=== PATIENT | female | born 1995 | race Caucasian/White ===

== ENCOUNTER 2016-12-17 19:06 | Emergency (ER) | payer SELFPAY ==
[~2016-12-17] VITALS: Ht 154.9 cm; Wt 55.6 kg
[~2016-12-17 19:06] MED LIST: CITA20TA12 PO; HYDR25CA PO; METR500T PO; PANT20TA2 PO; PREN-53 PO; PROM25TA14 PO
[2016-12-17 19:52] LABS: BILIRUBIN,URINE NEGATIVE (NEGATIVE); KETONES,URINE NEGATIVE (NEGATIVE); LEUKOCYTE ESTERASE ,URINE 1+ (NEGATIVE); NITRITE,URINE POSITIVE (NEGATIVE); PH,URINE 6 (5-9); PROTEIN,URINE 2+ (NEGATIVE); UROBILINOGEN,URINE NORMAL (NORMAL)
[2016-12-17 20:01] LABS: WBC,URINE 25-50 /HPF
[2016-12-17 20:02] LABS: RENAL EPITHELIAL CELLS,URINE 0-2 /HPF
--- NOTE | 2016-12-17 20:57 | ED GU-Female ---
General Chief Complaint: -Female Stated Complaint: POSS UTI Nursing Triage Note: BURING WITH URINATION X2 DAYS. Nursing Sepsis Screen: No Definite Risk Source: patient Exam Limitations: no limitations History of Present Illness Time seen by provider: 20:57 Initial Comments 21-year-old female patient presents to the emergency department for complaints of burning with urination for 2 days. Patient is texting on her phone instead of paying attention to questions. Patient instructed to put her phone away during the exam. Patient states "well I just want to get taken care of!" I have advised patient that I am trying to conduct her history and exam so that she can "get taken care of". Patient states she has been spotting the last couple of days. Last menstrual period was in October. States she did have one positive test at home 2 days ago. Denies fevers, nausea, vomiting, abdominal pain. patient reports she has been drinking cranberry juice and taking pyridium for symtpoms. Patient states she lives in the "[facility]" and sees Dr. Wise in [place], [place]. States she did not go to [facility] or [facility] because "they fucking suck." Timing/Duration: other (today onset) Severity/Quality: burning Location: urethral Activities at Onset: none Prior Genitourinary Problems: similar symptoms Sexual [place] History: less than 2 months ago, single partner Modifying Factors: Worsens With Urinating Allergies and Home Medications Allergies Coded Allergies: acetaminophen (Verified Allergy, Severe, 01/01/13) ondansetron HCl (Verified Allergy, Intermediate, 01/01/13) Home Medications Cephalexin 500 Mg Capsule, 500 MG PO TID, #21 Ref 0 Prescribed by: MARIE AMAYA on 12/17/162103 Hydroxyzine Pamoate 25 Mg Capsule, 25 MG PO DAILY, (Reported) Pantoprazole Sodium 20 Mg Tablet.dr, 20 MG PO DAILY, (Reported) Phenazopyridine HCl 200 Mg Tablet, 1 TAB PO Q8H PRN for pain, #30 Ref 0 Prescribed by: MARIE AMAYA on 12/17/162103 Ndg968/Iron Fumarate/FA/Dss 1 Each Tablet, 1 EACH PO, (Reported) Promethazine HCl 25 Mg Tablet, 25 MG PO Q6H PRN for NAUSEA/VOMITING, (Reported) Constitutional: No chills, No fever, No malaise Respiratory: no symptoms reported Cardiovascular: no symptoms reported Gastrointestinal: No abdominal pain, No constipation, No diarrhea, No loss of appetite, No nausea, No vomiting Genitourinary: see HPI, burning, denies discharge, dysuria, denies frequency, denies flank pain, denies pain Musculoskeletal: no symptoms reported Skin: no symptoms reported Psychiatric/Neurological: No Symptoms Reported All Other Systemes Reviewed Negative Unless Noted: Yes (Negative excepted noted.) Past Fkjeqtm-Zfqyft-Zqvnxw Hx Patient Social History Alcohol Use: Denies Use Recreational Drug Use: No Smoking Status: Never a Smoker Recent Foreign Travel: No Contact w/Someone Who Travel: No Recent Infectious Disease Expo: No Recent Hopitalizations: No Seasonal Allergies Seasonal Allergies: No Surgeries HX Surgeries: Yes Surgeries: Tonsillectomy Respiratory Hx Respiratory Disorders: Yes Respiratory Disorders: Asthma Cardiovascular Hx Cardiac Disorders: No Neurological Hx Neurological Disorders: No Reproductive System Hx Reproductive Disorders: No Genitourinary Hx Genitourinary Disorders: No Gastrointestinal Hx Gastrointestinal Disorders: No Musculoskeletal Hx Musculoskeletal Disorders: No Endocrine Hx Endocrine Disorders: No HEENT HX ENT Disorders: No Cancer Hx Cancer: No Psychosocial Hx Psychiatric Problems: No Behavioral Health Disorders: ADD/ADHD Integumentary HX Skin/Integumentary Disorder: No Blood Transfusions Hx Blood Disorders: No Reviewed Nursing Assessment Reviewed/Agree w Nursing PMH: Yes Family Medical History Significant Family History: No Pertinent Family Hx Physical Exam Vital Signs Vital Sign - Last 12Hours 12/17/16 20:05 B/P (MAP) 101/67 Capillary Refill : Less Than 3 Seconds General Appearance: WD/WN, no apparent distress, other (patient was initially sitting on the floor in the corner of the exam room. Patient gets up and sits in the chair without difficulty.) Cardiovascular: regular rate, rhythm, no murmur Respiratory: lungs clear, normal breath sounds, no respiratory distress Gastrointestinal: normal bowel sounds, non tender, soft, no organomegaly, No distended Back: normal inspection, no CVA tenderness Extremities: normal capillary refill Neurologic/Psychiatric: alert, normal mood/affect, oriented x 3 Skin: normal color, warm/dry Progress/Results/Core Measures Results/Orders Lab Results Laboratory Tests Test 12/17/16 19:44 Range/Units Urine Color YELLOW Urine Clarity SLIGHTLY CLOUDY Urine pH 6 5-9 Urine Specific [place] 1.025 H 1.016-1.022 Urine Protein 2+ H NEGATIVE Urine Glucose (UA) NEGATIVE NEGATIVE Urine Ketones NEGATIVE NEGATIVE Urine Nitrite POSITIVE H NEGATIVE Urine Bilirubin NEGATIVE NEGATIVE Urine Urobilinogen NORMAL NORMAL MG/DL Urine Leukocyte Esterase 1+ H NEGATIVE Urine RBC (Auto) 5+ H NEGATIVE Urine RBC 50-100 H /HPF Urine WBC 25-50 H /HPF Urine Renal Epithelial Cells 0-2 /HPF Urine Crystals NONE /LPF Urine Bacteria MODERATE H /HPF Urine Casts NONE /LPF Urine Mucus NEGATIVE /LPF Urine Culture Indicated YES My Orders Orders - MARIE AMAYA Urine Bedside (12/17/16 20:50) Rx-Cephalexin Capsule (Rx-Keflex Capsule (12/17/16 21:06) Phenazopyridine Tablet (Pyridium Tablet) (12/17/16 21:15) Vital Signs/I&O Vital Sign - Last 12Hours 12/17/16 20:05 B/P (MAP) 101/67 Blood Pressure Mean: 78 Point of Care Testing Urine -Bedside: Negative Departure Communication Progress Notes Patient seen and evaluated. [facility]. patient given 200 mg of pyridium and a take home pack of keflex. Impression Impression: Primary Impression: Urinary tract infection Qualified Codes: N30.01 - Acute cystitis with hematuria Disposition: HOME, SELF-CARE Condition: Improved Departure-Patient Inst. Decision time for Depature: 21:03 Referrals: NO,LOCAL PHYSICIAN (PCP/Family) Primary Care Physician Patient Instructions: Urinary Tract Infection, Adult (DC) Add. Discharge Instructions: All discharge instructions reviewed with patient and/or family. Voiced understanding. Medications as instructed. Ibuprofen 800 mg by mouth every 8 hours as needed for pain. Drink plenty of fluids. Follow-up with Dr. Wise as an outpatient if needed. Return to the emergency department for worsened symptoms or any other concerns. Scripts Phenazopyridine HCl (Pyridium) 200 Mg Tablet 1 TAB PO Q8H Y for pain, #30 TAB 0 Refills Prov: MARIE AMAYA 12/17/16 Cephalexin (Cephalexin) 500 Mg Capsule 500 MG PO TID, #21 CAP 0 Refills Prov: MARIE AMAYA 12/17/16 MARIE AMAYA December 17, 2016 20:57
[2016-12-17] MEDS ORDERED: PHEN-640 PO (21:04)
[2016-12-17] MEDS ORDERED: CEPH500C PO (21:04)
[2016-12-17] MEDS ORDERED: RX-CEPHALEXIN (KEFLEX) 250 MG CAP PPK#4 PO STA (21:06)
[2016-12-17] MEDS ORDERED: PHENAZOPYRIDINE 100 MG (PYRIDIUM) TABLET PO ONE (21:15)
[2016-12-17 21:16] VITALS: BP 101/67
== END 2016-12-17 21:18 | disposition home or self-care (01) ==
LOC: EDUNIT# 19:06 → ER 19:09
DX: N30.91 Cystitis, unspecified with hematuria (principal)
CPT/HCPCS: 81000; 84703; 87077; 87088; 87186; 99283

== ENCOUNTER 2017-02-08 19:06 | Emergency (ER) | payer SELFPAY ==
[~2017-02-08] VITALS: Ht 157.5 cm; Wt 46.3 kg
[~2017-02-08 19:06] MED LIST changes: +CEPH500C PO; +PHEN-640 PO
--- OUTSIDE RECORDS SUMMARY | 2017-02-08 19:12 | XMS REPORT | Continuity of Care Document ---
Author Author [employer] Organization [facility] Address Unknown Phone Unavailable Care Team Providers Care Fire And Safety Helper Name Role Phone [employer] Unavailable Unavailable Problems Problem Status Onset Date Classification Date Reported Comments Source Chronic depression (disorder) 10[facility]06[facility]2016 [facility] ([facility]) Diagnosis 10/10/2016 [facility] Cont[facility] of knee (disorder) 09[facility]15/2016 [facility] Gastritis (disorder) 2016 Diagnosis 08/29/2016 [facility] Depressive disorder (disorder) 08/25/2016 Diagnosis 08/29 [facility] Vomiting (disorder) 2015 Diagnosis 07/30/2016 [facility] Hematemesis (disorder) 07/26 Diagnosis 07/30/2016 [facility] Pain in pelvis (finding) 07/2016 Diagnosis 07/28/2016 [facility] Candidiasis of vagina (disorder) 07/24/2016 Diagnosis [facility] Acute abdominal pain (finding) 07/11/2016 [facility] 07[facility] Sinusitis ([facility]) 2015 Diagnosis 07/11/2016 [facility] Nausea (finding) 06/21/2016 Diagnosis 06/25/2016 [facility] Otitis externa (disorder) Diagnosis 06/25/2016 [facility] Gastroenteritis (disorder) 06/05/2016 Diagnosis 2015 [facility] No data available for this section Problem 11/11/2016 [facility] Medications Medication Details Route Status Patient Instructions Ordering Provider Order Date Source No Known Medications No known medications Active [facility] Allergies, Adverse Reactions, Alerts Immunizations Immunization Date Given Site Status Last Updated Comments Source No data available for this section No data available for this section [facility] Results Vital Signs Encounters Location Location Details Encounter Type Encounter Number Reason For Visit Attending Provider ADM Date DC Date Status Source [facility] [id number] Cordell Wise 06/05/2016 06/06/2016 [facility] [id number] . LAB [facility] 06/20/2016 06/21/2016 [facility] [id number] Cordell Wise 06/21/2016 06/22/2016 [facility] [id number] Cordell Wise 07/07/2016 [facility] [id number] Kvng Cuevas 07/11/2016 [facility] CD:[id number] Clinic ( Outpatient) [id number] Cordell Wise 07/24/2016 07/24/2016 Active [facility] [id number] Cordell Wise 07/26/2016 07/27/2016 [facility] CD:[id number] Clinic ( Outpatient) [id number] Cordell Wise 08/02/2016 Active [facility] CD:[id number] Outpatient [id number] Kvng Cuevas 08/16/2016 [id number] Clinic ( Outpatient) [id number] Cordell Wise 08/22/2016 Active [facility] [id number] Cordell Wise 08/25/2016 08/26/2016 [facility] [id number] Kvng Cuevas 09/15/2016 09/16/2016 [facility] [id number] Cordell Wise 10/06/2016 10/07/2016 [facility] CD:[id number] Clinic ( Outpatient) [id number] Cordell Wise 10/24/2016 Active [facility] CD:[id number] Clinic ( Outpatient) [id number] Cordell Wise 10/25/2016 Active [facility] Cancel/No Show [id number] Cordell Wise 11/07/2016 11/07/2016 [facility] CD:[id number] Clinic ( Outpatient) [id number] Cordell Wise 01/01/2017 Active [facility] Procedures Procedure Code Date Perfomer Comments Source gallbladder 08/13/2015 [facility] wisdom teeth removed 2009 [facility] tonsillectomy 08/13/2005 [facility] No data available for this section [facility] Plan of Care Social History Assessment and Plan Family History Value Date Source Advance Directives Order Name Results Value Date Source
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
--- OUTSIDE RECORDS SUMMARY | 2017-02-08 19:15 | XMS REPORT ---
Author Author [facility] Organization [facility] Address Unknown Phone Unavailable Care Team Providers Care Cleaner Wall Name Role Phone Cordell Wise PCP Encounter [id number] [id number] Date(s): 01/01/17 - 01/01/[address] [address] Attending Physician: Cordell Wise MD Vital Signs No data available for this section Problem List No data available for this section Allergies, Adverse Reactions, Alerts No data available for this section Medications No data available for this section Results No data available for this section Immunizations No data available for this section Procedures No data available for this section Social History No data available for this section Assessment and Plan No data available for this section
--- OUTSIDE RECORDS SUMMARY | 2017-02-08 19:15 | XMS REPORT | Continuity of Care Document ---
Author Author [facility] Address Unknown Phone Unavailable Allergies Active Description Code Type Severity Reaction Onset Reported/Identified Relationship to Patient Clinical Status Yes acetaminophen [id number] Drug Allergy Severe N/A 01/01/2013 Yes ondansetron HCl [id number] Drug Allergy Moderate N/A 01/01/2013 Medications Problems Date Dx Coded Attending Type Code Diagnosis Diagnosed By 11/07/2012 JUAN MULLEN MD 530.81 GERD 11/07/2012 JUAN MULLEN MD 783.22 UNDERWEIGHT 01/02/2013 EMILY GOLDMAN, SMITH T Ot 789.00 ABDOMINAL PAIN, UNSPECIFIED SITE 10/06/2013 RADHA BLACKMON DO S Ot 646.83 PREG COMPL NEC-ANTEPART 10/06/2013 RADHA BLACKMON DO Ot 789.00 ABDOMINAL PAIN, UNSPECIFIED SITE 09/17/2014 TERRI BRYANT MD Ot 616.10 VAGINITIS NOS 09/17/2014 TERRI BRYANT MD Ot 625.9 FEM GENITAL SYMPTOMS NOS 09/17/2014 TERRI BRYANT MD Ot 626.2 EXCESSIVE MENSTRUATION 08/22/2015 CATHIE FINLEY MD Ot K21.9 GASTRO-ESOPHAGEAL REFLUX DISEASE WITHOUT 08/22/2015 CATHIE FINLEY MD Ot O47.03 FALSE LABOR BEFORE 37 COMPLETED WEEKS OF 08/22/2015 CATHIE FINLEY MD Ot O99.613 DISEASES OF THE DGSTV SYS COMP 08/22/2015 CATHIE FINLEY MD, Ot Z3A.34 34 WEEKS GESTATION OF 12/20/2016 MARIE ESPINOSA Ot N30.91 CYSTITIS, UNSPECIFIED WITH HEMATURIA 12/20/2016 MARIE ESPINOSA Ot R30.0 DYSURIA Procedures Code [place] [id number] URINE TEST (IN-HOUSE) 11/07/2012 84119 UA W/ CULTURE IF INDICATED 11/07/2012 Results Test Result Range Complete urinalysis with reflex to culture - 12/17/16 19:44 Urine color determination YELLOW NRG Urine clarity determination SLIGHTLY CLOUDY NRG Urine pH measurement by test strip 6 5- 9 Specific gravity of urine by test strip 1.025 1.016-1.022 Urine protein assay by test strip, semi-quantitative 2+ NEGATIVE Urine glucose detection by automated test strip NEGATIVE NEGATIVE Erythrocytes detection in urine sediment by light microscopy 5+ NEGATIVE Urine ketones detection by automated test strip NEGATIVE NEGATIVE Urine nitrite detection by test strip POSITIVE NEGATIVE Urine total bilirubin detection by test strip NEGATIVE NEGATIVE Urine urobilinogen measurement by automated test strip (mass/volume) NORMAL NORMAL Urine leukocyte esterase detection by dipstick 1+ NEGATIVE Automated urine sediment erythrocyte count by microscopy (number/high power field) [HPF] NRG Automated urine sediment leukocyte count by microscopy (number/high power field ) [HPF] NRG Bacteria detection in urine sediment by light microscopy MODERATE NRG Crystals detection in urine sediment by light microscopy NONE NRG Casts detection in urine sediment by light microscopy NONE NRG Mucus detection in urine sediment by light microscopy NEGATIVE NRG Complete urinalysis with reflex to culture YES NRG Renal epithelial cells detection in urine sediment by light microscopy 0-2 NRG Bacterial urine culture - 12/17/16 19:44 Bacterial urine culture [id number] NRG COLONY COUNT 10,000/ML - 100,000/ML NRG FTX;REPORTABLE SENSITIVITY REPORTED 12/19/16 7:45 NRG FREE TEXT ENTRY 2 PLUS, MIXED GRAM POSITIVES <10,000/ML NRG Bacterial susceptibility panel - 12/17/16 19:44 Gentamicin susceptibility test by minimum inhibitory concentration <= NRG Trimethoprim/sulfamethoxazole susceptibility test by minimum inhibitoryconcentration <= NRG Ampicillin susceptibility test by minimum inhibitory concentration 4 NRG Tobramycin susceptibility test by minimum inhibitory concentration <= NRG Cefazolin susceptibility test by minimum inhibitory concentration <= NRG Ceftriaxone susceptibility test by minimum inhibitory concentration <= NRG Ampicillin/sulbactam susceptibility test by minimum inhibitory concentration <= NRG Piperacillin/tazobactam susceptibility test by minimum inhibitory concentration <= NRG Ciprofloxacin susceptibility test by minimum inhibitory concentration <= NRG Meropenem susceptibility test by minimum inhibitory concentration <= NRG Nitrofurantoin susceptibility test by minimum inhibitory concentration <= NRG Aztreonam susceptibility test by minimum inhibitory concentration <= NRG Extended spectrum beta lactamase (ESBL) producing bacteria susceptibility test by minimum inhibitory concentration - NRG Encounters ACCT No. Visit Date/Time Discharge Status Pt. Type Provider Facility Loc./Unit Complaint [id number] 11/07/2012 10:30:00 11/07/2012 23: 59:59 CLS Outpatient MAITE FIORE MD, JUAN Scott
[2017-02-08] MEDS ORDERED: ANTACID SUSP 30 ML UDC (MYLANTA) PO ONE (19:30)
[2017-02-08] MEDS ORDERED: LIDOCAINE 2% VISCOUS 15 ML UDC PO ONE (19:30)
[2017-02-08 19:41] LABS: BILIRUBIN,URINE NEGATIVE (NEGATIVE); KETONES,URINE NEGATIVE (NEGATIVE); LEUKOCYTE ESTERASE ,URINE 3+ (NEGATIVE); NITRITE,URINE NEGATIVE (NEGATIVE); PH,URINE 5 (5-9); PROTEIN,URINE 2+ (NEGATIVE); UROBILINOGEN,URINE 1 MG/DL (NORMAL)
--- NOTE | 2017-02-08 19:46 | ED Abdominal Pain ---
General Chief Complaint: Abdominal/GI Problems Stated Complaint: UPPER ABDOMINAL PAIN Nursing Triage Note: patient reports diffuse abdomen pain x 3-4 weeks. patient reports nausea and diarrhea. patient reports she hasn't had per menstrual cycle in 3 to 4 months Sepsis Screen: No Definite Risk Source of Information: Patient Exam Limitations: No Limitations History of Present Illness Time Seen By Provider: 19:22 Initial Comments This 21-year-old young lady presents to the emergency room with complaints of left upper quadrant pain for the past 4 days. Pain is just below the ribs on the left side. It is very painful to eat or drink. She has pain instantly after swallowing. She does report a history of ulcers. She denies any vomiting or diarrhea. She denies any alcohol or drug use. She reports having a positive test about 3 weeks ago but states she doesn't know if she is . Her last menstrual period was 3 or 4 months ago and it is not unusual for her to have irregular cycles. Her primary care provider is Debbie Wise in [place]. She is in town to work [email or web address] for the holiday. She is afebrile. Allergies and Home Medications Allergies Coded Allergies: acetaminophen (Verified Allergy, Severe, 01/01/13) ondansetron HCl (Verified Allergy, Intermediate, 01/01/13) Home Medications Cephalexin 500 Mg Capsule, 500 MG PO TID, #21 Ref 0 Prescribed by: MARIE AMAYA on 12/17/162103 Hydroxyzine Pamoate 25 Mg Capsule, 25 MG PO DAILY, (Reported) Omeprazole 20 Mg Capsule., 20 MG PO BID, #30 Prescribed by: SMITH DAVID on 02/08/171957 Pantoprazole Sodium 20 Mg Tablet., 20 MG PO DAILY, (Reported) Phenazopyridine HCl 200 Mg Tablet, 1 TAB PO Q8H PRN for pain, #30 Ref 0 Prescribed by: MARIE AMAYA on 12/17/162103 Rrl831/Iron Fumarate/FA/Dss 1 Each Tablet, 1 EACH PO, (Reported) Promethazine HCl 25 Mg Tablet, 25 MG PO Q6H PRN for NAUSEA/VOMITING, (Reported) Review of Systems Constitutional: no symptoms reported EENTM: No Symptoms Reported Respiratory: No Symptoms Reported Cardiovascular: No Symptoms Reported Gastrointestinal: See HPI Genitourinary: See HPI Musculoskeletal: no symptoms reported Skin: no symptoms reported Psychiatric/Neurological: No Symptoms Reported Endocrine: No Symptoms Reported Past Mfeiwzh-Qewnum-Ouxgdr Hx Patient Social History Alcohol Use: Denies Use Recreational Drug Use: No Smoking Status: Never a Smoker Type Used: Cigarettes Recent Foreign Travel: No Contact w/Someone Who Travel: No Recent Infectious Disease Expo: No Recent Hopitalizations: No Seasonal Allergies Seasonal Allergies: No Surgeries HX Surgeries: Yes (wisdom teeth) Surgeries: Adenoidectomy, Gallbladder, Tonsillectomy Respiratory Hx Respiratory Disorders: Yes Respiratory Disorders: Asthma Cardiovascular Hx Cardiac Disorders: No Neurological Hx Neurological Disorders: No Reproductive System : Yes (reported positive test 3 weeks prior) Hx Reproductive Disorders: Yes (irregular menstrual cycles) Female Reproductive Disorders: Menstrual Problems, Endometriosis Genitourinary Hx Genitourinary Disorders: No Gastrointestinal Hx Gastrointestinal Disorders: Yes Gastrointestinal Disorders: Ulcer Musculoskeletal Hx Musculoskeletal Disorders: No Endocrine Hx Endocrine Disorders: No HEENT HX ENT Disorders: No Cancer Hx Cancer: No Psychosocial Hx Psychiatric Problems: Yes Behavioral Health Disorders: ADD/ADHD, Depression Integumentary HX Skin/Integumentary Disorder: No Blood Transfusions Hx Blood Disorders: No Family Medical History Significant Family History: No Pertinent Family Hx Physical Exam Vital Signs VS - Last 72 Hours, by Label 02/08/17 19:20 Temp 98.8 Pulse 81 Resp 18 B/P (MAP) 95/74 Pulse Ox 99 Capillary Refill : Less Than 3 Seconds General Appearance: WD/WN, no apparent distress, thin (extremely thin) HEENT: PERRL/EOMI, normal ENT inspection, pharynx normal Neck: normal inspection Respiratory: lungs clear, normal breath sounds, no respiratory distress, no accessory muscle use Cardiovascular: regular rate, rhythm, no edema, no murmur Gastrointestinal: normal bowel sounds, soft, tenderness (diffuse but most intense in the left upper quadrant) Extremities: normal inspection, no pedal edema Neurologic/Psychiatric: clock and watch hands dipper II-XII nml as tested, no motor/sensory deficits, alert, normal mood/affect, oriented x 3 Skin: normal color, warm/dry Progress/Results/Core Measures Results/Orders Lab Results Laboratory Tests Test 02/08/17 19:30 Range/Units Urine Color YELLOW Urine Clarity SLIGHTLY CLOUDY Urine pH 5 5-9 Urine Specific [place] 1.030 H 1.016-1.022 Urine Protein 2+ H NEGATIVE Urine Glucose (UA) NEGATIVE NEGATIVE Urine Ketones NEGATIVE NEGATIVE Urine Nitrite NEGATIVE NEGATIVE Urine Bilirubin NEGATIVE NEGATIVE Urine Urobilinogen 1 NORMAL MG/DL Urine Leukocyte Esterase 3+ H NEGATIVE Urine RBC (Auto) 1+ H NEGATIVE Urine RBC 2-5 H /HPF Urine WBC 10-25 H /HPF Urine Squamous Epithelial Cells >50 H /HPF Urine Crystals NONE /LPF Urine Bacteria MODERATE H /HPF Urine Casts NONE /LPF Urine Mucus SMALL H /LPF Urine Culture Indicated YES My Orders Orders - SMITH DIAZ MD Ua Culture If Indicated (02/08/17 19:22) Urine Bedside (02/08/17 19:22) Lidocaine 2% Viscous 15 Ml (Xylocaine Vi (02/08/17 19:30) Antacid Suspension (Mylanta Suspension (02/08/17 19:30) Urine Culture (02/08/17 19:30) Medications Given in ED Current Medications Medications Dose Ordered Sig/Maria Dolores Route Start Time Stop Time Status Last Admin Dose Admin Al Hydrox/Mg Hydrox/Simethicone 30 ml ONCE ONCE PO 02/08/17 19:30 02/08/17 19:32 DC 02/08/17 19:36 30 ML Lidocaine HCl 15 ml ONCE ONCE PO 02/08/17 19:30 02/08/17 19:32 DC 02/08/17 19:36 15 ML Vital Signs/I&O Vital Sign - Last 12Hours 02/08/17 19:20 Temp 98.8 Pulse 81 Resp 18 B/P (MAP) 95/74 Pulse Ox 99 Blood Pressure Mean: 81 Point of Care Testing Urine -Bedside: Negative Progress Note : Progress Note Bedside test was negative. Patient reported GI cocktail did not improve her pain or tenderness on reexamination. Patient now reports that she had one episode of diarrhea with small amount of blood. I advised her to proceed with blood work for further evaluation. Patient declines further evaluation as she is afraid of needles. She wishes to be discharged. Departure Impression Impression: Primary Impression: Left upper quadrant pain Additional Impressions: Diarrhea Qualified Codes: R19.7 - Diarrhea, unspecified Urinary tract infection Qualified Codes: N39.0 - Urinary tract infection, site not specified Disposition: HOME, SELF-CARE Condition: Unchanged Departure-Patient Inst. Decision time for Depature: 19:50 Referrals: NO,LOCAL PHYSICIAN (PCP/Family) Primary Care Physician Patient Instructions: Acute Abdomen (Belly Pain), Adult (DC), Diarrhea in Adolescents and Adults, Urinary Tract Infection, Adult (DC) Add. Discharge Instructions: Your urine sample suggests you have a urinary tract infection. Drink plenty of clear liquids and complete your antibiotics as prescribed. Observe a clear liquid diet for the remainder of the day. Gradually advance your diet with small quantities of bland food as tolerated. Take omeprazole 20 mg twice daily as prescribed. Your workup in the emergency room was incomplete. Blood work has been recommended. You need to follow-up with your primary care provider soon as possible. Take only Tylenol (acetaminophen) up to 650 mg every 6 hours as needed for pain. Return to care if symptoms persist or worsen. Avoid the following: Eating large meals, eating close to bedtime, spicy foods, carbonation, caffeine, chocolate, alcohol, tobacco, citrus fruits and juices, tomato products, mint, fatty or greasy foods, NSAID medications such as ibuprofen or naproxen, or anything else you know irritates your stomach. All discharge instructions reviewed with patient and/or family. Voiced understanding. Scripts Cephalexin (Keflex) 500 Mg Capsule 500 MG PO QID, #28 CAP Prov: SMITH DIAZ MD 02/08/17 Omeprazole (Omeprazole) 20 Mg Capsule.dr 20 MG PO BID, #30 CAP Prov: SMITH DIAZ MD 02/08/17 SMITH DIAZ MD Feb 08, 2017 19:46
[2017-02-08 19:54] LABS: SQUAMOUS EPITHELIAL CELL,UR >50 /HPF
[2017-02-08] MEDS ORDERED: OMEP20CA12 PO (19:58)
[2017-02-08] MEDS ORDERED: CEPH-507 PO (20:00)
[2017-02-08 20:03] VITALS: BP 95/74
== END 2017-02-08 20:03 | disposition home or self-care (01) ==
LOC: EDUNIT# 19:06 → ER 19:08
DX: R10.12 Left upper quadrant pain (principal); R19.7 Diarrhea, unspecified; N39.0 Urinary tract infection, site not specified
CPT/HCPCS: 81000; 84703; 87088; 99282

== ENCOUNTER 2017-06-27 10:53 | Emergency (ER) | payer MEDICAID ==
[~2017-06-27] VITALS: Ht 157.5 cm; Wt 49.9 kg
[~2017-06-27 10:53] MED LIST changes: +CEPH-507 PO; +OMEP20CA12 PO
[2017-06-27] MEDS ORDERED: RANI-515 PO (12:04)
[2017-06-27] MEDS ORDERED: PREN-53 PO (12:04)
[2017-06-27] MEDS ORDERED: NITR-65 PO (12:04)
--- OUTSIDE RECORDS SUMMARY | 2017-06-27 12:15 | XMS REPORT | Continuity of Care Document ---
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 [employer] Unavailable Unavailable Problems Problem Status Onset Date Classification Date Reported Comments Source Chronic depression (disorder) 10/06/2016 [facility] of knee (disorder) Diagnosis 10/10/2016 [facility] Contusion of knee (disorder) 09/15/2016 [facility] Gastritis (disorder) 2016 Diagnosis 08/29/2016 [facility] Depressive disorder (disorder) 08/25/2016 Diagnosis 08/29 [facility] Vomiting (disorder) 2015 Diagnosis 07/30/2016 [facility] Hematemesis (disorder) 07/26 Diagnosis 07/30/2016 [facility] Pain in pelvis (finding) 07/2016 Diagnosis 07/28/2016 [facility] Candidiasis of vagina (disorder) 07/24/2016 Diagnosis [facility] Acute abdominal pain (finding) 07/11/2016 Diagnosis 07/15 [facility] Sinusitis (disorder) 2015 Diagnosis 07/11/2016 [facility] Nausea (finding) 06/21/2016 Diagnosis 06/25/2016 [facility] Otitis externa (disorder) Diagnosis 06/25/2016 [facility] Gastroenteritis (disorder) 06/05/2016 Diagnosis 2015 [facility] No data available for this section Problem 11/11/2016 [facility] Medications Medication Details Route Status Patient Instructions Ordering Provider Order Date Source No Known Medications No known medications Active [facility] Allergies, Adverse Reactions, Alerts Immunizations Immunization Date Given Site Status Last Updated Comments Source No data available for this section No data available for this section [facility], [facility] Results Vital Signs Encounters Location Location Details Encounter Type Encounter Number Reason For Visit Attending Provider ADM Date DC Date Status Source [facility] [id number] Cordell Wise 06/05/2016 06/06/2016 [facility] [id number] . LAB [facility] 06/20/2016 06/21/2016 [facility] [id number] Cordell Wise 06/21/2016 06/22/2016 [facility] [id number] Cordell Wise 07/07/2016 [facility] [id number] Kvng Cuevas 07/11/2016 [facility] CD:[id number] Clinic ( Outpatient) [id number] Cordell Wise 07/24/2016 07/24/2016 Active [facility] [id number] Cordell Wise 07/26/2016 07/27/2016 [facility] CD:[id number] Clinic ( Outpatient) [id number] Cordell Wise 08/02/2016 Active [facility] CD:[id number] Outpatient [id number] Kvng Cuevas 08/16/2016 Active [facility] CD:[id number] Clinic ( Outpatient) [id number] Cordell Wise 08/22/2016 Active [facility] [id number] Cordell Wise 08/25/2016 08/26/2016 [facility] [id number] Kvng Cuevas 09/15/2016 09/16/2016 [facility] [id number] Cordell Wise 10/06/2016 10/07/2016 [facility] CD:[id number] Clinic ( Outpatient) [id number] Cordell Wise 10/24/2016 Active [facility] CD:[id number] Clinic ( Outpatient) [id number] Cordell Wise 10/25/2016 Active [facility] Cancel/No Show [id number] Cordell Wise 11/07/2016 11/07/2016 [facility] CD:[id number] Clinic ( Outpatient) [id number] Cordell Wise 01/01/2017 Active [facility] Procedures Procedure Code Date Perfomer Comments Source gallbladder 08/13/2015 [facility] wisdom teeth removed 2009 [facility] tonsillectomy 08/13/2005 [facility] No data available for this section [facility] Plan of Care Social History Assessment and Plan Family History Value Date Source Advance Directives Order Name Results Value Date Source
[2017-06-27 12:16] LABS: BILIRUBIN,URINE NEGATIVE (NEGATIVE); KETONES,URINE NEGATIVE (NEGATIVE); LEUKOCYTE ESTERASE ,URINE 2+ (NEGATIVE); NITRITE,URINE NEGATIVE (NEGATIVE); PH,URINE 6 (5-9); PROTEIN,URINE NEGATIVE (NEGATIVE); UROBILINOGEN,URINE NORMAL (NORMAL)
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
--- NOTE | 2017-06-27 13:33 | ED GI ---
General Chief Complaint: Abdominal/GI Problems Stated Complaint: ABD CRAMPING, 19 WKS 2 DAYS PG Nursing Triage Note: Pt c/o lower back pain that wraps around to her abd x3 days and gradually getting worse. Pt is approx 19 wks . Sepsis Screen: No Definite Risk Source of Information: Patient Exam Limitations: No Limitations History of Present Illness Time Seen By Provider: 11:02 Initial Comments This 22-year-old at 19 weeks and 2 days gestational age presents to the emergency room with couple of days of back ache and cramping that radiates around to the pelvis. Symptoms have become more intense today. She also has had nausea and vomiting that started this morning and diarrhea that started last night. Her estimated due date is November 18, 2017. Ultrasounds have been performed and Dr. Irving's office. She had an ultrasound performed last which she reports was normal. She denies any unusual vaginal discharge or dysuria. She is currently being treated for UTI with Macrobid. Allergies and Home Medications Allergies Coded Allergies: acetaminophen (Verified Allergy, Severe, 01/01/13) ondansetron HCl (Verified Allergy, Intermediate, 01/01/13) Home Medications Nitrofurantoin Monohyd/M-Cryst 100 Mg Capsule, 1 TAB PO BID, (Reported) Afi175/Iron Fumarate/FA/Dss 1 Each Tablet, 1 EACH PO DAILY, (Reported) Ranitidine HCl 150 Mg Tablet, 150 MG PO BID, (Reported) Review of Systems Constitutional: no symptoms reported EENTM: No Symptoms Reported Respiratory: No Symptoms Reported Cardiovascular: No Symptoms Reported Gastrointestinal: See HPI, Diarrhea, Nausea, Vomiting Genitourinary: See HPI Musculoskeletal: see HPI Skin: no symptoms reported Psychiatric/Neurological: No Symptoms Reported Endocrine: No Symptoms Reported Hematologic/Lymphatic: No Symptoms Reported Past Ucynxmw-Furnfw-Hekvgz Hx Patient Social History Alcohol Use: Denies Use Recreational Drug Use: No Smoking Status: Never a Smoker Type Used: Cigarettes Recent Foreign Travel: No Contact w/Someone Who Travel: No Recent Infectious Disease Expo: No Recent Hopitalizations: No Seasonal Allergies Seasonal Allergies: No Surgeries History of Surgeries: Yes (wisdom teeth) Surgeries: Gallbladder, Tonsillectomy Respiratory History of Respiratory Disorde: Yes Respiratory Disorders: Asthma Cardiovascular History of Cardiac Disorders: No Neurological History of Neurological Disord: No Reproductive System : Yes Expected Date of Delivery: Nov 18, 2017 Hx Reproductive Disorders: Yes (irregular menstrual cycles) Female Reproductive Disorders: Menstrual Problems, Endometriosis Genitourinary History of Genitourinary Disor: No Gastrointestinal History of Gastrointestinal Di: Yes Gastrointestinal Disorders: Gastroesophageal Reflux, Ulcer Musculoskeletal History of Musculoskeletal Dis: No Endocrine History of Endocrine Disorders: No HEENT History of HEENT Disorders: No Cancer History of Cancer: No Psychosocial History of Psychiatric Problem: Yes Behavioral Health Disorders: ADD/ADHD, Depression Integumentary History of Skin or Integumenta: No Blood Transfusions History of Blood Disorders: No Family Medical History Significant Family History: No Pertinent Family Hx Physical Exam Vital Signs VS - Last 72 Hours, by Label 06/27/17 06/27/17 11:56 13:44 Temp 98.5 98.5 Pulse 94 90 Resp 18 18 B/P (MAP) 86/51 Pulse Ox 99 99 O2 Delivery Room Air Capillary Refill : Less Than 3 Seconds General Appearance: WD/WN, no apparent distress, thin HEENT: PERRL/EOMI, normal ENT inspection Neck: normal inspection Respiratory: lungs clear, normal breath sounds, no respiratory distress, no accessory muscle use Cardiovascular: regular rate, rhythm, no edema, no murmur Gastrointestinal: normal bowel sounds, soft, tenderness (Left pelvis lateral to the uterus), other (Gravid uterus appropriate for gestational age) Extremities: normal inspection, no pedal edema Neurologic/Psychiatric: icing and glaze maker II-XII nml as tested, no motor/sensory deficits, alert, normal mood/affect, oriented x 3 Skin: normal color, warm/dry Progress/Results/Core Measures Results/Orders Lab Results Laboratory Tests Test 06/27/17 12:00 Range/Units Urine Color YELLOW Urine Clarity CLEAR Urine pH 6 5-9 Urine Specific [place] 1.010 L 1.016-1.022 Urine Protein NEGATIVE NEGATIVE Urine Glucose (UA) NEGATIVE NEGATIVE Urine Ketones NEGATIVE NEGATIVE Urine Nitrite NEGATIVE NEGATIVE Urine Bilirubin NEGATIVE NEGATIVE Urine Urobilinogen NORMAL NORMAL MG/DL Urine Leukocyte Esterase 2+ H NEGATIVE Urine RBC (Auto) NEGATIVE NEGATIVE Urine RBC NONE /HPF Urine WBC 10-25 H /HPF Urine Squamous Epithelial Cells 10-25 H /HPF Urine Crystals NONE /LPF Urine Bacteria TRACE /HPF Urine Casts NONE /LPF Urine Mucus NEGATIVE /LPF Urine Culture Indicated YES My Orders Orders - SMITH DIAZ MD Ua Culture If Indicated (06/27/17 11:02) Urine Culture (06/27/17 12:00) Vital Signs/I&O Vital Sign - Last 12Hours 06/27/17 06/27/17 11:56 13:44 Temp 98.5 98.5 Pulse 94 90 Resp 18 18 B/P (MAP) 86/51 Pulse Ox 99 99 O2 Delivery Room Air Blood Pressure Mean: 63 Progress Note : Time: 13:32 Progress Note Case was reviewed with Dr. Irving. He would like patient moved to labor and delivery for hydration and evaluation. Patient likely has a viral gastroenteritis involving vomiting and diarrhea. He will provide orders once she arrives to women's services. heart tones were 130s to 150s by Doppler. Departure Impression Impression: Primary Impression: Abdominal cramping Additional Impressions: Nausea vomiting and diarrhea Left lower quadrant pain Disposition: 01 HOME, SELF-CARE Condition: Stable Departure-Patient Inst. Decision time for Depature: 13:32 Referrals: SHRUTHI IRVING MD (PCP/Family) Primary Care Physician Patient Instructions: Acute Abdomen (Belly Pain), Adult (DC) Add. Discharge Instructions: Go directly to women's services for hydration and evaluation. Dr. Irving will provide orders. All discharge instructions reviewed with patient and/or family. Voiced understanding. Copy Copies To 1: SHRUTHI IRVING MD, JOSHUA T MD Jun 27, 2017 13:33
[2017-06-27 13:44] VITALS: BP 94/50
== END 2017-06-27 13:44 | disposition home or self-care (01) ==
LOC: EDUNIT# 10:53 → ER 10:56
DX: O23.42 Unspecified infection of urinary tract in pregnancy, second trimester (principal); O99.342 Other mental disorders complicating pregnancy, second trimester; F90.9 Attention-deficit hyperactivity disorder, unspecified type; F32.9 Major depressive disorder, single episode, unspecified; O99.611 Diseases of the digestive system complicating pregnancy, first trimester; K21.9 Gastro-esophageal reflux disease without esophagitis; O99.512 Diseases of the respiratory system complicating pregnancy, second trimester; J45.909 Unspecified asthma, uncomplicated; Z87.11 Personal history of peptic ulcer disease; Z90.89 Acquired absence of other organs; Z3A.19 19 weeks gestation of pregnancy
CPT/HCPCS: 81000; 87088; 99283

== ENCOUNTER 2017-06-27 13:45 | Outpatient (CLI) | payer MEDICAID ==
[~2017-06-27] VITALS: Ht 157.5 cm; Wt 43.6 kg
[~2017-06-27 13:45] MED LIST changes: +NITR-65 PO; +RANI-515 PO
[2017-06-27 13:55] VITALS: BP 98/54
[2017-06-27] MEDS ORDERED: CITRIC ACID/SOB CIT (BICITRA) 30 ML UDC PO ONE (14:30)
[2017-06-27] MEDS ORDERED: INFLUENZA TRIvalent 2017-2018 0.5 ML/45 MCG SYR IM ONE (14:45)
[2017-06-27 14:55] VITALS: BP 98/54
--- NOTE | 2017-07-16 23:54 | Physician Query-Final Dx ---
LILIAM MCCANN 07/16/17 2354: Clinic Account Progress/Dx Physician Query: Please give diagnosis Date of Service Jun 27, 2017 at 13:45 SHRUTHI POSEY MD 07/18/17 1256: Clinic Account Progress/Dx DIAGNOSIS: Diagnosis false labor LILIAM MCCANN Jul 16, 2017 23:54 SHRUTHI POSEY MD Jul 18, 2017 12:56
== END 2017-06-27 14:55 | disposition home or self-care (01) ==
LOC: WSo 13:45 → LDRP 13:46 → WSo 14:55
PROVIDERS: ATTEND Obstetrics & Gynecology
DX: O47.02 False labor before 37 completed weeks of gestation, second trimester (principal); Z3A.19 19 weeks gestation of pregnancy
CPT/HCPCS: 99212

== ENCOUNTER 2017-08-07 13:45 | Outpatient (CLI) | payer MEDICAID ==
[~2017-08-07] VITALS: Ht 157.5 cm; Wt 50.4 kg
[2017-08-07] MEDS ORDERED: INFLUENZA TRIvalent 2017-2018 0.5 ML/45 MCG SYR IM ONE (15:15)
--- NOTE | 2017-08-09 09:43 | Physician Query-Final Dx ---
PIOTR PERLA 08/09/17 0943: Clinic Account Progress/Dx Physician Query: Please give diagnosis Date of Service Aug 07, 2017 at 13:45 SHRUTHI POSEY MD 08/09/17 1151: Clinic Account Progress/Dx DIAGNOSIS: Diagnosis false labor PIOTR PERLA Aug 09, 2017 09:43 SHRUTHI POSEY MD Aug 09, 2017 11:51
== END 2017-08-07 14:45 | disposition home or self-care (01) ==
LOC: LDRP 13:45 → WSo 13:45
PROVIDERS: ATTEND Obstetrics & Gynecology
DX: O47.02 False labor before 37 completed weeks of gestation, second trimester (principal); Z3A.25 25 weeks gestation of pregnancy
CPT/HCPCS: 99214

== ENCOUNTER 2017-08-30 12:27 | Outpatient (CLI) | payer MEDICAID ==
[~2017-08-30] VITALS: Ht 158.1 cm; Wt 49.9 kg
[2017-08-30 12:32] VITALS: BP 90/54
[2017-08-30] MEDS ORDERED: CITRIC ACID/SOB CIT (BICITRA) 30 ML UDC PO ONE (13:15)
[2017-08-30] MEDS ORDERED: INFLUENZA TRIvalent 2017-2018 0.5 ML/45 MCG SYR IM ONE (13:30)
[2017-08-30] MEDS ORDERED: RANI75TA21 PO (14:15)
[2017-08-30 14:20] VITALS: BP 90/54
--- NOTE | 2017-08-31 07:32 | Physician Query-Final Dx ---
PIOTR PERLA 08/31/17 0732: Clinic Account Progress/Dx Physician Query: Please give diagnosis Date of Service Aug 30, 2017 at 12:27 SHRUTHI POSEY MD 08/31/17 0759: Clinic Account Progress/Dx DIAGNOSIS: Diagnosis false labor PIOTR PERLA Aug 31, 2017 07:32 SHRUTHI POSEY MD Aug 31, 2017 07:59
== END 2017-08-30 14:20 | disposition home or self-care (01) ==
LOC: WSo 12:27
PROVIDERS: ATTEND Obstetrics & Gynecology
DX: O47.03 False labor before 37 completed weeks of gestation, third trimester (principal); Z3A.28 28 weeks gestation of pregnancy
CPT/HCPCS: 99214

== ENCOUNTER 2018-02-13 19:24 | Emergency (ER) | payer MEDICAID ==
[~2018-02-13] VITALS: Ht 157.5 cm; Wt 41.8 kg
[~2018-02-13 19:24] MED LIST changes: +RANI75TA21 PO
[2018-02-13 19:31] VITALS: BP 112/75
[2018-02-13] MEDS ORDERED: KETOROLAC 30 MG/ML VIAL IVP ONE (19:45)
--- NOTE | 2018-02-13 19:46 | ED Abdominal Pain ---
General Chief Complaint: Abdominal/GI Problems Stated Complaint: ABD PAIN Nursing Triage Note: pt presents to er with complaint of abd pain for five hours. states she has vomitied twice. Sepsis Screen: No Definite Risk Source of Information: Patient, Family Exam Limitations: No Limitations History of Present Illness Date Seen by Provider: Feb 13, 2018 Time Seen by Provider: 19:35 Initial Comments Patient is a 22-year-old female who presents to the emergency room with left lower quadrant pain nausea and vomiting that started 5 hours prior to arrival. She reports that he makes it worse. She denies any diarrhea, constipation, frequency with urination, burning with urination, or urgency, She reports that her menstrual cycle ended 5 days ago but she thinks she might be . Patient was on her cell phone throughout my examination. Timing/Duration: 4-6 Hours Severity/Quality: Mild Location: LLQ Radiation: No Radiation Activities at Onset: None Modifying Factors: Worsens With Eating Associated Symptoms: Denies Symptoms; No Back Pain, No Chest Pain, No Diaphoresis, No Fever/Chills; Nausea/Vomiting; No Shortness of Air Allergies and Home Medications Allergies Coded Allergies: acetaminophen (Verified Allergy, Severe, 01/01/13) ondansetron HCl (Verified Allergy, Intermediate, 01/01/13) Home Medications Ber279/Iron Fumarate/FA/Dss 1 Each Tablet, 1 EACH PO DAILY, (Reported) Ranitidine HCl 75 Mg Tablet, 75 MG PO BID Prescribed by: NABILA SUAREZ on 08/30/17 1415 Patient Home Medication List Home Medication List Reviewed: Yes Review of Systems Constitutional: see HPI; No chills, No diaphoresis EENTM: See HPI; No Blurred Vision, No Double Vision Respiratory: See HPI; Denies Cough, Denies Orthopnea Cardiovascular: See HPI; Denies Chest Pain, Denies Edema Gastrointestinal: See HPI; Denies Abdomen Distended; Abdominal Pain; Denies Diarrhea, Denies Difficulty Swallowing; Nausea; Denies Poor Appetite, Denies Poor Fluid Intake, Denies Rectal Bleeding; Vomiting Genitourinary: See HPI; Denies Burning, Denies Discharge, Denies Drainage, Denies Frequency, Denies Flank Pain, Denies Hematuria Musculoskeletal: see HPI; No back pain, No gout, No joint pain Skin: see HPI; No change in color, No change in hair/nails Psychiatric/Neurological: See HPI; Denies Anxiety, Denies Depressed Endocrine: See HPI; Denies Excessive Sweating, Denies Flushing Hematologic/Lymphatic: See HPI; Denies Anemia All Other Systems Reviewed Negative Unless Noted: Yes Past Tspcqhn-Gcrtcg-Lscomt Hx Past Med/Social Hx: Reviewed Nursing Past Med/Soc Hx Patient Social History Alcohol Use: Denies Use Recreational Drug Use: No Type Used: Cigarettes Recent Foreign Travel: No Contact w/Someone Who Travel: No Recent Infectious Disease Expo: No Recent Hopitalizations: No Seasonal Allergies Seasonal Allergies: No Past Medical History Surgeries: Yes (wisdom teeth) Gallbladder, Tonsillectomy Respiratory: Yes Asthma Cardiac: No Neurological: No Reproductive Disorders: Yes (irregular menstrual cycles) Female Reproductive Disorders: Menstrual Problems, Endometriosis Genitourinary: No Gastrointestinal: Yes Gastroesophageal Reflux, Ulcer Musculoskeletal: No Endocrine: No HEENT: No Cancer: No Psychosocial: Yes ADD/ADHD, Depression Integumentary: No Blood Disorders: No Family Medical History Reviewed Nursing Family Hx No Pertinent Family Hx Physical Exam Vital Signs Vital Signs - First Documented 02/13/18 19:31 Pulse 78 Resp 18 B/P (MAP) 112/75 (87) Pulse Ox 96 O2 Delivery Room Air Capillary Refill : Less Than 3 Seconds General Appearance: WD/WN, no apparent distress HEENT: PERRL/EOMI, normal ENT inspection, TMs normal, pharynx normal Neck: non-tender, full range of motion, supple, normal inspection Respiratory: chest non-tender, lungs clear, normal breath sounds, no respiratory distress Cardiovascular: regular rate, rhythm, no edema, no gallop, no JVD, no murmur Gastrointestinal: normal bowel sounds, soft, no organomegaly, no pulsatile mass , tenderness (tenderness to the left lower quadrant) Extremities: normal range of motion, non-tender, normal inspection, no pedal edema, no calf tenderness Back: normal inspection, no CVA tenderness, no vertebral tenderness Neurologic/Psychiatric: alert, normal mood/affect, oriented x 3 Skin: normal color, warm/dry Lymphatic: no adenopathy Progress/Results/Core Measures Results/Orders Vital Signs/I&O 02/13/18 19:31 Pulse 78 Resp 18 B/P (MAP) 112/75 (87) Pulse Ox 96 O2 Delivery Room Air Blood Pressure Mean: 87 Progress Progress Note : Time: 19:45 Progress Note The nurse caring for the patient informed me that the patient decided to leave AGAINST MEDICAL ADVICE due to not having childcare. The nurse said that she did sign AMA paperwork. Departure Impression Primary Impression: Left against medical advice Disposition: 07 AGAINST MEDICAL ADVICE Condition: Stable/Unchanged Departure-Patient Inst. Referrals: ANGELA SAMS MD (PCP/Family) Primary Care Physician AMARA ORDONEZ Feb 13, 2018 19:46
== END 2018-02-13 19:40 | disposition left against medical advice (07) ==
LOC: EDUNIT# 19:24 → ER 19:26
DX: R10.9 Unspecified abdominal pain (principal)
CPT/HCPCS: 99282

== ENCOUNTER 2018-07-08 17:00 | Emergency (ER) | payer MEDICAID ==
[~2018-07-08] VITALS: Ht 157.5 cm; Wt 46.4 kg
[2018-07-08 17:33] LABS: BILIRUBIN,URINE NEGATIVE (NEGATIVE); CLARITY,URINE CLEAR; COLOR,URINE YELLOW; GLUCOSE, URINE (UA) NEGATIVE (NEGATIVE); KETONES,URINE NEGATIVE (NEGATIVE); LEUKOCYTE ESTERASE ,URINE 1+ (NEGATIVE); NITRITE,URINE NEGATIVE (NEGATIVE); PH,URINE 6 (5-9); PROTEIN,URINE 1+ (NEGATIVE); UROBILINOGEN,URINE 1 MG/DL (NORMAL)
--- NOTE | 2018-07-08 17:41 | ED GU-Female ---
General Chief Complaint: -Female Stated Complaint: 8 WKS PREG/ABD PAIN/DIZZINESS Nursing Triage Note: PT STATES 8 WKS , MID ABD PAIN FOR ABOUT 2 DAYS, NAUSEA NO VOMITING, DIARRHEA. Nursing Sepsis Screen: No Definite Risk Source: patient Exam Limitations: no limitations History of Present Illness Date Seen by Provider: Jul 08, 2018 Time Seen by Provider: 17:28 Initial Comments Here with report of nausea without vomiting and no diarrhea with some lower abdominal pain and special on the left side over the last 2 days. Approximately 8 weeks per the patient. She did have spotting last night that has stopped. 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 Last sexual activity 2 days ago. Denies vaginal discharge otherwise. This is her fourth . Timing/Duration: yesterday, changing over time Severity/Quality: mild, cramping Location: LLQ Radiation: suprapubic Activities at Onset: none Sexual Three Way History: less than 2 months ago, single partner Modifying Factors: Improves With Resting Associated Symptoms: abdominal pain; No dysuria, No fever/chills, No lower back pain; nausea/vomiting; No urinary frequency Allergies and Home Medications Allergies Coded Allergies: acetaminophen (Verified Allergy, Severe, 01/01/13) ondansetron HCl (Verified Allergy, Intermediate, 01/01/13) Home Medications Zij366/Iron Fumarate/FA/Dss 1 Each Tablet, 1 EACH PO DAILY, (Reported) Ranitidine HCl 75 Mg Tablet, 75 MG PO BID Prescribed by: NABILA SUAREZ on 08/30/17 1415 Patient Home Medication List Home Medication List Reviewed: Yes Review of Systems Review of Systems Constitutional: see HPI; No chills, No fever EENTM: no symptoms reported Respiratory: no symptoms reported Cardiovascular: no symptoms reported Gastrointestinal: see HPI, abdominal pain, nausea; No vomiting Genitourinary: denies burning, denies dysuria Expected Date of Delivery: Feb 15, 2019 Musculoskeletal: no symptoms reported Skin: no symptoms reported Past Vadoxva-Hfugue-Tazcgt Hx Past Med/Social Hx: Reviewed Nursing Past Med/Soc Hx Patient Social History Alcohol Use: Denies Use Recreational Drug Use: No Smoking Status: Never a Smoker Type Used: Cigarettes 2nd Hand Smoke Exposure: Yes Recent Foreign Travel: No Contact w/Someone Who Travel: No Recent Infectious Disease Expo: No Recent Hopitalizations: No Seasonal Allergies Seasonal Allergies: Yes Past Medical History Surgeries: Yes (wisdom teeth) Gallbladder, Tonsillectomy Respiratory: Yes Asthma Cardiac: No Neurological: No : Yes Expected Date of Delivery: Feb 15, 2019 Last Menstrual Period: May 11, 2018 Hx : 4 Hx Para: 3 Reproductive Disorders: Yes (irregular menstrual cycles) Female Reproductive Disorders: Menstrual Problems, Endometriosis Genitourinary: No Gastrointestinal: Yes Gastroesophageal Reflux, Ulcer Musculoskeletal: No Endocrine: No HEENT: No Cancer: No Psychosocial: Yes ADD/ADHD, Depression Integumentary: No Blood Disorders: No Family Medical History Reviewed Nursing Family Hx No Pertinent Family Hx Physical Exam Vital Signs Vital Signs - First Documented 07/08/18 17:15 Temp 97.6 Pulse 81 Resp 20 B/P (MAP) 97/60 (72) O2 Delivery Room Air Capillary Refill : Less Than 3 Seconds Height, Weight, BMI Height: 5'2.00" Weight: 102lbs. 4.0oz. 46.497106yx; 20.0 BMI Method:Stated General Appearance: WD/WN, no apparent distress HEENT: PERRL/EOMI, pharynx normal Neck: full range of motion, supple Cardiovascular: regular rate, rhythm, no murmur Respiratory: lungs clear, normal breath sounds Gastrointestinal: soft; No guarding, No rebound; tenderness (suprapubic and left lower quadrant) Back: normal inspection, no CVA tenderness, no vertebral tenderness Extremities: non-tender, normal inspection Neurologic/Psychiatric: alert, oriented x 3 Skin: normal color, warm/dry Progress/Results/Core Measures Suspected Sepsis Recent Fever Within 48 Hours: No Infection Criteria Present: None New/Unexplained Altered Menta: No Sepsis Screen: No Definite Risk SIRS Temperature:97.6 Pulse: 81 Respiratory Rate: 20 Laboratory Tests 07/08/18 17:47: White Blood Count 5.1 Blood Pressure 97 /60 Mean: 72 Laboratory Tests 07/08/18 17:47: Creatinine 0.66, Platelet Count 281 Results/Orders Lab Results Laboratory Tests Test 07/08/18 17:25 07/08/18 17:47 Range/Units Urine Color YELLOW Urine Clarity CLEAR Urine pH 6 5-9 Urine Specific Elbert 1.025 H 1.016-1.022 Urine Protein 1+ H NEGATIVE Urine Glucose (UA) NEGATIVE NEGATIVE Urine Ketones NEGATIVE NEGATIVE Urine Nitrite NEGATIVE NEGATIVE Urine Bilirubin NEGATIVE NEGATIVE Urine Urobilinogen 1 NORMAL MG/DL Urine Leukocyte Esterase 1+ H NEGATIVE Urine RBC (Auto) NEGATIVE NEGATIVE Urine RBC NONE /HPF Urine WBC 2-5 /HPF Urine Squamous Epithelial Cells 25-50 H /HPF Urine Crystals NONE /LPF Urine Bacteria LARGE H /HPF Urine Casts NONE /LPF Urine Mucus LARGE H /LPF Urine Culture Indicated NO White Blood Count 5.1 4.3-11.0 10^3/uL Red Blood Count 4.54 4.35-5.85 10^6/uL Hemoglobin 13.1 11.5-16.0 G/DL Hematocrit 38 35-52 % Mean Corpuscular Volume 85 80-99 FL Mean Corpuscular Hemoglobin 29 25-34 PG Mean Corpuscular Hemoglobin Concent 34 32-36 G/DL Red Cell Distribution Width 13.8 10.0-14.5 % Platelet Count 281 130-400 10^3/uL Mean Platelet Volume 9.3 7.4-10.4 FL Neutrophils (%) (Auto) 48 42-75 % Lymphocytes (%) (Auto) 39 12-44 % Monocytes (%) (Auto) 9 0-12 % Eosinophils (%) (Auto) 4 0-10 % Basophils (%) (Auto) 0 0-10 % Neutrophils # (Auto) 2.4 1.8-7.8 X 10^3 Lymphocytes # (Auto) 2.0 1.0-4.0 X 10^3 Monocytes # (Auto) 0.5 0.0-1.0 X 10^3 Eosinophils # (Auto) 0.2 0.0-0.3 10^3/uL Basophils # (Auto) 0.0 0.0-0.1 10^3/uL Sodium Level 138 135-145 MMOL/L Potassium Level 3.7 3.6-5.0 MMOL/L Chloride Level 105 98-107 MMOL/L Carbon Dioxide Level 20 L 21-32 MMOL/L Anion Gap 13 5-14 MMOL/L Blood Urea Nitrogen 7 7-18 MG/DL Creatinine 0.66 0.60-1.30 MG/DL Estimat Glomerular Filtration Rate > 60 BUN/Creatinine Ratio 11 Glucose Level 62 L 70-105 MG/DL Calcium Level 9.9 8.5-10.1 MG/DL My Orders Orders - TERRI BRYANT MD Ua Culture If Indicated (07/08/18 17:21) Cbc With Automated Diff (07/08/18 17:34) Hcg,Quantitative (07/08/18 17:34) Abo Rh Type (07/08/18 17:34) Basic Metabolic Panel (07/08/18 17:34) Vital Signs/I&O 07/08/18 17:15 Temp 97.6 Pulse 81 Resp 20 B/P (MAP) 97/60 (72) O2 Delivery Room Air Capillary Refill : Less Than 3 Seconds Blood Pressure Mean: 72 Progress Note : Progress Note Seen and evaluated. Labs and UA ordered. Bedside ultrasound by me. heart tone approximately 165. Approximately 8-3/7 by crown-rump length. Intrauterine noted. Monitor patient. Patient is O+. No indication for Ultram. I did discuss with her about threatened miscarriage and the need to find OB. Discharged home with return precautions. Patient verbalize understanding instructions and agreement with plan. Departure Impression Primary Impression: Threatened miscarriage Additional Impression: Nausea/vomiting in Disposition: HOME, SELF-CARE Condition: Improved Departure-Patient Inst. Decision time for Depature: 18:07 Referrals: ANGELA SAMS MD (PCP/Family) Primary Care Physician Patient Instructions: Nausea and Vomiting of (DC), Threatened Miscarriage (DC) Add. Discharge Instructions: All discharge instructions reviewed with patient and/or family. Voiced understanding. You need to establish with an OB doctor as soon as possible. Follow-up with that doctor this week. Rest tonight and drink plenty of fluids and eat a normal diet. You should rest often during her work today. Return for worse pain, fever, vomiting, weakness, bleeding greater than 2 pads per hour for more than 2 hours or other concerns as needed. TERRI BRYANT MD Jul 08, 2018 17:41
[2018-07-08 17:46] LABS: BACTERIA,URINE LARGE /HPF; SQUAMOUS EPITHELIAL CELL,UR 25-50 /HPF
[2018-07-08 17:58] LABS: BASOPHILS % (AUTO) 0 % (0-10); EOSINOPHILS # (AUTO) 0.2 10^3/uL (0.0-0.3); EOSINOPHILS % (AUTO) 4 % (0-10); HEMATOCRIT 38 % (35-52); HEMOGLOBIN 13.1 G/DL (11.5-16.0); LYMPHOCYTES % (AUTO) 39 % (12-44); MEAN CORPUSCULAR HEMOGLOBIN 29 PG (25-34); MEAN CORPUSCULAR HGB CONC 34 G/DL (32-36); MEAN CORPUSCULAR VOLUME 85 FL (80-99); MEAN PLATELET VOLUME 9.3 FL (7.4-10.4); MONOCYTES # (AUTO) 0.5 X 10^3 (0.0-1.0); MONOCYTES % (AUTO) 9 % (0-12); NEUTROPHILS # (AUTO) 2.4 X 10^3 (1.8-7.8); NEUTROPHILS % (AUTO) 48 % (42-75); PLATELET COUNT 281 10^3/uL (130-400); RED BLOOD COUNT 4.54 10^6/uL (4.35-5.85); RED CELL DISTRIBUTION WIDTH 13.8 % (10.0-14.5); WHITE BLOOD COUNT 5.1 10^3/uL (4.3-11.0)
--- OUTSIDE RECORDS SUMMARY | 2018-07-08 18:08 | XMS REPORT ---
Author Author EDMUND MAHONEY [facility] Address [address] [place] [address] Phone Unavailable Care Team Providers Care Computer Education Professor Name Role Phone EDMUND MAHONEY Unavailable Unavailable PROBLEMS Type Condition ICD9-CM Code SOA89-DC Code Onset Dates Condition Status SNOMED Code Problem Esophageal reflux 530.81 Active 437802820 Problem Underweight 783.22 Active 294619620 ALLERGIES Substance Reaction Event Type Date Status ZOFRAN Unknown Non Drug Allergy Aug, Active ENCOUNTERS Encounter Location Date Diagnosis [facility] [id number] [place] [phone] Aug, Encounter for dental exam and cleaning w/o abnormal findings Z01.20 [place] [id number] [place] [phone] Nov, [facility] [id number] [place] [phone] Nov, [facility] [id number] [place] [address] [phone] Mar, [facility] [id number] [place] [address] [phone] Mar, [facility] [id number] [place] [phone] Feb, [facility] [id number] [place] [phone] Oct, [facility] [id number] [place] [address] [phone] Oct, IMMUNIZATIONS No Known Immunizations SOCIAL HISTORY Never Assessed REASON FOR VISIT prophy/maggie PLAN OF CARE Activity Details Follow Up prn Reason:1 HOUR OPEN AND REPORT #19 OR #30 DR'S CHOICE VITAL SIGNS MEDICATIONS Medication Instructions Dosage Frequency Start Date End Date Duration Status Zofran ODT 8 mg 28 Mar, 2013 Not-Taking Prilosec 20 mg 1 capsule by Oral route 2 times per day Oct, Not-Taking Tylenol 325 mg Oct, Not-Taking RESULTS No Results PROCEDURES Procedure Date Ordered Result Body Site COMP ORAL EVALUATION - NEW/EST PT Aug 23, 2017 INTRAORL-PERIAPICAL 1 FILM [id number] Aug 23, 2017 PROPHYLAXIS - ADULT Aug 23, 2017 INTRAORL-PERIAPICAL EA ADD FILM Aug 23, 2017 INTRAORL-PERIAPICAL EA ADD FILM Aug 23, 2017 INTRAORL-PERIAPICAL EA ADD FILM Aug 23, 2017 INTRAORL-PERIAPICAL EA ADD FILM Aug 23, 2017 INTRAORL-PERIAPICAL EA ADD FILM Aug 23, 2017 INSTRUCTIONS MEDICATIONS ADMINISTERED No Known Medications MEDICAL (GENERAL) HISTORY Type Description Date Medical History 28 WEEKS
--- OUTSIDE RECORDS SUMMARY | 2018-07-08 18:08 | XMS REPORT | Clinical Summary ---
Author Author [facility] Organization [facility] Address Unknown Phone Unavailable Care Team Providers Care Senior Systems Administrator Name Role Phone Ele Lima RN Unavailable Unavailable Cordell Wise MD PCP Unavailable Emergency, Nurse RN Unavailable Unavailable Source Comments Some departments are not documenting in the electronic medical record. 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
--- OUTSIDE RECORDS SUMMARY | 2018-07-08 18:09 | XMS REPORT | Continuity of Care Document ---
Author Author [facility] Address Unknown Phone Unavailable Allergies Active Description Code Type Severity Reaction Onset Reported/Identified Relationship to Patient Clinical Status Yes acetaminophen [id number] Drug Allergy Severe N/A 01/01/2013 Yes ondansetron HCl [id number] Drug Allergy Moderate N/A 01/01/2013 Medications There is no data. Problems Date Dx Coded Attending Type Code [...] THE DGSTV SYS COMP 08/22/2015 CATHIE FINLEY MD Ot Z3A.34 34 WEEKS GESTATION OF 12/17/2016 MARIE ESPINOSA Ot N30.91 CYSTITIS, UNSPECIFIED WITH HEMATURIA 12/17/2016 MARIE ESPINOSA Ot R30.0 DYSURIA 12/20/2016 MARIE ESPINOSA Ot N30.91 CYSTITIS, UNSPECIFIED WITH HEMATURIA 12/20/2016 MARIE ESPINOSA Ot R30.0 DYSURIA 02/08/2017 SMITH DIAZ MD Ot N39.0 URINARY TRACT INFECTION, SITE NOT SPECIF 02/08/2017 SMITH DIAZ MD Ot R10.12 LEFT UPPER QUADRANT PAIN 02/08/2017 SMITH DIAZ MD Ot R19.7 DIARRHEA, UNSPECIFIED 02/10/2017 SMITH DIAZ MD Ot N39.0 URINARY TRACT INFECTION, SITE NOT SPECIF 02/10/2017 SMITH DIAZ MD Ot R10.12 LEFT UPPER QUADRANT PAIN 02/10/2017 SMITH DIAZ MD Ot R19.7 DIARRHEA, UNSPECIFIED 05/24/2017 MARIE ESPINOSA Ot N30.91 CYSTITIS, UNSPECIFIED WITH HEMATURIA 05/24/2017 MARIE ESPINOSA Ot R30.0 DYSURIA 06/27/2017 SMITH DIAZ MD Ot F32.9 MAJOR DEPRESSIVE DISORDER, SINGLE EPISOD 06/27/2017 SMITH DIAZ MD Ot F90.9 ATTENTION-DEFICIT HYPERACTIVITY DISORDER 06/27/2017 SMITH DIAZ MD Ot J45.909 UNSPECIFIED ASTHMA, UNCOMPLICATED 06/27/2017 SMITH DIAZ MD Ot K21.9 GASTRO-ESOPHAGEAL REFLUX DISEASE WITHOUT 06/27/2017 SMITH DIAZ MD Ot M54.5 LOW BACK PAIN 06/27/2017 SMITH DIAZ MD Ot O23.42 UNSP INFCT OF URINARY TRACT IN 06/27/2017 SMITH DIAZ MD Ot O99.342 OTH MENTAL DISORDERS COMP , SEC 06/27/2017 SMITH DIAZ MD Ot O99.512 DISEASES OF THE RESP SYS COMP , 06/27/2017 SMITH DIAZ MD Ot O99.611 DISEASES OF THE DGSTV SYS COMP 06/27/2017 SMITH DIAZ MD Ot Z3A.19 19 WEEKS GESTATION OF 06/27/2017 SMITH DIAZ MD Ot Z87.11 PERSONAL HISTORY OF PEPTIC ULCER DISEASE 06/27/2017 EMILY GOLDMAN, SMITH Batista Ot Z90.89 ACQUIRED ABSENCE OF OTHER ORGANS 06/27/2017 SHRUTHI POSEY MD, Ot O47.02 FALSE LABOR BEFORE 37 COMPLETED WEEKS OF 06/27/2017 SHRUTHI POSEY MD Ot Z3A.19 19 WEEKS GESTATION OF 08/07/2017 SHRUTHI POSEY MD Ot O47.02 FALSE LABOR BEFORE 37 COMPLETED WEEKS OF 08/07/2017 SHRUTHI POSEY MD Nadia Ot Z3A.25 25 WEEKS GESTATION OF 08/30/2017 SHRUTHI POSYE MD Nadia Ot O47.03 FALSE LABOR BEFORE 37 COMPLETED WEEKS OF 08/30/2017 SHRUTHI POSEY MD Ot Z3A.28 28 WEEKS GESTATION OF 09/03/2017 TATY GOLDMAN SHRUTHI Nadia Ot O47.03 FALSE LABOR BEFORE 37 COMPLETED WEEKS OF 09/03/2017 SHRUTHI POSEY MD, Ot Z3A.28 28 WEEKS GESTATION OF 02/13/2018 AMARA ORDONEZ Ot R10.9 UNSPECIFIED ABDOMINAL PAIN 02/14/2018 AMARA ORDONEZ Ot R10.9 UNSPECIFIED ABDOMINAL PAIN 02/19/2018 AMARA ORDONEZ Ot R10.9 UNSPECIFIED ABDOMINAL PAIN Procedures Code Description [place] [address] URINE TEST (IN- HOUSE) 11/07/2012 45647 UA W/ CULTURE IF INDICATED 11/07/2012 Results Test Result Range Complete urinalysis with reflex to culture - 12/17/16 19:44 Urine color determination YELLOW NRG Urine clarity determination SLIGHTLY CLOUDY NRG Urine pH measurement by test strip 6 5-9 Specific gravity of urine by test strip 1.025 1.016- 1.022 Urine protein assay by test strip, semi-quantitative [...] culture - 12/17/16 19:44 Bacterial urine culture [id number] NRG COLONY COUNT 10,000/ML - 100,000/ML NRG FTX;REPORTABLE SENSITIVITY REPORTED 12/19/16 7:45 NRG FREE TEXT ENTRY 2 PLUS, MIXED GRAM POSITIVES <10,000/ML NRG Bacterial susceptibility panel - 12/17/16 19:44 Gentamicin susceptibility test by minimum inhibitory concentration < = NRG Trimethoprim/sulfamethoxazole susceptibility test by minimum inhibitoryconcentration <= NRG Ampicillin susceptibility test by minimum inhibitory concentration 4 NRG Tobramycin susceptibility test by minimum inhibitory concentration < = NRG Cefazolin susceptibility test by minimum inhibitory concentration < = NRG Ceftriaxone susceptibility test by minimum inhibitory concentration <= NRG Ampicillin/sulbactam susceptibility test by minimum inhibitory concentration <= NRG Piperacillin/tazobactam susceptibility test by minimum inhibitory concentration <= NRG Ciprofloxacin susceptibility test by minimum inhibitory concentration <= NRG Meropenem susceptibility test by minimum inhibitory concentration < = NRG Nitrofurantoin susceptibility test by minimum inhibitory concentration <= NRG Aztreonam susceptibility test by minimum inhibitory concentration < = NRG Extended spectrum beta lactamase (ESBL) producing bacteria susceptibility test by minimum inhibitory concentration - NRG Complete urinalysis with reflex to culture - 02/08/17 19:30 Urine color determination YELLOW NRG Urine clarity determination SLIGHTLY CLOUDY NRG Urine pH measurement by test strip 5 5-9 Specific gravity of urine by test strip 1.030 1.016- 1.022 Urine protein assay by test strip, semi-quantitative 2+ NEGATIVE Urine glucose detection by automated test strip NEGATIVE NEGATIVE Erythrocytes detection in urine sediment by light microscopy 1+ NEGATIVE Urine ketones detection by automated test strip NEGATIVE NEGATIVE Urine nitrite detection by test strip NEGATIVE NEGATIVE Urine total bilirubin detection by test strip NEGATIVE NEGATIVE Urine urobilinogen measurement by automated test strip (mass/volume) 1 mg/dL NORMAL Urine leukocyte esterase detection by dipstick 3+ NEGATIVE Automated urine sediment erythrocyte count by microscopy (number/high power field) [HPF] NRG Automated urine sediment leukocyte count by microscopy (number/high power field ) [HPF] NRG Bacteria detection in urine sediment by light microscopy MODERATE NRG Squamous epithelial cells detection in urine sediment by light microscopy >50 NRG Crystals detection in urine sediment by light microscopy NONE NRG Casts detection in urine sediment by light microscopy NONE NRG Mucus detection in urine sediment by light microscopy SMALL NRG Complete urinalysis with reflex to culture YES NRG Bacterial urine culture - 02/08/17 19:30 Bacterial urine culture [id number] NRG COLONY COUNT 10,000/ML - 100,000/ML NRG FREE TEXT ENTRY 3 MIXED GRAM POSITIVE NENA NRG Complete urinalysis with reflex to culture - 06/27/17 12:00 Urine color determination YELLOW NRG Urine clarity determination CLEAR NRG Urine pH measurement by test strip 6 5-9 Specific gravity of urine by test strip 1.010 1.016- 1.022 Urine protein assay by test strip, semi-quantitative NEGATIVE NEGATIVE Urine glucose detection by automated test strip NEGATIVE NEGATIVE Erythrocytes detection in urine sediment by light microscopy NEGATIVE NEGATIVE Urine ketones detection by automated test strip NEGATIVE NEGATIVE Urine nitrite detection by test strip NEGATIVE NEGATIVE Urine total bilirubin detection by test strip NEGATIVE NEGATIVE Urine urobilinogen measurement by automated test strip (mass/volume) NORMAL NORMAL Urine leukocyte esterase detection by dipstick 2+ NEGATIVE Automated urine sediment erythrocyte count by microscopy (number/high power field) NONE NRG Automated urine sediment leukocyte count by microscopy (number/high power field ) [HPF] NRG Bacteria detection in urine sediment by light microscopy TRACE NRG Squamous epithelial cells detection in urine sediment by light microscopy 10-25 NRG Crystals detection in urine sediment by light microscopy NONE NRG Casts detection in urine sediment by light microscopy NONE NRG Mucus detection in urine sediment by light microscopy NEGATIVE NRG Complete urinalysis with reflex to culture YES NRG Bacterial urine culture - 06/27/17 12:00 URINE CULTURE RESULTS UNLESS REQUESTED NRG Encounters ACCT No. Visit Date/Time Discharge Status Pt. Type Provider Facility Loc./Unit Complaint [id number] 11/07/2012 10:30:00 11/07/2012 23:59:59 CLS Outpatient MAITE FIORE MD, JUAN [facility] 09/19/2014 17:47:35 ACT Document Registration [id number] 02/13/2018 19:26:00 02/13/2018 19:40:00 DIS Emergency AMARA ORDONEZ Via [facility] ER ABD PAIN [id number] 08/30/2017 12:27:00 08/30/2017 14:20:00 DIS Outpatient SHRUTHI POSEY MD [facility] [id number] 08/07/2017 13:45:00 08/07/2017 14:45:00 DIS Outpatient SHRUTHI POSEY MD [facility] INCREASED PAIN, VAGINAL DISCHARGE [id number] 06/27/2017 13:45:00 06/27/2017 14:55:00 DIS Outpatient SHRUTHI POSEY MD Via [facility] ABD CRAMPING,N/V [id number] 06/27/2017 10:56:00 06/27/2017 13:44:00 DIS Emergency SMITH DIAZ MD Via [facility] ER ABD CRAMPING, 19 WKS 2 DAYS PG [id number] 02/08/2017 19:08:00 02/08/2017 20:03:00 DIS Emergency SMITH DIAZ MD Via [facility] ER UPPER ABDOMINAL PAIN [id number] 12/17/2016 19:09:00 12/17/2016 21:18:00 DIS Emergency MARIE ESPINOSA Via [facility] ER POSS UTI [id number] 08/21/2015 22:52:00 08/22/2015 11:00:00 DIS Outpatient CATHIE FINLEY MD [facility] ABD [facility] [id number] 09/17/2014 09:39:00 09/17/2014 11:04:00 DIS Emergency TERRI BRYANT MD Via [facility] ER VAG PAIN/DISCHARGE [id number] 10/06/2013 22:20:00 10/06/2013 23:32:00 DIS Outpatient RADHA BLACKMON DO [facility] LEAKAGE, ABD PAIN [id number] 01/01/2013 21:34:00 01/02/2013 02:10:00 DIS Emergency EMILY GOLDMAN, SMITH Zavala [facility] ER ABD PAIN
[2018-07-08 18:24] LABS: BUN/CREATININE RATIO 11; CALCIUM 9.9 MG/DL (8.5-10.1); CARBON DIOXIDE 20 MMOL/L (21-32); CHLORIDE 105 MMOL/L (98-107); CREATININE SERUM 0.66 MG/DL (0.60-1.30); GFR ESTIMATED > 60; GLUCOSE 62 MG/DL (70-105); POTASSIUM 3.7 MMOL/L (3.6-5.0); SODIUM 138 MMOL/L (135-145)
[2018-07-08 18:39] VITALS: BP 94/55
== END 2018-07-08 18:39 | disposition home or self-care (01) ==
LOC: EDUNIT# 17:00 → ER 17:01
DX: O20.0 Threatened abortion (principal); O99.511 Diseases of the respiratory system complicating pregnancy, first trimester; J45.909 Unspecified asthma, uncomplicated; O99.611 Diseases of the digestive system complicating pregnancy, first trimester; K21.9 Gastro-esophageal reflux disease without esophagitis; O99.341 Other mental disorders complicating pregnancy, first trimester; F90.9 Attention-deficit hyperactivity disorder, unspecified type; F32.9 Major depressive disorder, single episode, unspecified; Z87.19 Personal history of other diseases of the digestive system; Z87.448 Personal history of other diseases of urinary system; Z90.89 Acquired absence of other organs; Z77.22 Contact with and (suspected) exposure to environmental tobacco smoke (acute) (chronic); Z3A.08 8 weeks gestation of pregnancy; Z88.8 Allergy status to other drugs, medicaments and biological substances
CPT/HCPCS: 36415; 80048; 81000; 84702; 85025; 86900; 86901

== ENCOUNTER 2018-08-25 13:58 | Emergency (ER) | payer MEDICAID ==
[~2018-08-25] VITALS: Ht 157.5 cm; Wt 47.2 kg
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
--- NOTE | 2018-08-25 14:27 | ED Integumentary General ---
General Chief Complaint: Skin/Wound Problems Stated Complaint: 17 WKS PREG/L SIDE SKIN BURNING/HX OF SHINGLES Nursing Triage Note: PT AMBULATED TO FT1 WITHOUT INCIDENT. PT COMPLAINS OF ITCHING, SKIN BURNING TO WHOLE BODY. PT STATES IT FEELS LIKE WHEN SHE HAD SHINGLES WHEN SHE WAS PREVIOUSLY . Source: patient Exam Limitations: no limitations History of Present Illness Date Seen by Provider: Aug 25, 2018 Time Seen by Provider: 14:24 Initial Comments To ER with reports of itching and burning to her skin. This been present for one week and she sees her primary care provider Dr. Katlin Sams this . She is 17 weeks gestation and this itching and discomfort reminds her of when she had shingles. She has tried lotion assuming this to be dry skin without relief. She then assume maybe it was an allergic reaction so she took a Benadryl, again without improvement. This affects the lateral left thigh up the lateral torso, upper back to the scapula across her back to the other scapula down the right torso and down the right leg. She denies noticing any rash or skin lesions at these locations. She has also had some nausea Timing/Duration: just prior to arrival, constant Severity: moderate Location: torso, extremities Possible Cause: no cause identified Associated Symptoms: No blisters, No change in skin texture, No hives Allergies and Home Medications Allergies Coded Allergies: acetaminophen (Verified Allergy, Severe, 08/25/18) ondansetron HCl (Verified Allergy, Intermediate, 08/25/18) Home Medications Qbd110/Iron Fumarate/FA/Dss 1 Each Tablet, 1 EACH PO DAILY, (Reported) Ranitidine HCl 75 Mg Tablet, 75 MG PO BID Prescribed by: NABILA SUAREZ on 08/30/17 1415 Patient Home Medication List Home Medication List Reviewed: Yes Review of Systems Review of Systems Constitutional: see HPI EENTM: see HPI Respiratory: no symptoms reported Cardiovascular: no symptoms reported Genitourinary: no symptoms reported Musculoskeletal: no symptoms reported Skin: no symptoms reported Psychiatric/Neurological: No Symptoms Reported Endocrine: No Symptoms Reported Hematologic/Lymphatic: No Symptoms Reported (all) Past Tuemmnv-Ggwwnu-Ieelxn Hx Patient Social History Alcohol Use: Denies Use Recreational Drug Use: No Smoking Status: Former Smoker Type Used: Cigarettes 2nd Hand Smoke Exposure: Yes Recent Foreign Travel: No Contact w/Someone Who Travel: No Recent Infectious Disease Expo: No Recent Hopitalizations: No Physical Abuse: No Sexual Abuse: No Seasonal Allergies Seasonal Allergies: Yes Past Medical History Surgeries: Yes (wisdom teeth) Gallbladder, Tonsillectomy Respiratory: Yes Asthma Cardiac: No Neurological: No Reproductive Disorders: Yes (irregular menstrual cycles) Female Reproductive Disorders: Menstrual Problems, Endometriosis Genitourinary: No Gastrointestinal: Yes Gastroesophageal Reflux, Ulcer Musculoskeletal: No Endocrine: No HEENT: No Cancer: No Psychosocial: Yes ADD/ADHD, Depression Integumentary: No Blood Disorders: No Family Medical History No Pertinent Family Hx Physical Exam Vital Signs Vital Signs - First Documented 08/25/18 14:02 Temp 98.7 Pulse 95 Resp 16 B/P (MAP) 103/59 (74) Pulse Ox 99 Capillary Refill : Less Than 3 Seconds General Appearance: WD/WN, no apparent distress HEENT: PERRL/EOMI, normal ENT inspection Neck: non-tender, full range of motion Respiratory: lungs clear, normal breath sounds, no respiratory distress, no accessory muscle use Gastrointestinal: normal bowel sounds, non tender, soft Neurologic/Psychiatric: alert, normal mood/affect, oriented x 3 Skin: normal color, warm/dry, other (No rash or skin lesions seen) Progress/Results/Core Measures Results/Orders Lab Results Laboratory Tests Test 08/25/18 15:02 Range/Units White Blood Count 6.4 4.3-11.0 10^3/uL Red Blood Count 4.31 L 4.35-5.85 10^6/uL Hemoglobin 12.7 11.5-16.0 G/DL Hematocrit 38 35-52 % Mean Corpuscular Volume 88 80-99 FL Mean Corpuscular Hemoglobin 30 25-34 PG Mean Corpuscular Hemoglobin Concent 34 32-36 G/DL Red Cell Distribution Width 15.0 H 10.0-14.5 % Platelet Count 289 130-400 10^3/uL Mean Platelet Volume 9.3 7.4-10.4 FL Neutrophils (%) (Auto) 64 42-75 % Lymphocytes (%) (Auto) 26 12-44 % Monocytes (%) (Auto) 7 0-12 % Eosinophils (%) (Auto) 3 0-10 % Basophils (%) (Auto) 1 0-10 % Neutrophils # (Auto) 4.1 1.8-7.8 X 10^3 Lymphocytes # (Auto) 1.7 1.0-4.0 X 10^3 Monocytes # (Auto) 0.4 0.0-1.0 X 10^3 Eosinophils # (Auto) 0.2 0.0-0.3 10^3/uL Basophils # (Auto) 0.0 0.0-0.1 10^3/uL Sodium Level 137 135-145 MMOL/L Potassium Level 4.4 3.6-5.0 MMOL/L Chloride Level 106 98-107 MMOL/L Carbon Dioxide Level 20 L 21-32 MMOL/L Anion Gap 11 5-14 MMOL/L Blood Urea Nitrogen 7 7-18 MG/DL Creatinine 0.64 0.60-1.30 MG/DL Estimat Glomerular Filtration Rate > 60 BUN/Creatinine Ratio 11 Glucose Level 81 70-105 MG/DL Calcium Level 9.7 8.5-10.1 MG/DL My Orders Orders - LIZZETTE CABRERA APRN Promethazine Tablet (Phenergan Tablet) (08/25/18 14:30) Cbc With Automated Diff (08/25/18 14:27) Basic Metabolic Panel (08/25/18 14:27) Aspartate Amino Transferase (08/25/18 15:35) Alanine Aminotransferase (08/25/18 15:35) Bilirubin,Total (08/25/18 15:35) Alkaline Phosphatase (08/25/18 15:35) Medications Given in ED Current Medications Medications Dose Ordered Sig/Maria Dolores Route Start Time Stop Time Status Last Admin Dose Admin Promethazine HCl 25 mg ONCE ONCE PO 08/25/18 14:30 08/25/18 14:31 DC 08/25/18 14:26 25 MG Vital Signs/I&O 08/25/18 14:02 Temp 98.7 Pulse 95 Resp 16 B/P (MAP) 103/59 (74) Pulse Ox 99 Blood Pressure Mean: 74 Departure Impression Primary Impression: Pruritus Additional Impression: Nausea and vomiting during Disposition: 01 HOME, SELF-CARE Condition: Stable Departure-Patient Inst. Decision time for Depature: 15:07 Referrals: ANGELA SAMS MD (PCP/Family) Primary Care Physician Patient Instructions: Itchy Skin, Nausea and Vomiting of Add. Discharge Instructions: 1. Continue to use a moisturizing lotion such as Eucerin cream. Take medication as directed. Follow-up with your regular doctor later this week for recheck. All discharge instructions reviewed with patient and/or family. Voiced understanding. Scripts Promethazine HCl (Promethazine Tablet) 25 Mg Tablet 25 MG PO Q8H PRN for NAUSEA/VOMITING, #14 TAB Prov: LIZZETTE CABRERA APRN 08/25/18 LIZZETTE CABRERA APRN Aug 25, 2018 14:27
[2018-08-25] MEDS ORDERED: PROMETHAZINE 25 MG (PHENERGAN) TAB PO ONE (14:30)
[2018-08-25 15:18] LABS: BASOPHILS % (AUTO) 1 % (0-10); EOSINOPHILS # (AUTO) 0.2 10^3/uL (0.0-0.3); EOSINOPHILS % (AUTO) 3 % (0-10); HEMATOCRIT 38 % (35-52); HEMOGLOBIN 12.7 G/DL (11.5-16.0); LYMPHOCYTES # (AUTO) 1.7 X 10^3 (1.0-4.0); LYMPHOCYTES % (AUTO) 26 % (12-44); MEAN CORPUSCULAR HEMOGLOBIN 30 PG (25-34); MEAN CORPUSCULAR HGB CONC 34 G/DL (32-36); MEAN CORPUSCULAR VOLUME 88 FL (80-99); MEAN PLATELET VOLUME 9.3 FL (7.4-10.4); MONOCYTES # (AUTO) 0.4 X 10^3 (0.0-1.0); MONOCYTES % (AUTO) 7 % (0-12); NEUTROPHILS # (AUTO) 4.1 X 10^3 (1.8-7.8); NEUTROPHILS % (AUTO) 64 % (42-75); PLATELET COUNT 289 10^3/uL (130-400); RED BLOOD COUNT 4.31 10^6/uL (4.35-5.85); WHITE BLOOD COUNT 6.4 10^3/uL (4.3-11.0)
[2018-08-25 15:34] LABS: BUN/CREATININE RATIO 11; CALCIUM 9.7 MG/DL (8.5-10.1); CARBON DIOXIDE 20 MMOL/L (21-32); CHLORIDE 106 MMOL/L (98-107); CREATININE SERUM 0.64 MG/DL (0.60-1.30); GFR ESTIMATED > 60; GLUCOSE 81 MG/DL (70-105); POTASSIUM 4.4 MMOL/L (3.6-5.0); SODIUM 137 MMOL/L (135-145)
[2018-08-25] MEDS ORDERED: PROM25TA14 PO (15:40)
[2018-08-25 15:42] VITALS: BP 103/59
[2018-08-25 15:57] LABS: BILIRUBIN,TOTAL 0.4 MG/DL (0.1-1.0)
== END 2018-08-25 15:42 | disposition home or self-care (01) ==
LOC: EDUNIT# 13:58 → ER 14:01
DX: O99.712 Diseases of the skin and subcutaneous tissue complicating pregnancy, second trimester (principal); L29.9 Pruritus, unspecified; O21.9 Vomiting of pregnancy, unspecified; O99.612 Diseases of the digestive system complicating pregnancy, second trimester; K21.9 Gastro-esophageal reflux disease without esophagitis; O99.342 Other mental disorders complicating pregnancy, second trimester; F98.8 Other specified behavioral and emotional disorders with onset usually occurring in childhood and adolescence; F32.9 Major depressive disorder, single episode, unspecified; F90.9 Attention-deficit hyperactivity disorder, unspecified type; O99.512 Diseases of the respiratory system complicating pregnancy, second trimester; J45.909 Unspecified asthma, uncomplicated; Z3A.17 17 weeks gestation of pregnancy; Z88.8 Allergy status to other drugs, medicaments and biological substances; Z87.448 Personal history of other diseases of urinary system; Z88.6 Allergy status to analgesic agent; Z87.19 Personal history of other diseases of the digestive system; Z87.891 Personal history of nicotine dependence; Z90.89 Acquired absence of other organs
CPT/HCPCS: 36415; 80048; 82247; 84075; 84450; 84460; 85025; 99283

== ENCOUNTER 2019-07-01 19:35 | Emergency (ER) | payer MEDICAID ==
[~2019-07-01] VITALS: Ht 157.5 cm; Wt 45.4 kg
[~2019-07-01 19:35] MED LIST changes: -OMEP20CA12 PO; +OMEP20CA13 PO; +RANI-324 PO; -RANI75TA21 PO
[2019-07-01 20:46] LABS: AMORPHOUS SEDIMENT,UR MOD AMOR PHOSPHATE /LPF; BILIRUBIN,URINE NEGATIVE (NEGATIVE); CLARITY,URINE CLOUDY; COLOR,URINE YELLOW; GLUCOSE, URINE (UA) NEGATIVE (NEGATIVE); KETONES,URINE NEGATIVE (NEGATIVE); LEUKOCYTE ESTERASE ,URINE NEGATIVE (NEGATIVE); NITRITE,URINE NEGATIVE (NEGATIVE); PROTEIN,URINE NEGATIVE (NEGATIVE); WBC,URINE RARE /HPF
[2019-07-01] MEDS ORDERED: PROM25TA14 PO (21:24)
--- NOTE | 2019-07-01 21:25 | ED GI ---
General Chief Complaint: Abdominal/GI Problems Stated Complaint: VOMITTING Nursing Triage Note: pt states she started vomiting yesterday, pt has a bad tooth that is supposed to be extracted Sepsis Screen: No Definite Risk Source of Information: Patient History of Present Illness Date Seen by Provider: Jul 01, 2019 Time Seen by Provider: 20:41 Initial Comments 24 yo F presenting with complaints of N/V that has been off and on for over a week. She has been late on her period as well. She was concerned that she might be . She has been having some cramping pain in her left lower quadrant area. She has not had any vaginal discharge. She has no pain with urination. She has had no fever or chills. She also has had a bad tooth. She has had some ill contacts. She denies any cough or congestion. Allergies and Home Medications Allergies Coded Allergies: acetaminophen (Verified Allergy, Severe, 08/25/18) ondansetron HCl (Verified Allergy, Intermediate, 08/25/18) Home Medications Hon921/Iron Fumarate/FA/Dss 1 Each Tablet, 1 EACH PO DAILY, (Reported) Promethazine HCl 25 Mg Tablet, 25 MG PO Q8H PRN for NAUSEA/VOMITING Prescribed by: GIANCARLO BENTLEY on 07/01/194 Ranitidine HCl 75 Mg Tablet, 75 MG PO BID Prescribed by: NABILA SUAREZ on 08/30/17 1415 Patient Home Medication List Home Medication List Reviewed: Yes Review of Systems Review of Systems Constitutional: No chills, No fever EENTM: No Symptoms Reported Respiratory: No Symptoms Reported Cardiovascular: No Symptoms Reported Gastrointestinal: See HPI Genitourinary: See HPI Musculoskeletal: no symptoms reported Skin: no symptoms reported Psychiatric/Neurological: No Symptoms Reported Endocrine: No Symptoms Reported Past Vhnsdnn-Hjhyre-Smcnzw Hx Past Med/Social Hx: Reviewed Nursing Past Med/Soc Hx Patient Social History Alcohol Use: Denies Use Recreational Drug Use: No Smoking Status: Current Everyday Smoker Type Used: Cigarettes 2nd Hand Smoke Exposure: Yes Recent Foreign Travel: No Contact w/Someone Who Travel: No Recent Infectious Disease Expo: No Recent Hopitalizations: No Physical Abuse: No Sexual Abuse: No Mistreated: No Fear: No Seasonal Allergies Seasonal Allergies: Yes Past Medical History Surgeries: Yes (wisdom teeth) Gallbladder, Tonsillectomy Respiratory: Yes Asthma Cardiac: No Neurological: No Reproductive Disorders: Yes (irregular menstrual cycles) Female Reproductive Disorders: Menstrual Problems, Endometriosis Genitourinary: No Gastrointestinal: Yes Gastroesophageal Reflux, Ulcer Musculoskeletal: No Endocrine: No HEENT: No Cancer: No Psychosocial: Yes ADD/ADHD, Depression Integumentary: No Blood Disorders: No Family Medical History No Pertinent Family Hx Physical Exam Vital Signs Vital Signs - First Documented 07/01/19 20:14 Temp 36.2 Pulse 94 Resp 20 B/P (MAP) 133/60 (84) Pulse Ox 100 O2 Delivery Room Air Capillary Refill : Less Than 3 Seconds Height/Weight/BMI Height: 5'2.00" Weight: 104lbs. 4.0oz. [id number]; 18.00 BMI Method:Stated General Appearance: WD/WN, no apparent distress Respiratory: chest non-tender, lungs clear, normal breath sounds, no respirat ory distress, no accessory muscle use Cardiovascular: normal peripheral pulses, regular rate, rhythm Gastrointestinal: normal bowel sounds, soft, no pulsatile mass, tenderness (mild pain to left lower quadrant) Extremities: normal range of motion, no pedal edema, normal capillary refill Neurologic/Psychiatric: alert, normal mood/affect, oriented x 3 Skin: normal color, warm/dry Progress/Results/Core Measures Results/Orders Lab Results Laboratory Tests Test 07/01/19 20:19 Range/Units Urine Color YELLOW Urine Clarity CLOUDY Urine pH 8.0 5-9 Urine Specific [place] 1.015 L 1.016-1.022 Urine Protein NEGATIVE NEGATIVE Urine Glucose (UA) NEGATIVE NEGATIVE Urine Ketones NEGATIVE NEGATIVE Urine Nitrite NEGATIVE NEGATIVE Urine Bilirubin NEGATIVE NEGATIVE Urine Urobilinogen 0.2 < = 1.0 MG/DL Urine Leukocyte Esterase NEGATIVE NEGATIVE Urine RBC (Auto) 1+ H NEGATIVE Urine RBC 2-5 H /HPF Urine WBC RARE /HPF Urine Squamous Epithelial Cells 5-10 /HPF Urine Crystals PRESENT H /LPF Urine Amorphous Sediment MOD LESA PHOSPHATE H /LPF Urine Bacteria NONE /HPF Urine Casts NONE /LPF Urine Mucus NEGATIVE /LPF Urine Culture Indicated NO Urine Test NEGATIVE NEGATIVE My Orders Orders - GIANCARLO BENTLEY MD Ua Culture If Indicated (07/01/19 20:19) Hcg,Qualitative Urine (07/01/19 20:19) Vital Signs/I&O 07/01/19 07/01/19 20:14 21:45 Temp 36.2 36.3 Pulse 94 97 Resp 20 20 B/P (MAP) 133/60 (84) 106/63 Pulse Ox 100 98 O2 Delivery Room Air Room Air Blood Pressure Mean: 84 POS Progress Progress Note : Progress Note Check urine and . These did not show any acute signs of infection or . She has a trace amount of blood but negative . Pt refused to have blood work or other testing. Will refill Phenergan and have her check back with primary provider for continued concerns or further problems. Departure Impression Primary Impression: Nausea and vomiting Qualified Codes: R11.14 - Bilious vomiting Additional Impressions: Pelvic pain in female Irregular menses Disposition: HOME, SELF-CARE Condition: Stable Departure-Patient Inst. Decision time for Depature: 21:22 Referrals: SELFALEJANDRA MD (PCP/Family) Primary Care Physician Patient Instructions: Nausea and Vomiting, Adult (DC), Acute Pelvic Pain (DC), Absent or Irregular Periods Add. Discharge Instructions: Try to stay well hydrated and get plenty of rest Follow up with clinic for continued concerns and if not improving or having more problems All discharge instructions reviewed with patient and/or family. Voiced understanding. Scripts Promethazine HCl (Promethazine Tablet) 25 Mg Tablet 25 MG PO Q8H PRN for NAUSEA/VOMITING, #14 TAB Prov: GIANCARLO BENTLEY MD 07/01/19 Work/School Note: Work Release Form Date Seen in the Emergency Department: Jul 01, 2019 Return to Work: Jul 03, 2019 Restrictions: Return-No Vomiting(24hrs) GIANCARLO BENTLEY MD Jul 01, 2019 21:25 POS
[2019-07-01 21:45] VITALS: BP 106/63
== END 2019-07-01 21:40 | disposition home or self-care (01) ==
LOC: EDUNIT# 19:35 → ER FS 19:36
DX: R11.2 Nausea with vomiting, unspecified (principal); R10.2 Pelvic and perineal pain; N92.6 Irregular menstruation, unspecified; J45.909 Unspecified asthma, uncomplicated; K21.9 Gastro-esophageal reflux disease without esophagitis; F90.9 Attention-deficit hyperactivity disorder, unspecified type; F32.9 Major depressive disorder, single episode, unspecified; F17.210 Nicotine dependence, cigarettes, uncomplicated; Z90.89 Acquired absence of other organs; Z88.6 Allergy status to analgesic agent; Z88.8 Allergy status to other drugs, medicaments and biological substances
CPT/HCPCS: 81000; 84703; 99282

== ENCOUNTER 2019-07-17 18:13 | Emergency (ER) | payer MEDICAID ==
[~2019-07-17] VITALS: Ht 157 cm; Wt 52.0 kg
[~2019-07-17 18:13] MED LIST changes: +OMEP-280 PO; -OMEP20CA13 PO; -RANI-515 PO; +RANI-609 PO
--- NOTE | 2019-07-17 19:10 | ED EENT ---
History of Present Illness General Chief Complaint: Dental Problems/Pain Stated Complaint: MOUTH PAIN Nursing Triage Note: PT REPORTS SHE HAD A TOOTH PULLED 3 DAYS AGO ON THE LOWER LEFT SIDE DUE TO A LARGE CAVITY. SHE REPORTS SHE HAS NOT SMOKED OR DRANK OUT OF A STRAW PER INSTRUCTIONS. SHE REPORTS SHE HAS BEEN TAKING [id number] MG OF IBUPROFEN WITH THE LAST DOSE AT 1600 TODAY WITH NO RELIEF. SHE RATES HER PAIN A 10/10 AND STATES "EVEN THE SALIVA HURTS MY GUMS". PT HAS NOT TRIED TO CONTACT DR. STROUD FROM [facility] FOR FURTHER INSTRUCTIONS ON CARE OF THE EXTRACTION SINCE SHE HAS BEEN EXPERIENCING PAIN. Source: patient History of Present Illness Date Seen by Provider: Jul 17, 2019 Time Seen by Provider: 19:20 Initial Comments 24-year-old female presenting with complaints of pain to the left jaw where she had a tooth extraction 3 days ago. She states that she has been taking ibuprofen up to 12 and 1400 mg at a time and still having pain. She has some swelling to her gums around the area where the tooth was pulled. She denies any fever or chills. She has not check back with the dentist but with her continued pain and come here to the emergency department tonight. She felt like the pain was g etting worse so she was concerned about possible infection. She has not been having any bleeding from the site. Allergies and Home Medications Allergies Coded Allergies: acetaminophen (Verified Allergy, Severe, 08/25/18) ondansetron HCl (Verified Allergy, Intermediate, 08/25/18) Home Medications Amoxicillin 500 Mg Capsule, 500 MG PO TID Prescribed by: GIANCARLO BENTLEY on 07/17/191936 Oxycodone Hcl 5 Mg Tab, 5 MG PO Q4H PRN for PAIN-SEVERE (8-10) Prescribed by: GIANCARLO BENTLEY on 07/17/191936 Jtq560/Iron Fumarate/FA/Dss 1 Each Tablet, 1 EACH PO DAILY, (Reported) Promethazine HCl 25 Mg Tablet, 25 MG PO Q8H PRN for NAUSEA/VOMITING Prescribed by: GIANCARLO BENTLEY on 07/01/192123 Ranitidine HCl 75 Mg Tablet, 75 MG PO BID Prescribed by: NABILA SUAREZ on 08/30/17 1415 Patient Home Medication List Home Medication List Reviewed: Yes Review of Systems Review of Systems Constitutional: No chills, No fever Eyes: No Symptoms Reported Ears: No Symptoms Reported Nose: no symptoms reported Mouth: see HPI, pain, swelling; denies bloody discharge, denies purulent discharge, denies serosanguinous discharge Throat: denies swelling; painful swallowing Respiratory: no symptoms reported Cardiovascular: no symptoms reported Gastrointestinal: no symptoms reported Musculoskeletal: no symptoms reported Skin: no symptoms reported Past Rjffztl-Seuevl-Ywojnw Hx Past Med/Social Hx: Reviewed Nursing Past Med/Soc Hx Patient Social History Alcohol Use: Denies Use Recreational Drug Use: No Smoking Status: Unknown if Ever Smoked Type Used: Cigarettes 2nd Hand Smoke Exposure: Yes Recent Foreign Travel: No Contact w/Someone Who Travel: No Recent Infectious Disease Expo: No Recent Hopitalizations: No Physical Abuse: No Sexual Abuse: No Mistreated: No Fear: No Seasonal Allergies Seasonal Allergies: Yes Past Medical History Surgeries: Yes (wisdom teeth) Gallbladder, Tonsillectomy Respiratory: Yes Asthma Cardiac: No Neurological: No Reproductive Disorders: Yes (irregular menstrual cycles) Female Reproductive Disorders: Menstrual Problems, Endometriosis Genitourinary: No Gastrointestinal: Yes Gastroesophageal Reflux, Ulcer Musculoskeletal: No Endocrine: No HEENT: No Cancer: No Psychosocial: Yes ADD/ADHD, Depression Integumentary: No Blood Disorders: No Family Medical History No Pertinent Family Hx Physical Exam Vital Signs Vital Signs - First Documented 07/17/19 18:36 Temp 36.4 Pulse 96 Resp 18 B/P (MAP) 113/66 (82) Pulse Ox 98 O2 Delivery Room Air Height, Weight, BMI Height: 5'2.00" Weight: 104lbs. 4.0oz. 47.080575yj; 21.00 BMI Method:Stated General Appearance: WD/WN, no apparent distress Eyes: bilateral eye PERRL, bilateral eye EOMI Mouth/Throat: dental tenderness, mandibular swelling (mild swelling to the left main around where the tooth was pulled. She has mild swelling to the gums around the dental extraction site. 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 Will write for a few days of pain medicine and antibiotic in case there is infection with it being swollen. Encouraged to check back with the dentist and primary provider as well. Departure Impression Primary Impression: Pain, dental Additional Impression: Swelling of gums Disposition: HOME, SELF-CARE Condition: Stable Departure-Patient Inst. Decision time for Depature: 19:34 Referrals: SELFALEJANDRA MD (PCP/Family) Primary Care Physician Patient Instructions: Dental Pain (DC) Add. Discharge Instructions: take the antibiotics until gone. Use the pain medicine for severe pain and continue with the Ibuprofen for inflammation and swelling. keep your head elevated to help with swelling and pain. Follow up with Dentist for recheck of continued pain and swelling All discharge instructions reviewed with patient and/or family. Voiced understanding. Scripts Oxycodone Hcl (Oxycodone IR) 5 Mg Tab 5 MG PO Q4H PRN for PAIN-SEVERE (8-10) for 4 Days, #20 TAB 0 Refills Prov: GIANCARLO BENTLEY MD 07/17/19 Amoxicillin (Amoxicillin) 500 Mg Capsule 500 MG PO TID for 7 Days, #21 CAP 0 Refills Prov: GIANCARLO BENTLEY MD 07/17/19 GIANCARLO BENTLEY MD Jul 17, 2019 19:10 POS
[2019-07-17] MEDS ORDERED: OXC5T PO (19:37)
[2019-07-17] MEDS ORDERED: AMOX500C2 PO (19:37)
[2019-07-17 19:40] VITALS: BP 113/66
--- OUTSIDE RECORDS SUMMARY | 2019-08-13 01:17 | XMS REPORT | Continuity of Care Document ---
Author Organization Unknown Address Unknown Phone Unavailable Allergies Active Description Code Type Severity Reaction Onset Reported/Identified Relationship to Patient Clinical Status Yes acetaminophen [id number] Brett g Allergy Severe N/A 08/25/2018 Yes ondansetron HCl [id number] D rug Allergy Moderate N/A 08/25/2018 Medications There is no data. Problems Date Dx Coded Attending Type Code Diagnosis Diagnosed By 11/07/2012 JUAN MULLEN MD 530.81 GERD 11/07/2012 JUAN MULLEN MD 783.22 UNDERWEIGHT 01/02/2013 EMILY GOLDMAN, SMITH T Ot 789.00 ABDOMINAL PAIN, UNSPECIFIED SITE 10/06/2013 RADHA BLACKMON DO S Ot 646.83 PREG COMPL NEC-ANTEPART 10/06/2013 RADHA LBACKMON DO Ot 789.00 ABDOMINAL PAIN, UNSPECIFIED SITE 09/17/2014 TERRI BRYANT MD Ot 616.10 VAGINITIS NOS 09/17/2014 TERRI BRYANT MD Ot 625.9 FEM GENITAL SYMPTOMS NOS 09/17/2014 TERRI BRYANT MD Ot 626.2 EXCESSIVE MENSTRUATION 08/22/2015 CATHIE FINLEY MD Ot K21. 9 GASTRO-ESOPHAGEAL REFLUX DISEASE WITHOUT 08/22/2015 CATHIE FINLEY MD Ot O47. 03 FALSE LABOR BEFORE 37 COMPLETED WEEKS OF 08/22/2015 CATHIE FINLEY MD Ot O99.613 DISEASES OF THE DGSTV SYS COMP 08/22/2015 CATHIE FINLEY MD, Ot Z3A. 34 34 WEEKS GESTATION OF 12/17/2016 MARIE ESPINOSA [...] Z3A.28 28 WEEKS GESTATION OF 09/03/2017 SHRUTHI POSEY MD, Ot O47.03 FALSE LABOR [...] J45.909 UNSPECIFIED ASTHMA, UNCOMPLICATED 07/08/2018 TERRI BRYANT MD Ot K21.9 GASTRO-ESOPHAGEAL REFLUX DISEASE WITHOUT 07/08/2018 TERRI BRYANT MD Ot O20.0 THREATENED 07/08/2018 TERRI BRYANT MD, Ot O21.9 VOMITING OF , UNSPECIFIED 07/08/2018 TERRI BRYANT MD Ot O99.341 OTH MENTAL DISORDERS COMPLICATING PREGNA 07/08/2018 TERRI BRYANT MD Ot O99.511 DISEASES OF THE RESP SYS COMP , 07/08/2018 TERRI BRYANT MD Ot O99.611 DISEASES OF THE DGSTV [...] BRYANT MD, Ot Z88.8 ALLERGY STATUS TO OT DRUG/MEDS/BIOL SUB 07/08/2018 TERRI BRYANT MD, Ot Z90.89 ACQUIRED ABSENCE OF OTHER ORGANS 08/25/2018 LIZZETTE CABRERA APRN Ot F32 .9 MAJOR DEPRESSIVE DISORDER, SINGLE EPISOD 08/25/2018 LIZZETTE CABRERA APRN Ot F90 .9 ATTENTION-DEFICIT HYPERACTIVITY DISORDER 08/25/2018 LIZZETTE CABRERA APRN Ot F98 .8 OT BEHAV/EMOTN DISORD W ONSET USLY OCCU 08/25/2018 LIZZETTE CABRERA APRN Ot J45.909 UNSPECIFIED ASTHMA, UNCOMPLICATED 08/25/2018 LIZZETTE CABRERA APRN Ot K21 .9 GASTRO-ESOPHAGEAL REFLUX DISEASE WITHOUT 08/25/2018 LIZZETTE CABRERA APRN Ot L29 .9 PRURITUS, UNSPECIFIED 08/25/2018 LIZZETTE CABRERA APRN Ot O21 .9 VOMITING OF , UNSPECIFIED 08/25/2018 LIZZETTE CABRERA APRN Ot O99.342 OT MENTAL DISORDERS COMP , SEC 08/25/2018 LIZZETTE CABRERA APRN Ot O99.512 DISEASES OF THE RESP SYS COMP , 08/25/2018 LIZZETTE CABRERA APRN Ot O99.612 DISEASES OF THE DGSTV SYS COMP 08/25/2018 LIZZETTE CABRERA APRN Ot O99.712 DISEASES OF THE SKIN, SUBCU COMP PREGNAN 08/25/2018 LIZZETTE CABRERA APRN Ot Z3A.17 17 WEEKS GESTATION OF 08/25/2018 LIZZETTE CABRERA APRN Ot Z87.19 PERSONAL HISTORY OF OTHER DISEASES OF TH 08/25/2018 LIZZETTE CABRERA APRN Ot Z87.448 PERSONAL HISTORY OF OTHER DISEASES OF UR 08/25/2018 LIZZETTE CABRERA APRN Ot Z87.891 PERSONAL HISTORY OF NICOTINE DEPENDENCE 08/25/2018 LIZZETTE CABRERA APRN Ot Z88 .6 ALLERGY STATUS TO ANALGESIC AGENT STATUS 08/25/2018 LIZZETTE CABRERA APRN Ot Z88 .8 ALLERGY STATUS TO OTH DRUG/MEDS/BIOL SUB 08/25/2018 LIZZETTE CABRERA APRN Ot Z90.89 ACQUIRED ABSENCE OF OTHER ORGANS 08/27/2018 LIZZETTE CABRERA APRN Ot F32 .9 MAJOR DEPRESSIVE DISORDER, SINGLE EPISOD 08/27/2018 LIZZETTE CABRERA APRN Ot F90 .9 ATTENTION-DEFICIT HYPERACTIVITY DISORDER 08/27/2018 LIZZETTE CABRERA APRN Ot F98 .8 OT BEHAV/EMOTN DISORD W ONSET USLY OCCU 08/27/2018 LIZZETTE CABRERA APRN Ot J45.909 UNSPECIFIED ASTHMA, UNCOMPLICATED 08/27/2018 LZIZETTE CABRERA APRN Ot K21 .9 GASTRO-ESOPHAGEAL REFLUX DISEASE WITHOUT 08/27/2018 LIZZETTE CABRERA APRN Ot L29 .9 PRURITUS, UNSPECIFIED 08/27/2018 LIZZETTE CABRERA APRN Ot O21 .9 VOMITING OF , UNSPECIFIED 08/27/2018 LIZZETTE CABRERA APRN Ot O99.342 OT MENTAL DISORDERS COMP , SEC 08/27/2018 LIZZETTE CABRERA APRN Ot O99.512 DISEASES OF THE RESP SYS COMP , 08/27/2018 LIZZETTE CABRERA APRN Ot O99.612 DISEASES OF THE DGSTV SYS COMP 08/27/2018 LIZZETTE CABRERA APRN Ot O99.712 DISEASES OF THE SKIN, SUBCU COMP PREGNAN 08/27/2018 LIZZETTE CABRERA APRN Ot Z3A.17 17 WEEKS GESTATION OF 08/27/2018 LIZZETTE CABRERA APRN Ot Z87.19 PERSONAL HISTORY OF OTHER DISEASES OF TH 08/27/2018 LIZZETTE CABRERA APRN Ot Z87.448 PERSONAL HISTORY OF OTHER DISEASES OF UR 08/27/2018 LIZZETTE CABRERA APRN Ot Z87.891 PERSONAL HISTORY OF NICOTINE DEPENDENCE 08/27/2018 LIZZETTE CABRERA APRN Ot Z88 .6 ALLERGY STATUS TO ANALGESIC AGENT STATUS 08/27/2018 LIZZETTE CABRERA APRN Ot Z88 .8 ALLERGY STATUS TO OTH DRUG/MEDS/BIOL SUB 08/27/2018 LIZZETTE CABRERA APRN Ot Z90.89 ACQUIRED ABSENCE OF OTHER ORGANS 08/31/2018 LIZZETTE CABRERA APRN Ot F32 .9 MAJOR DEPRESSIVE DISORDER, SINGLE EPISOD 08/31/2018 LIZZETTE CABRERA APRN Ot F90 .9 ATTENTION-DEFICIT HYPERACTIVITY DISORDER 08/31/2018 LIZZETTE CABRERA APRN Ot F98 .8 OTH BEHAV/EMOTN DISORD W ONSET USLY OCCU 08/31/2018 LIZZETTE CABRERA APRN Ot J45.909 UNSPECIFIED ASTHMA, UNCOMPLICATED 08/31/2018 LIZZETTE CABRERA APRN Ot K21 .9 GASTRO-ESOPHAGEAL REFLUX DISEASE WITHOUT 08/31/2018 LIZZETTE CABRERA APRN Ot L29 .9 PRURITUS, UNSPECIFIED 08/31/2018 LIZZETTE CABRERA APRN Ot O21 .9 VOMITING OF , UNSPECIFIED 08/31/2018 LIZZETTE CABRERA APRN Ot O99.342 OT MENTAL DISORDERS COMP , SEC 08/31/2018 LIZZETTE CABRERA APRN Ot O99.512 DISEASES OF THE RESP SYS COMP , 08/31/2018 LIZZETTE CABRERA APRN Ot O99.612 DISEASES OF THE DGSTV SYS COMP 08/31/2018 LIZZETTE CABRERA APRN Ot O99.712 DISEASES OF THE SKIN, SUBCU COMP PREGNAN 08/31/2018 LIZZETTE CABRERA APRN Ot Z3A.17 17 WEEKS GESTATION OF 08/31/2018 LIZZETTE CABRERA APRN Ot Z87.19 PERSONAL HISTORY OF OTHER DISEASES OF TH 08/31/2018 LIZZETTE CABRERA APRN Ot Z87.448 PERSONAL HISTORY OF OTHER DISEASES OF UR 08/31/2018 LIZZETTE CABRERA APRN Ot Z87.891 PERSONAL HISTORY OF NICOTINE DEPENDENCE 08/31/2018 LIZZETTE CABRERA APRN Ot Z88 .6 ALLERGY STATUS TO ANALGESIC AGENT STATUS 08/31/2018 LIZZETTE CABRERA APRN Ot Z88 .8 ALLERGY STATUS TO OTH DRUG/MEDS/BIOL SUB 08/31/2018 LIZZETTE CABRERA APRN Ot Z90.89 ACQUIRED ABSENCE OF OTHER ORGANS 07/03/2019 GIANCARLO BENTLEY MD, Ot F17.2 10 NICOTINE DEPENDENCE, CIGARETTES, UNCOMPL 07/03/2019 GIANCARLO BENTLEY MD, Ot F32.9 MAJOR DEPRESSIVE DISORDER, SINGLE EPISOD 07/03/2019 GIANCARLO BENTLEY MD, Ot F90.9 ATTENTION-DEFICIT HYPERACTIVITY DISORDER 07/03/2019 GIANCARLO BENTLEY MD, Ot J45.9 09 UNSPECIFIED ASTHMA, UNCOMPLICATED 07/03/2019 GIANCARLO BENTLEY MD, Ot K21.9 GASTRO-ESOPHAGEAL REFLUX DISEASE WITHOUT 07/03/2019 GIANCARLO BENTLEY MD, Ot N92.6 IRREGULAR MENSTRUATION, UNSPECIFIED 07/03/2019 GIANCARLO BENTLEY MD, Ot R10.2 PELVIC AND PERINEAL PAIN 07/03/2019 GIANCARLO BENTLEY MD, Ot R11.2 NAUSEA WITH VOMITING, UNSPECIFIED 07/03/2019 GIANCARLO BENTLEY MD, Ot Z88.6 ALLERGY STATUS TO ANALGESIC AGENT STATUS 07/03/2019 GIANCARLO BENTLEY MD, Ot Z88.8 ALLERGY STATUS TO OTH DRUG/MEDS/BIOL SUB 07/03/2019 GIANCARLO BENTLEY MD, Ot Z90.8 9 ACQUIRED ABSENCE OF OTHER ORGANS 07/21/2019 GIANCARLO BENTLEY MD, Ot F32.9 MAJOR DEPRESSIVE DISORDER, SINGLE EPISOD 07/21/2019 GIANCARLO BENTLEY MD, Ot F90.9 ATTENTION-DEFICIT HYPERACTIVITY DISORDER 07/21/2019 GIANCARLO BENTLEY MD, Ot J45.9 09 UNSPECIFIED ASTHMA, UNCOMPLICATED 07/21/2019 GIANCARLO BENTLEY MD, Ot K06.8 OTH DISRD OF GINGIVA AND EDENTULOUS ALVE 07/21/2019 GIANCARLO BENTLEY MD, Ot K08.8 9 OTHER SPECIFIED DISORDERS OF TEETH AND S 07/21/2019 GIANCARLO BENTLEY MD, Ot K21.9 GASTRO-ESOPHAGEAL REFLUX DISEASE WITHOUT 07/21/2019 GIANCARLO BENTLEY MD, Ot Z77.2 2 CNTCT W AND EXPSR TO ENVIRON TOBACCO SMO 07/21/2019 GIANCARLO BENTLEY MD, Ot Z88.5 ALLERGY STATUS TO NARCOTIC AGENT STATUS 07/21/2019 GIANCARLO BENTLEY MD, Ot Z90.8 9 ACQUIRED ABSENCE OF OTHER ORGANS Procedures Code Description [place] [address] URIN E TEST (IN- HOUSE) 11/07/2012 83523 UA W / CULTURE IF INDICATED 11/07/2012 Results Test Result Range Complete urinalysis with reflex to cultu re - 12/17/16 19:44 Urine color determination YELLOW NRG Urine clarity determination SLIGHTLY CLOUDY NRG Urine pH measurement by test strip 6 5-9 Specific gravity of urine by test strip 1.025 1.016-1.022 Urine protein assay by test strip, semi-quantitative 2+ NEGATIVE Urine glucose detection by automated test strip NE GATIVE NEGATIVE Erythrocytes detection in urine sediment by light micr oscopy 5+ NEGATIVE Urine ketones detection by automated test strip NE GATIVE NEGATIVE Urine nitrite detection by test strip POSITIVE NEGATIVE Urine total bilirubin detection by test strip NEGA TIVE NEGATIVE Urine urobilinogen measurement by automated test strip (mass/volume) NORMAL NORMAL Urine leukocyte esterase detection by dipstick 1+ NEGATIVE Automated urine sediment erythrocyte cou nt by microscopy (number/high power field) [HPF] NRG Automated urine sediment leukocyte count by microscopy (number/high power field) [HPF] NRG Bacteria detection in urine sediment by light microsco py MODERATE NRG Crystals detection in urine sediment by light microsco py NONE NRG Casts detection in urine sediment by light microscopy NONE NRG Mucus detection in urine sediment by light microscopy NEGATIVE NRG Complete urinalysis with reflex to culture YES NRG Renal epithelial cells detection in urin e sediment by light microscopy 0-2 NRG Bacterial urine culture - 12/17/16 19:44 Bacterial urine culture [id number] NRG COLONY COUNT 10,000/ML - 100,000/ML NRG FTX;REPORTABLE SENSITIVITY REPORTED 12/19/16 7:45 NRG FREE TEXT ENTRY 2 PLUS, MIXED GRAM POSITIVES <10,0 00/ML NRG Bacterial susceptibility panel - 7 19:44 Gentamicin susceptibility test by minimum inhibitory c oncentration <= NRG Trimethoprim/sulfamethoxazole susceptibi lity test by minimum inhibitoryconcentration <= NRG Ampicillin susceptibility test by minimum inhibitory c oncentration 4 NRG Tobramycin susceptibility test by minimum inhibitory c oncentration <= NRG Cefazolin susceptibility test by minimum inhibitory co ncentration <= NRG Ceftriaxone susceptibility test by minimum inhibitory concentration <= NRG Ampicillin/sulbactam susceptibility test by minimum inhibitory concentration <= NRG Piperacillin/tazobactam susceptibility t est by minimum inhibitory concentration <= NRG Ciprofloxacin susceptibility test by minimum inhibitor y concentration <= NRG Meropenem susceptibility test by minimum inhibitory co ncentration <= NRG Nitrofurantoin susceptibility test by mi nimum inhibitory concentration <= NRG Aztreonam susceptibility test by minimum inhibitory co ncentration <= NRG Extended spectrum beta lactamase (ESBL) producing bacteria susceptibility test by minimum inhibitory concentration - NRG Complete urinalysis with reflex to cultu re - 02/08/17 19:30 Urine color determination YELLOW NRG Urine clarity determination SLIGHTLY CLOUDY NRG Urine pH measurement by test strip 5 5-9 Specific gravity of urine by test strip 1.030 1.016-1.022 Urine protein assay by test strip, semi-quantitative 2+ NEGATIVE Urine glucose detection by automated test strip NE GATIVE NEGATIVE Erythrocytes detection in urine sediment by light micr oscopy 1+ NEGATIVE Urine ketones detection by automated test strip NE GATIVE NEGATIVE Urine nitrite detection by test strip NEGATIVE NEGATIVE Urine total bilirubin detection by test strip NEGA TIVE NEGATIVE Urine urobilinogen measurement by automated test strip (mass/volume) 1 mg/dL NORMAL Urine leukocyte esterase detection by dipstick 3+ NEGATIVE Automated urine sediment erythrocyte cou nt by microscopy (number/high power field) [HPF] NRG Automated urine sediment leukocyte count by microscopy (number/high power field) [HPF] NRG Bacteria detection in urine sediment by light microsco py MODERATE NRG Squamous epithelial cells detection in u rine sediment by light microscopy >50 NRG Crystals detection in urine sediment by light microsco py NONE NRG Casts detection in urine sediment by light microscopy NONE NRG Mucus detection in urine sediment by light microscopy SMALL NRG Complete urinalysis with reflex to culture YES NRG Bacterial urine culture - 02/08/17 19:30 Bacterial urine culture [id number] NRG COLONY COUNT 10,000/ML - 100,000/ML NRG FREE TEXT ENTRY 3 MIXED GRAM POSITIVE NENA NRG Complete urinalysis with reflex to cultu re - 06/27/17 12:00 Urine color determination YELLOW NRG Urine clarity determination CLEAR NR G Urine pH measurement by test strip 6 5-9 Specific gravity of urine by test strip 1.010 1.016-1.022 Urine protein assay by test strip, semi-quantitative NEGATIVE NEGATIVE Urine glucose detection by automated test strip NE GATIVE NEGATIVE Erythrocytes detection in urine sediment by light micr oscopy NEGATIVE NEGATIVE Urine ketones detection by automated test strip NE GATIVE NEGATIVE Urine nitrite detection by test strip NEGATIVE NEGATIVE Urine total bilirubin detection by test strip NEGA TIVE NEGATIVE Urine urobilinogen measurement by automated test strip (mass/volume) NORMAL NORMAL Urine leukocyte esterase detection by dipstick 2+ NEGATIVE Automated urine sediment erythrocyte cou nt by microscopy (number/high power field) NONE NRG Automated urine sediment leukocyte count by microscopy (number/high power field) [HPF] NRG Bacteria detection in urine sediment by light microsco py TRACE NRG Squamous epithelial cells detection in u rine sediment by light microscopy 10-25 NRG Crystals detection in urine sediment by light microsco py NONE NRG Casts detection in urine sediment by light microscopy NONE NRG Mucus detection in urine sediment by light microscopy NEGATIVE NRG Complete urinalysis with reflex to culture YES NRG Bacterial urine culture - 06/27/17 12:00 URINE CULTURE RESULTS UNLESS REQUESTED NRG Complete urinalysis with reflex to cultu re - 07/08/18 17:25 Urine color determination YELLOW NRG Urine clarity determination CLEAR NR G Urine pH measurement by test strip 6 5-9 Specific gravity of urine by test strip 1.025 1.016-1.022 Urine protein assay by test strip, semi-quantitative 1+ NEGATIVE Urine glucose detection by automated test strip NE GATIVE NEGATIVE Erythrocytes detection in urine sediment by light micr oscopy NEGATIVE NEGATIVE Urine ketones detection by automated test strip NE GATIVE NEGATIVE Urine nitrite detection by test strip NEGATIVE NEGATIVE Urine total bilirubin detection by test strip NEGA TIVE NEGATIVE Urine urobilinogen measurement by automated test strip (mass/volume) 1 mg/dL NORMAL Urine leukocyte esterase detection by dipstick 1+ NEGATIVE Automated urine sediment erythrocyte cou nt by microscopy (number/high power field) NONE NRG Automated urine sediment leukocyte count by microscopy (number/high power field) [HPF] NRG Bacteria detection in urine sediment by light microsco py LARGE NRG Squamous epithelial cells detection in u rine sediment by light microscopy 25-50 NRG Crystals detection in urine sediment by light microsco py NONE NRG Casts detection in urine sediment by light microscopy NONE NRG Mucus detection in urine sediment by light microscopy LARGE NRG Complete urinalysis with reflex to culture NO NRG Complete blood count (CBC) with automate d white blood cell (WBC) differential - 07/08/18 17:47 Blood leukocytes automated count (number/volume) 5.1 10*3/uL 4.3-11.0 Blood erythrocytes automated count (number/volume) 4.54 10*6/uL 4.35-5.85 Venous blood hemoglobin measurement (mass/volume) 13.1 g/dL 11.5-16.0 Blood hematocrit (volume fraction) 38 % 35-52 Automated erythrocyte mean corpuscular volume 85 [ foz_us] 80-99 Automated erythrocyte mean corpuscular h emoglobin (mass per erythrocyte) 29 pg 25-34 Automated erythrocyte mean corpuscular h emoglobin concentration measurement (mass/volume) 34 g/dL 32-36 Automated erythrocyte distribution width ratio 13. 8 % 10.0- 14.5 Automated blood platelet count (count/volume) 281 10*3/uL [...] 10*3 1.0-4.0 Blood monocytes automated count (number/volume) 0. 5 10*3 0.0-1.0 Automated eosinophil count 0.2 10*3/uL 0 .0-0.3 Automated blood basophil count (count/volume) 0.0 10*3/uL 0.0-0.1 ABO+Rh group - 07/08/18 17:47 ABO+Rh group OP NRG Transfusion band number TNP [facility] Whole blood basic metabolic panel - 06/14 01/28 17:47 Serum or plasma sodium measurement (moles/volume) 138 mmol/L 135-145 Serum or plasma potassium measurement (moles/volume) 3.7 mmol/L 3.6-5.0 Serum or plasma chloride measurement (moles/volume) 105 mmol/L 98-107 Carbon dioxide 20 mmol/L 21-32 Serum or plasma anion gap determination (moles/volume) 13 mmol/L 5-14 Serum or plasma urea nitrogen measurement (mass/volume ) 7 mg/dL 7-18 Serum or plasma creatinine measurement (mass/volume) 0.66 mg/dL 0.60-1.30 Serum or plasma urea nitrogen/creatinine mass ratio 11 NRG Serum or plasma creatinine measurement w ith calculation of estimated glomerular filtration rate > NRG Serum or plasma glucose measurement (mass/volume) 62 mg/dL 70-105 Serum or plasma calcium measurement (mass/volume) 9.9 mg/dL 8.5-10.1 Serum or plasma choriogonadotropin measu rement (units/volume) - 07/08/18 17:47 Serum or plasma choriogonadotropin measurement (units/ volume) [id number] m[iU]/mL <5 Complete blood count (CBC) with automate d white blood cell (WBC) differential - 08/25/18 15:02 Blood leukocytes automated count (number/volume) 6.4 10*3/uL 4.3-11.0 Blood erythrocytes automated count (number/volume) 4.31 10*6/uL 4.35-5.85 Venous blood hemoglobin measurement (mass/volume) 12.7 g/dL 11.5-16.0 Blood hematocrit (volume fraction) 38 % 35-52 Automated erythrocyte mean corpuscular volume 88 [ foz_us] 80-99 Automated erythrocyte mean corpuscular h emoglobin (mass per erythrocyte) 30 pg 25-34 Automated erythrocyte mean corpuscular h emoglobin concentration measurement (mass/volume) 34 g/dL 32-36 Automated erythrocyte distribution width ratio 15. 0 % 10.0- 14.5 Automated blood platelet count (count/volume) 289 10*3/uL 130-400 Automated blood platelet mean volume measurement 9.3 [foz_us] 7.4-10.4 Automated blood neutrophils/100 leukocytes 64 % 42-75 Automated blood lymphocytes/100 leukocytes 26 % 12-44 Blood monocytes/100 leukocytes 7 % 0-12 Automated blood eosinophils/100 leukocytes 3 % 0-10 Automated blood basophils/100 leukocytes 1 % 0-10 Blood neutrophils automated count (number/volume) 4.1 10*3 1.8-7.8 Blood lymphocytes automated count (number/volume) 1.7 10*3 1.0-4.0 Blood monocytes automated count (number/volume) 0. 4 10*3 0.0-1.0 Automated eosinophil count 0.2 10*3/uL 0 .0-0.3 Automated blood basophil count (count/volume) 0.0 10*3/uL 0.0-0.1 Whole blood basic metabolic panel - 08/13 10/29 15:02 Serum or plasma sodium measurement (moles/volume) 137 mmol/L 135-145 Serum or plasma potassium measurement (moles/volume) 4.4 mmol/L 3.6-5.0 Serum or plasma chloride measurement (moles/volume) 106 mmol/L 98-107 Carbon dioxide 20 mmol/L 21-32 Serum or plasma anion gap determination (moles/volume) 11 mmol/L 5-14 Serum or plasma urea nitrogen measurement (mass/volume ) 7 mg/dL 7-18 Serum or plasma creatinine measurement (mass/volume) 0.64 mg/dL 0.60-1.30 Serum or plasma urea nitrogen/creatinine mass ratio 11 NRG Serum or plasma creatinine measurement w ith calculation of estimated glomerular filtration rate > NRG Serum or plasma glucose measurement (mass/volume) 81 mg/dL 70-105 Serum or plasma calcium measurement (mass/volume) 9.7 mg/dL 8.5-10.1 Serum or plasma total bilirubin measurem ent (mass/volume) - 08/25/18 15:02 Serum or plasma total bilirubin measurement (mass/volu me) 0.4 mg/dL 0.1-1.0 Serum or plasma alkaline phosphatase dolores surement (enzymatic activity/volume) - 08/25/18 15:02 Serum or plasma alkaline phosphatase dolores surement (enzymatic activity/volume) 56 U/L 40-136 Serum or plasma aspartate aminotransfera se measurement (enzymatic activity/volume) - 08/25/18 15:02 Serum or plasma aspartate aminotransfera se measurement (enzymatic activity/volume) 16 U/L 5-34 Serum or plasma alanine aminotransferase measurement (enzymatic activity/volume) - 08/25/18 15:02 Serum or plasma alanine aminotransferase measurement (enzymatic activity/volume) 9 U/L 0-55 CBC w/MANUAL DIFF - 11/13/18 13:49 WHITE BLOOD CELL COUNT 6.5 Thousand/uL 3 .8-10.8 RED BLOOD CELL COUNT 3.55 Million/uL 3.8 0-5.10 HEMOGLOBIN 9.4 g/dL 11.7-15.5 HEMATOCRIT 29.2 % 35.0-45.0 MCV 82.3 fL 80.0-100.0 MCH 26.5 pg 27.0-33.0 MCHC 32.2 g/dL 32.0-36.0 RDW 13.0 % 11.0-15.0 PLATELET COUNT 232 Thousand/uL 140-400 MPV 9.7 fL 7.5-12.5 DIFFERENTIAL, MANUAL - 11/13/18 13:49 ABSOLUTE NEUTROPHILS 4745 cells/uL 1500- 7800 ABSOLUTE MONOCYTES 325 cells/uL 200-950 ABSOLUTE EOSINOPHILS 130 cells/uL 15-500 ABSOLUTE BASOPHILS 0 cells/uL 0-200 NEUTROPHILS 73.0 % NRG LYMPHOCYTES 20.0 % NRG MONOCYTES 5.0 % NRG EOSINOPHILS 2.0 % NRG BASOPHILS 0 % NRG ABSOLUTE LYMPHOCYTES 1300 cells/uL 850-3 900 PLATELET ESTIMATION ADEQUATE ADEQUATE CBC MORPHOLOGY NORMAL SYPHILIS (RPR W/ REFLEX CONFIRMATION) - 11/19/18 14:21 RPR (DX) W/REFL TITER AND CONFIRMATORY TESTING NON-REACTIVE NON-REACTIVE Urine beta human chorionic gonadotropin (hCG) measurement - 07/01/19 20:19 Urine beta human chorionic gonadotropin (hCG) measurem ent NEGATIVE NEGATIVE Complete urinalysis with reflex to cultu re - 07/01/19 20:19 Urine color determination YELLOW NRG Urine clarity determination CLOUDY NR G Urine pH measurement by test strip 8.0 5-9 Specific gravity of urine by test strip 1.015 1.016-1.022 Urine protein assay by test strip, semi-quantitative NEGATIVE NEGATIVE Urine glucose detection by automated test strip NE GATIVE NEGATIVE Erythrocytes detection in urine sediment by light micr oscopy 1+ NEGATIVE Urine ketones detection by automated test strip NE GATIVE NEGATIVE Urine nitrite detection by test strip NEGATIVE NEGATIVE Urine total bilirubin detection by test strip NEGA TIVE NEGATIVE Urine urobilinogen measurement by automated test strip (mass/volume) 0.2 mg/dL < = 1.0 Urine leukocyte esterase detection by dipstick NEG ATIVE NEGATIVE Automated urine sediment erythrocyte cou nt by microscopy (number/high power field) [HPF] NRG Automated urine sediment leukocyte count by microscopy (number/high power field) RARE NRG Bacteria detection in urine sediment by light microsco py NONE NRG Squamous epithelial cells detection in u rine sediment by light microscopy 5-10 NRG Crystals detection in urine sediment by light microsco py PRESENT NRG Casts detection in urine sediment by light microscopy NONE NRG Mucus detection in urine sediment by light microscopy NEGATIVE NRG Complete urinalysis with reflex to culture NO NRG Amorphous sediment detection in urine sediment by ligh t microscopy MOD ELSA PHOSPHATE NRG HCG, QUANTITATIVE - 08/07/19 09:41 HCG, TOTAL, QN <2 mIU/mL NRG Encounters ACCT No. Visit Date/Time Discharge Status Pt. Type Provider Facility Loc./Unit Complaint [id number] 11/07/2012 10:30:00 11/07/2012 23:59: 59 CLS Outpatient MAITE FIORE MD, JUAN Scott [id number] 08/07/2019 09:40:00 08/07/2019 23:59:5 9 CLS Outpatient ANGELA SAMS [facility] [id number] 08/07/2019 09:40:00 Document Registration [id number] 11/19/2018 14:00:00 Document Registration [id number] 11/13/2018 13:20:00 Document Registration [id number] 07/17/2019 18:14:00 19:40:00 DIS Outpatient GIANCARLO BENTLEY MD [facility] ER FS MOUTH PAIN [id number] 07/01/2019 19:36:00 21:40:00 DIS Outpatient GIANCARLO BENTLEY MD [facility] ER FS VOMITTING [id number] 08/25/2018 14:01:00 15:42:00 DIS Emergency LIZZETTE CABRERA APRN [facility] ER 17 WKS PREG/L SIDE SKIN BURNING/HX OF SHINGLES [id number] 07/08/2018 17:01:00 18:39:00 DIS Emergency TERRI BRYANT MD [facility] ER 8 WKS PREG/ABD PAIN/DIZZINESS [id number] 02/13/2018 19:26:00 19:40:00 DIS Emergency AMARA ORDONEZ [facility] ER ABD PAIN [id number] 08/30/2017 12:27:00 14:20:00 DIS Outpatient SHRUTHI POSEY MD [facility] WSo ABDOMINAL PAIN [id number] 08/07/2017 13:45:00 017 14:45:00 DIS Outpatient TATY GOLDMAN, SHRUTHI Zuniga [facility] INCREASED PAIN, VAGINAL DISCHARGE [id number] 06/27/2017 13:45:00 017 14:55:00 DIS Outpatient TATY GOLDMAN, SHRUTHI Zuniga [facility] ABD CRAMPING,N/ V [id number] 06/27/2017 10:56:00 017 13:44:00 DIS Emergency EMILY GOLDMAN, SMITH Batista [facility] ER ABD CRAMPING, 1 9 WKS 2 DAYS PG [id number] 02/08/2017 19:08:00 017 20:03:00 DIS Emergency SMITH DIAZ MD [facility] ER UPPER ABDOMINAL PAIN [id number] 12/17/2016 19:09:00 017 21:18:00 DIS Emergency MARIE ESPINOSA [facility] ER POSS UTI [id number] 08/21/2015 22:52:00 016 11:00:00 DIS Outpatient TUSHAR GOLDMAN, CATHIE Tristan [facility] ABD PAIN [id number] 09/17/2014 09:39:00 015 11:04:00 DIS Emergency TERRI BRYANT MD [facility] ER VAG PAIN/DISCHA RGE [id number] 10/06/2013 22:20:00 014 23:32:00 DIS Outpatient RADHA BLACKMON DO S [facility], ABD PAIN [id number] 01/01/2013 21:34:00 013 02:10:00 DIS Emergency SMITH DIAZ MD [facility] ER ABD PAIN
--- OUTSIDE RECORDS SUMMARY | 2019-08-13 01:17 | XMS REPORT ---
Author Author Greta CAMPUZANO Organization [facility] Address Unknown Care Team Providers Care Asic Engineer Name Role Phone ABBY CAMPUZAONLEY Unavailable PROBLEMS Type Condition ICD9-CM Code [id number] Code Onset Dates Condition S tatus SNOMED Code Problem Missed period N92.6 Active 729729 00 Problem Abdominal bloating R14.0 Active 1 41350186 Problem Underweight 783.22 Active 69741419 6 Problem Esophageal reflux 530.81 Active 24 2828873 ALLERGIES No Information ENCOUNTERS Encounter Location Date Diagnosis [facility] [address] [place] [address] Feb, [facility] [address] [place] [address] Nov, Mouth pain K13.[address] [address] Nov, , unspecified gestational age Z 34.[address] [address] Nov, Abdominal bloating R14.[address] [address] Nov, Costochondritis, acute M94.0 and SOB (shortness of breath) R06.[address] [address] Oct, Pelvic and perineal pain R10.2 and Other specified related conditions, second trimester O26.[address] [address] Oct, [address] [address] Oct, Encounter for supervision of other rose marie l , second trimester Z34.82 [facility] [address] [place] [address] Sep, Acute sinusitis with symptoms > 10 days J01.90 and 28 weeks gestation of Z3A.[address] [address] Sep, [facility] [place] [address] [place] [address] Sep, Upper respiratory infection J06.9 and Nausea & vomiting R11.[address] [address] Sep, , unspecified gestational age Z 34.[address] [address] Sep, [address] [address] Sep, , unspecified gestational age Z 34.90 [place] [address] [place] [address] Sep Acute URI J06.9 [facility] [address] [facility] [id number] [address] [place] [address] Aug, Missed period N92.6 ; Pregna ncy, unspecified gestational age Z34.90 ; Abnormal cervical Papanicolaou smear, unspecified abnormal pap finding R87.619 and Abdominal bloating R14.0 [place] [address] [place] [address] Aug Missed period N92.6 ; , unspecified gestational age Z34.90 ; Abnormal cervical Papanicolaou smear, unspecified abnormal pap finding R87.619 and Abdominal bloating R14.0 [facility] [address] [id number] [address] [place] [id number] Aug, Encounter for dental exam an d cleaning w/o abnormal findings Z01.20 [facility] [address] [facility] [id number] [address] [place] [phone] Nov, [facility] [address] [place] [id number] [address] [place] [address] Nov, [facility] [address] [place] [id number] [address] [place] [phone] Mar, [facility] [address] [facility] [id number] [address] [place] [phone] Mar, [facility] [address] [facility] [id number] [address] [place] [phone] Feb, [facility] [address] [facility] [id number] [address] [place] [phone] Oct, [facility] [address] [facility] [id number] [address] [place] [phone] Oct, IMMUNIZATIONS No Known Immunizations SOCIAL HISTORY Never Assessed REASON FOR VISIT PLAN OF CARE VITAL SIGNS MEDICATIONS Unknown Medications RESULTS No Results PROCEDURES No Known procedures INSTRUCTIONS MEDICATIONS ADMINISTERED No Known Medications MEDICAL (GENERAL) HISTORY Type Description Date Medical History 34 WEEKS Medical History asthma Surgical History tonsilectomy Surgical History gallbladder Surgical History wisdom teeth extracted Hospitalization History see surgical history
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
--- OUTSIDE RECORDS SUMMARY | 2019-08-13 01:17 | XMS REPORT ---
Author Author Greta Goddard Doctor Organization [facility] Address Unknown Phone Unavailable Care Team Providers Care Broomcorn Scraper Name Role Phone Migration, Doctor Unavailable Unavailable PROBLEMS Type Condition ICD9-CM Code [id number] Code Onset Dates Condition S tatus SNOMED Code Problem Missed period N92.6 Active 420653 00 Problem Abdominal bloating R14.0 Active 1 68759828 Problem Underweight 783.22 Active 33610225 6 Problem Esophageal reflux 530.81 Active 24 0583927 ALLERGIES No Information ENCOUNTERS Encounter Location Date Diagnosis [facility] [address] [place] [address] Nov, 19 Mouth pain K13.[address] [address] 09 Nov, 2018 , unspecified gestational age Z 34.[address] [address] Nov, Abdominal bloating R14.[address] [address] 03 Nov, 2018 Costochondritis, acute M94.0 and SOB (shortness of breath) R06.[address] [address] Oct, Pelvic and perineal pain R10.2 and Other specified related conditions, second trimester O26.[address] [address] Oct, [address] [address] 13 Oct, 2018 Encounter for supervision of other rose marie boateng , second trimester Z34.82 [facility] [address] [place] [address] Sep, Acute sinusitis with symptoms > 10 days J01.90 and 28 weeks gestation of Z3A.[address] [place] [address] Sep, [facility] [place] [address] [place] [address] Sep, Upper respiratory infection J06.9 and Nausea & vomiting R11.[address] [address] Sep, , unspecified gestational age Z 34.[address] [address] Sep, [address] [address] Sep, , unspecified gestational age Z 34.90 [facility] [address] [place] [address] Sep Acute URI J06.9 [facility] [place] [address] [facility] [id number] [address] [place] [address] Aug, Missed period N92.6 ; Pregna ncy, unspecified gestational age Z34.90 ; Abnormal cervical Papanicolaou smear, unspecified abnormal pap finding R87.619 and Abdominal bloating R14.0 [facility] [address] [place] [phone] Aug Missed period N92.6 ; , unspecified gestational age Z34.90 ; Abnormal cervical Papanicolaou smear, unspecified abnormal pap finding R87.619 and Abdominal bloating R14.0 [facility] [address] [id number] [address] [place] [phone] Aug, Encounter for dental exam an d cleaning w/o abnormal findings Z01.20 [facility] [place] [address] [facility] [id number] [address] [place] [phone] Nov, [facility] [place] [address] [facility] [id number] [address] [place] [phone] Nov, [facility] [place] [address] [facility] [id number] [address] [place] [phone] Mar, [facility] [place] [address] [place] [id number] [address] [place] [phone] Mar, [facility] [place] [address] [facility] [id number] [address] [place] [phone] Feb, [facility] [place] [address] [facility] [id number] [address] [place] [phone] Oct, [facility] [place] [address] [facility] [id number] [address] [place] [phone] Oct, IMMUNIZATIONS No Known Immunizations SOCIAL HISTORY Never Assessed REASON FOR VISIT [facility] [place]ARE VITAL SIGNS MEDICATIONS No Known Medications RESULTS No Results PROCEDURES No Known procedures INSTRUCTIONS MEDICATIONS ADMINISTERED No Known Medications MEDICAL (GENERAL) HISTORY Type Description Date Medical History 34 WEEKS Medical History asthma Surgical History tonsilectomy Surgical History gallbladder Surgical History wisdom teeth extracted Hospitalization History see surgical history
--- OUTSIDE RECORDS SUMMARY | 2019-08-13 01:17 | XMS REPORT | Clinical Summary ---
Author Author [facility] Organization [facility] Address Unknown Phone Unavailable Care Team Providers Care Electronic Tester Name Role Phone Self, Alaina RN PCP Unavailable Allergies Comments Active Allergy Reactions Severity Noted Date Acetaminophen Anaphylaxis High 06/01/2019 Ondansetron Hcl Anaphylaxis High 06/01/2019 Medications End Date Status Medication Sig Dispensed Refills Start Date Active cyclobenzaprine Take 1 tablet 15 tablet 0 06/01/20 1 (FLEXERIL) 10 MG tablet (10 mg total) 9 by mouth 3 (three) times a day as needed for muscle spasms. Active naproxen (NAPROSYN) 500 Take 0.5 14 tablet 0 10 /20/201 MG tablet tablets (250 9 mg total) by mouth 2 (two) times a day with meals. Active traMADol (ULTRAM) 50 mg Take 1 tablet 15 tablet 0 10/20/201 tablet (50 mg total) 9 by mouth every 6 (six) hours as needed for pain. Max Daily Dose: 200 mg Active Problems Not on file Encounters Care Team Description Date Type Specialty Eligio James PA-C Thoracic myofascial strain, initial enco unter (Primary Dx) 06/01/2019 Emergency Emergency Medicine from Last 3 Months Social History Date Tobacco Use Types Packs/Day [...] 06/01/2019 10:03 PM CDT Body Mass Index Plan of Treatment Not on file Results Not on filefrom Last 3 Months Insurance Type Payer Benefit Subscriber ID Effective Phone Address Plan / Dates Group MEDICAID MANAGED CARE [employer] xxxxxxxxxxx 20 19 ([place]) BETTER -Present [facility] Advance Directives For more information, please contact: [phone] Patient Marketing Services Vice President Explanation Type Date Recorded Health Care Directive
--- OUTSIDE RECORDS SUMMARY | 2019-08-13 01:17 | XMS REPORT ---
Author Author Greta SUBRAMANIAN Organization [facility] Address [address] [place] [address] Care Team Providers Care Administrative Clerk Name Role Phone RADHA SUBRAMANIAN Unavailable PROBLEMS Type Condition ICD9-CM Code [id number] Code Onset Dates Condition S tatus SNOMED Code Problem Missed period N92.6 Active 271918 00 Problem Abdominal bloating R14.0 Active 1 01017153 Problem Underweight 783.22 Active 90830893 6 Problem Esophageal reflux 530.81 Active 24 2767239 ALLERGIES Substance Reaction Event Type Date Status tylenol Unknown Non Drug Allergy Sep, Active ZOFRAN Unknown Non Drug Allergy Sep, Active ENCOUNTERS Encounter Location Date Diagnosis [facility] [address] [place] [address] Nov, 19 Mouth pain K13.[address] [address] Nov, , unspecified gestational age Z 34.[address] [address] Nov, Abdominal bloating R14.[address] [address] Nov, Costochondritis, acute M94.0 and SOB (shortness of breath) R06.[address] [address] Oct, Pelvic and perineal pain R10.2 and Other specified related conditions, second trimester O26.[address] [address] Oct, [address] [address] Oct, Encounter for supervision of nikolai boateng , second trimester Z34.82 [facility] [address] [place] [address] Sep, Acute sinusitis with symptoms > 10 days J01.90 and 28 weeks gestation of Z3A.[address] [address] Sep, [facility] [address] [facility] [place] [address] Sep, Upper respiratory infection J06.9 and Nausea & vomiting R11.[address] [address] Sep, , unspecified gestational age Z 34.[address] [address] Sep, [address] [address] Sep, , unspecified gestational age Z 34.90 [place] [address] [place] [address] Sep Acute URI J06.9 [facility] [address] [facility] [id number] [address] [place] [address] Aug, Missed period N92.6 ; Pregna ncy, unspecified gestational age Z34.90 ; Abnormal cervical Papanicolaou smear, unspecified abnormal pap finding R87.619 and Abdominal bloating R14.0 [facility] [address] [place] [address] Aug Missed period N92.6 ; , unspecified gestational age Z34.90 ; Abnormal cervical Papanicolaou smear, unspecified abnormal pap finding R87.619 and Abdominal bloating R14.0 [facility] [address] [facility] [id number] [address] [place] [id number] Aug, Encounter for dental exam an d cleaning w/o abnormal findings Z01.20 [facility] [address] [facility] [id number] [address] [place] [address] Nov, [facility] [address] [place] [id number] [address] [place] [address] Nov, [facility] [address] [facility] [id number] [address] [place] [phone] Mar, [facility] [address] [id number] [address] [place] [address] Mar, [facility] [address] [facility] [id number] [address] [place] [address] Feb, [facility] [address] [facility] [id number] [address] [place] [address] Oct, [facility] [address] [facility] [id number] [address] [place] [address] Oct, IMMUNIZATIONS No Known Immunizations SOCIAL HISTORY Never Assessed REASON FOR VISIT 28 weeks , sore on left side of nose, swollen, knot on throat, left side facial swelling this morning regino CAM PLAN OF CARE Activity Details Follow Up prn Reason: VITAL SIGNS Height 61 in 2018-10-10 Weight 108 lbs 2018-10-10 Temperature 98.2 degrees Fahrenheit 2018-10-10 Heart Rate 104 bpm 2018-10-10 Respiratory Rate 20 2018-10-10 BMI 20.4 kg/m2 2018-10-10 Blood pressure systolic 104 mmHg 2018-10-10 Blood pressure diastolic 56 mmHg 2018-10-10 MEDICATIONS Medication Instructions Dosage Frequency Start Date End Date Duration S tatus Amoxicillin 500 MG Orally 2 times a day 2 tablet 12h Sep, 10 day(s) Active 28-0.8 MG Orally Once a day 1 tablet 24h 30 day(s) Active Flonase 50 mcg/act Nasally Once a day 1 spray in each nostril 24h 13 Sep, 2018 30 day(s) Active RESULTS No Results PROCEDURES No Known procedures INSTRUCTIONS MEDICATIONS ADMINISTERED No Known Medications MEDICAL (GENERAL) HISTORY Type Description Date Medical History 34 WEEKS Medical History asthma Surgical History tonsilectomy Surgical History gallbladder Surgical History wisdom teeth extracted Hospitalization History see surgical history
--- OUTSIDE RECORDS SUMMARY | 2019-08-13 01:17 | XMS REPORT ---
Author Author Greta Goddard Doctor Organization [facility] Address Unknown Phone Unavailable Care Team Providers Care Fly Rail Operator Name Role Phone Migration, Doctor Unavailable Unavailable PROBLEMS Type Condition ICD9-CM Code AUV36-GE Code Onset Dates Condition S tatus SNOMED Code Problem Esophageal reflux 530.81 Active 24 4547029 Problem Missed period N92.6 Active 659638 00 Problem Underweight 783.22 Active 22468718 6 ALLERGIES No Information ENCOUNTERS Encounter Location Date Diagnosis [facility] [address] [place] [address] Nov, [address] [address] Nov, [facility] [address] [place] [address] Nov, Costochondritis, acute M94.0 and SOB (shortness of breath) R06.[address] [address] Oct, Pelvic and perineal pain R10.2 and Other specified related conditions, second trimester O26.[address] [address] Oct, [address] [address] Oct, Encounter for supervision of other rose marie l , second trimester Z34.82 [facility] [address] [place] [address] Sep, Acute sinusitis with symptoms > 10 days J01.90 and 28 weeks gestation of Z3A.[address] [address] Sep, [facility] [place] [address] [place] [address] Sep, Upper respiratory infection J06.9 and Nausea & vomiting R11.2 [place] [address] [place] [address] Sep, , unspecified gestational age Z 34.90 [facility] [address] [place] [address] Sep, [address] [address] Sep, , unspecified gestational age Z 34.90 [facility] [address] [place] [address] Sep Acute URI J06.9 [facility] [address] [id number] [address] [place] [address] Aug, Missed period N92.6 ; Pregna ncy, unspecified gestational age Z34.90 ; Abnormal cervical Papanicolaou smear, unspecified abnormal pap finding R87.619 and Abdominal bloating R14.0 [facility] [address] [place] [address] Aug Missed period N92.6 ; , unspecified gestational age Z34.90 ; Abnormal cervical Papanicolaou smear, unspecified abnormal pap finding R87.619 and Abdominal bloating R14.0 [facility] [address] [id number] [address] [place] [id number] Aug, Encounter for dental exam an d cleaning w/o abnormal findings Z01.20 [facility] [address] [id number] [address] [place] [address] Nov, [facility] [address] [id number] [address] [place] [address] Nov, [facility] [address] [facility] [id number] [address] [place] [phone] Mar, [facility] [address] [id number] [address] [place] [address] Mar, [facility] [address] [facility] [id number] [address] [place] [phone] Feb, [facility] [address] [facility] [id number] [address] [address] Oct, [facility] [address] [facility] [id number] [address] [address] Oct, IMMUNIZATIONS No Known Immunizations SOCIAL HISTORY Never Assessed REASON FOR VISIT EMR-[facility] PLAN OF CARE VITAL SIGNS MEDICATIONS Medication Instructions Dosage Frequency Start Date End Date Duration S tatus Prilosec 20 mg 1 capsule by Oral route 2 times per day 2 Oct, Active Zofran ODT 8 mg Oct, Act jake Tylenol 325 mg Oct, Acti ve RESULTS No Results PROCEDURES No Known procedures INSTRUCTIONS MEDICATIONS ADMINISTERED No Known Medications MEDICAL (GENERAL) HISTORY Type Description Date Medical History 28 WEEKS Medical History asthma Surgical History tonsilectomy Surgical History gallbladder Surgical History wisdom teeth extracted Hospitalization History see surgical history
== END 2019-07-17 19:40 | disposition home or self-care (01) ==
LOC: EDUNIT# 18:13 → ER FS 18:14
DX: K06.8 Other specified disorders of gingiva and edentulous alveolar ridge (principal); K08.89 Other specified disorders of teeth and supporting structures; J45.909 Unspecified asthma, uncomplicated; K21.9 Gastro-esophageal reflux disease without esophagitis; F90.9 Attention-deficit hyperactivity disorder, unspecified type; F32.9 Major depressive disorder, single episode, unspecified; Z88.5 Allergy status to narcotic agent; Z77.22 Contact with and (suspected) exposure to environmental tobacco smoke (acute) (chronic); Z90.89 Acquired absence of other organs
CPT/HCPCS: 99283

== ENCOUNTER 2019-11-24 23:38 | Observation (INO) | payer SELFPAY ==
[~2019-11-24] VITALS: Ht 157.5 cm; Wt 43.3 kg
[~2019-11-24 23:38] MED LIST changes: +AMOX500C2 PO; -OMEP-280 PO; +OMEP20CA18 PO; +OXC5T PO
[2019-11-24] MEDS ORDERED: LACTATED RINGERS 1,000 ML IV ONE (23:44)
[2019-11-25] VITALS (12 sets, daily range): BP systolic 90–106; BP diastolic 50–93
[2019-11-25 00:18] LABS: BASOPHILS % (AUTO) 1 % (0-10); EOSINOPHILS % (AUTO) 0 % (0-10); HEMATOCRIT 43 % (35-52); HEMOGLOBIN 14.4 G/DL (11.5-16.0); LYMPHOCYTES # (AUTO) 1.5 X 10^3 (1.0-4.0); LYMPHOCYTES % (AUTO) 30 % (12-44); MEAN CORPUSCULAR HEMOGLOBIN 29 PG (25-34); MEAN CORPUSCULAR HGB CONC 33 G/DL (32-36); MEAN CORPUSCULAR VOLUME 86 FL (80-99); MEAN PLATELET VOLUME 9.8 FL (7.4-10.4); MONOCYTES # (AUTO) 0.4 X 10^3 (0.0-1.0); MONOCYTES % (AUTO) 8 % (0-12); NEUTROPHILS # (AUTO) 3.1 X 10^3 (1.8-7.8); NEUTROPHILS % (AUTO) 61 % (42-75); PLATELET COUNT 268 10^3/uL (130-400); RED CELL DISTRIBUTION WIDTH 14.2 % (10.0-14.5)
--- NOTE | 2019-11-25 00:31 | ED Psychosocial ---
General Chief Complaint: Suicidal Ideation Risk Stated Complaint: SUICIDAL Nursing Triage Note: PT TO ROOM 08 VIA EMS WITH C/O SUICIDAL THOUGHTS. PER EMS PT HAD SENT TEXT MESSAGES STATING SUICIDAL THOUGHTS. PT WILL ANSWER QUESTIONS BUT DOES NOT SPEAK MUCH. Source: patient, EMS Exam Limitations: no limitations History of Present Illness Date Seen by Provider: Nov 25, 2019 Time Seen by Provider: 23:38 Initial Comments This 24-year-old young lady presents to the emergency room via EMS after her boyfriend called emergency services. He reportedly was concerned about suicidal expressions she made in text messages. She also referenced a plan to obtain a gun. This history is obtained via EMS. Patient is not willing to talk at this time. She does follow some instructions but will not answer most questions. She reportedly took olanzapine 10 mg just prior to arrival. I do not see in the record that olanzapine has been prescribed to her. According to review of her chart she has a history of ADD/ADHD and depression. I do not see any prior visits for psychiatric problems. Allergies and Home Medications Allergies Coded Allergies: acetaminophen (Verified Allergy, Severe, 08/25/18) ondansetron HCl (Verified Allergy, Intermediate, 08/25/18) Home Medications No Active Prescriptions or Reported Meds Patient Home Medication List Home Medication List Reviewed: Yes Review of Systems Constitutional: no symptoms reported EENTM: no symptoms reported Respiratory: no symptoms reported Cardiovascular: no symptoms reported Gastrointestinal: no symptoms reported Genitourinary: no symptoms reported : No Musculoskeletal: no symptoms reported Skin: no symptoms reported Psychiatric/Neurological: See HPI Past Loezmxb-Llbjgi-Eedjgo Hx Past Med/Social Hx: Reviewed Nursing Past Med/Soc Hx Patient Social History Alcohol Use: Denies Use Recreational Drug Use: No Smoking Status: Never a Smoker Type Used: Cigarettes 2nd Hand Smoke Exposure: Yes Recent Foreign Travel: No Contact w/Someone Who Travel: No Recent Infectious Disease Expo: No Recent Hopitalizations: No Physical Abuse: No Sexual Abuse: No Mistreated: No Fear: No Seasonal Allergies Seasonal Allergies: Yes Past Medical History Surgeries: Yes (wisdom teeth) Gallbladder, Tonsillectomy Respiratory: Yes Asthma Cardiac: No Neurological: No Reproductive Disorders: Yes (irregular menstrual cycles) Female Reproductive Disorders: Menstrual Problems, Endometriosis Genitourinary: No Gastrointestinal: Yes Gastroesophageal Reflux, Ulcer Musculoskeletal: No Endocrine: No HEENT: No Cancer: No Psychosocial: Yes ADD/ADHD, Depression Integumentary: No Blood Disorders: No Family Medical History No Pertinent Family Hx Physical Exam Vital Signs - First Documented 11/24/19 11/25/19 23:45 03:01 Temp 36.2 Pulse 98 Resp 17 B/P (MAP) 112/73 (86) Pulse Ox 98 O2 Delivery Room Air Capillary Refill : Less Than 3 Seconds Height, Weight, BMI Height: 5'2.00" Weight: 104lbs. 4.0oz. 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 Does not answer most questions.) Appearance/Memory: disheveled Behavior/Eye Contact: avoids eye contact, refused to answer Skin: normal color, warm/dry Progress/Results/Core Measures Results/Orders Lab Results Laboratory Tests Test 11/25/19 00:06 Range/Units White Blood Count 5.0 4.3-11.0 10^3/uL Red Blood Count 5.01 4.35-5.85 10^6/uL Hemoglobin 14.4 11.5-16.0 G/DL Hematocrit 43 35-52 % Mean Corpuscular Volume 86 80-99 FL Mean Corpuscular Hemoglobin 29 25-34 PG Mean Corpuscular Hemoglobin Concent 33 32-36 G/DL Red Cell Distribution Width 14.2 10.0-14.5 % Platelet Count 268 130-400 10^3/uL Mean Platelet Volume 9.8 7.4-10.4 FL Neutrophils (%) (Auto) 61 42-75 % Lymphocytes (%) (Auto) 30 12-44 % Monocytes (%) (Auto) 8 0-12 % Eosinophils (%) (Auto) 0 0-10 % Basophils (%) (Auto) 1 0-10 % Neutrophils # (Auto) 3.1 1.8-7.8 X 10^3 Lymphocytes # (Auto) 1.5 1.0-4.0 X 10^3 Monocytes # (Auto) 0.4 0.0-1.0 X 10^3 Eosinophils # (Auto) 0.0 0.0-0.3 10^3/uL Basophils # (Auto) 0.0 0.0-0.1 10^3/uL Sodium Level 140 135-145 MMOL/L Potassium Level 3.7 3.6-5.0 MMOL/L Chloride Level 108 H 98-107 MMOL/L Carbon Dioxide Level 18 L 21-32 MMOL/L Anion Gap 14 5-14 MMOL/L Blood Urea Nitrogen 10 7-18 MG/DL Creatinine 0.77 0.60-1.30 MG/DL Estimat Glomerular Filtration Rate > 60 BUN/Creatinine Ratio 13 Glucose Level 104 70-105 MG/DL Calcium Level 9.5 8.5-10.1 MG/DL Corrected Calcium 8.5-10.1 MG/DL Total Bilirubin 0.5 0.1-1.0 MG/DL Aspartate Amino Transf (AST/SGOT) 16 5-34 U/L Alanine Aminotransferase (ALT/SGPT) 9 0-55 U/L Alkaline Phosphatase 58 40-136 U/L Total Protein 7.4 6.4-8.2 GM/DL Albumin 4.7 H 3.2-4.5 GM/DL TSH [place] Testing 1.88 0.35-4.94 UIU/ML Serum Test, Qualitative NEGATIVE NEGATIVE Salicylates Level < 5.0 L 5.0-20.0 MG/DL Acetaminophen Level < 10 L 10-30 UG/ML Serum Alcohol < 10 <10 MG/DL My Orders Orders - SMITH DIAZ MD Ua Culture If Indicated (11/24/19 23:44) Cbc With Automated Diff (11/24/19 23:44) Comprehensive Metabolic Panel (11/24/19 23:44) Alcohol (11/24/19 23:44) Drug Screen Stat (Urine) (11/24/19:44) Acetaminophen (11/24/19 23:44) Salicylate (11/24/19 23:44) Ekg Tracing (11/24/19 23:44) Ed Iv/Invasive Line Start (11/24/19:44) Monitor-Rhythm Ecg Trace Only (11/24/19 23:44) Bh Status Checks/Observation Q15M (11/24/19 23:44) Ed Iv/Invasive Line Start (11/24/19 23:44) Lactated Ringers (Lr 1000 Ml Iv Solution (11/24/19 23:44) Hcg,Qualitative Serum (11/24/19 23:44) Thyroid Analyzer (11/25/19 00:06) Lactated Ringers (Lr 1000 Ml Iv Solution (11/25/19 02:23) Lactated Ringers (Lr 1000 Ml Iv Solution (11/25/19 02:19) Medications Given in ED Vital Signs/I&O Blood Pressure Mean: 86 Progress Progress Note #1: Progress Note Patient has had minimal verbalization since arriving to the ER. She was able to ambulate to the restroom to provide a urine sample with assistance. She was a little unsteady on her feet. She refused to talk to this provider. She would not talk to EMS either. She did ask nurses for a blanket but otherwise has not been talking. Workup is essentially unremarkable. She is easily arousable to voice. At this point I am unsure if she is simply refusing to talk or is not talking because she is somnolent from ingested substances. She has received a liter of IV fluid. She has had some hypotensive measurements because of position (curled in the position with arms bent). Blood pressure is normal when her arm is straightened and she lies supine. Case was discussed with Dr. Guerra who agrees with admission to be observed the rest of the night. Progress Note #2: Time: 02:27 Progress Note Systolic blood pressures are running in the 80s at present despite repositioning. Patient is still unresponsive but somnolent. A review of her historical blood pressures notes that she typically runs in the 90-100 range systolic. We will give another liter of LR to support her blood pressures. She is being admitted to the ICU. Progress Note #3: Time: 03:00 Progress Note Patient ambulated to the restroom again with assistance prior to transfer to the ICU. She was able to walk on her own power but was a bit wobbly. Initial ECG Impression Date: Nov 25, 2019 Initial ECG Impression Time: 00:23 Initial ECG Rate: 123 Initial ECG Rhythm: S.Tach Comment Sinus tachycardia with no ST elevation or depression. No abnormal intervals or axis deviation. Departure Communication (Admissions) Time/Spoke to Admitting Phy: 01:50 Dr. Guerra Impression Primary Impression: Suicidal ideation Additional Impression: Altered mental status Qualified Codes: R41.82 - Altered mental status, unspecified Disposition: ADMITTED INPATIENT Condition: Stable Admissions Decision to Admit Reason: Admit from ER (General) Decision to Admit/Date: Nov 25, 2019 Time/Decision to Admit Time: 01:50 Departure-Patient Inst. Referrals: ALEJANDRA MORENO MD (PCP/Family) Primary Care Physician Patient Instructions: OUTPT MENTAL HEALTH SERVICES Scripts No Active Prescriptions or Reported Meds SMITH DIAZ MD Nov 25, 2019 00:31
[2019-11-25 00:38] LABS: ALBUMIN 4.7 GM/DL (3.2-4.5); CHLORIDE 108 MMOL/L (98-107); POTASSIUM 3.7 MMOL/L (3.6-5.0); SODIUM 140 MMOL/L (135-145)
[2019-11-25 00:39] LABS: CALCIUM 9.5 MG/DL (8.5-10.1)
[2019-11-25 00:40] LABS: GLUCOSE 104 MG/DL (70-105)
[2019-11-25 00:41] LABS: CARBON DIOXIDE 18 MMOL/L (21-32); TOTAL PROTEIN 7.4 GM/DL (6.4-8.2)
[2019-11-25 00:42] LABS: BILIRUBIN,TOTAL 0.5 MG/DL (0.1-1.0)
[2019-11-25 00:44] LABS: ALKALINE PHOSPHATASE 58 U/L (40-136); CREATININE SERUM 0.77 MG/DL (0.60-1.30); GFR ESTIMATED > 60
[2019-11-25 00:46] LABS: BUN/CREATININE RATIO 13
[2019-11-25 00:47] LABS: ALANINE AMINOTRANSFERASE 9 U/L (0-55); SALICYLATE < 5.0 MG/DL (5.0-20.0)
[2019-11-25 00:52] LABS: ACETAMINOPHEN < 10 UG/ML (10-30)
[2019-11-25 01:07] LABS: TSH (THYROID ANALYZER) 1.88 UIU/ML (0.35-4.94)
[2019-11-25 01:27] LABS: COLOR,URINE YELLOW
[2019-11-25 01:28] LABS: CLARITY,URINE SL CLOUDY; GLUCOSE, URINE (UA) NEGATIVE (NEGATIVE); KETONES,URINE 2+ (NEGATIVE); NITRITE,URINE NEGATIVE (NEGATIVE); PH,URINE 5.5 (5-9); PROTEIN,URINE NEGATIVE (NEGATIVE)
[2019-11-25 01:29] LABS: BILIRUBIN,URINE 1+ (NEGATIVE); LEUKOCYTE ESTERASE ,URINE NEGATIVE (NEGATIVE)
[2019-11-25 01:35] LABS: BACTERIA,URINE TRACE /HPF
[2019-11-25 01:37] LABS: AMPHETAMINE SCREEN, URINE NEGATIVE (NEGATIVE); BARBITURATE SCREEN URINE NEGATIVE (NEGATIVE); BENZODIAZEPINES SCREEN URINE NEGATIVE (NEGATIVE); CANNABINOID SCREEN, URINE NEGATIVE (NEGATIVE); COCAINE SCREEN URINE NEGATIVE (NEGATIVE); METHADONE STAT NEGATIVE (NEGATIVE); METHAMPHETAMINE SCREEN URINE S NEGATIVE (NEGATIVE); OPIATE SCREEN URINE NEGATIVE (NEGATIVE); OXYCODONE STAT NEGATIVE (NEGATIVE); PROPOXYPHENE STAT NEGATIVE (NEGATIVE); TRICYCLIC ANTIDEPRESSANTS SCRE NEGATIVE (NEGATIVE)
[2019-11-25] MEDS ORDERED: LACTATED RINGERS 1,000 ML IV ONE ×2 (02:19→02:23)
--- NOTE | 2019-11-25 02:45 | NUR ---
SOME SBP<[address] DIAZ NOTIFIED AND AWARE. AT THIS TIMES PT WAS LAYING ON SIDE AND SLEEPING.
--- NOTE | 2019-11-25 03:17 | NUR ---
PT AWAKE BUT WONT RESPOND TO ADMISSION QUESTIONS. MULTIPLE ATTEMPTS TRIED. ADMISSION INFO COMPLETED BY RECALL WHEN AVAILABLE. WILL TRY AGAIN WHEN PT MORE WILLING TO COOPERATE.
[2019-11-25] MEDS ORDERED: LACTATED RINGERS 1,000 ML IV SCH (03:45)
--- NOTE | 2019-11-25 09:35 | NUR ---
PER DR. SPARKS NOTIFIED [facility] FOR EVALUATION OF PATIENT. SAVE LINE KOFI PETERSON CAME TO FACILITY ET LEFT RECOMMENDATIONS FOR PATIENT TO GO TO OUTPATIENT TREATMENT, APPOINTMENT MADE. PATIENT AGREED TO KOFI PETERSON TO FOLLOW UP WITH OUTPATIENT APPOINTMENT. NOTIFIED DR. SPARKS.
--- NOTE | 2019-11-25 10:39 | NUR ---
UNABLE TO SPEAK WITH THE PT AT THIS TIME (THE SITTER AND I TRIED TO GET HER TO ANSWER QUESTIONS BUT SHE WOULDNT) BUT I DID GO THRU THE EXT MED HISTORY, CALLED AL AND HER PCP TO COMPLETE THE MED REC THERE WERE NO MEDS TO LIST TO I SET THE PROFILE TO NO MEDS
--- NOTE | 2019-11-25 11:04 | Short Stay Summary ---
HPI History of Present Illness: 24 yo F that was admitted after having suicidal ideation. The patient's boyfriend called and patient was brought in after she stated that she had a loaded gun and she stated that she took some pills. Patient was not wanting to answer any questions this AM but then finally decided to when she heard about possible psych transfer. Patient states that she had previously taken pills 2 years ago and required psych transfer at this time. She tells me that she took 2 pills of her antidepressant and she did not have intentions to kill herself. She did affirm that she has a gun at her house and she does have ammunition but that she never had the gun out yesterday. She denies anything new happening. No fi ghts or disagreements with anyone. Denies any previous medical problems other then depression. States that her youngest son is 10 months old and states that it has not changed in the post period. Source: patient Exam Limitations: no limitations Date seen by provider: Nov 25, 2019 Time Seen by Provider: 07:55 Attending Physician Baylee Guerra MD PCP SelfAlcides MD Consult Date of Admission Nov 25, 2019 at 02:00 Home Medications Home Medications Reviewed patient Home Medication Reconciliation performed by pharmacy medication reconciliations electrical power station technician and/or nursing. Patients Allergies have been reviewed. Allergies Coded Allergies: acetaminophen (Verified Allergy, Severe, 08/25/18) ondansetron HCl (Verified Allergy, Intermediate, 08/25/18) CAX-Ydzlug-Pnzivo Hx Patient Social History Living Status: Lives at home with kids and BF Alcohol Use: Denies Use Recreational Drug Use: No Smoking Status: Never a Smoker Type Used: Cigarettes 2nd Hand Smoke Exposure: Yes Recent Foreign Travel: No Contact w/other who traveled: No Recent Hopitalizations: No Recent Infectious Disease Expo: No Past Medical History Depression Family Medical History Significant Family History: No Pertinent Family Hx Review of Systems (CHC) Constitutional: no symptoms reported; No chills, No fever, No malaise EENTM: no symptoms reported; No mouth pain, No nose congestion, No nose pain Respiratory: no symptoms reported; No cough, No dyspnea on exertion, No short of breath Cardiovascular: no symptoms reported; No chest pain, No edema, No palpitations Gastrointestinal: no symptoms reported; No abdominal pain, No constipation, No diarrhea, No loss of appetite, No melena, No nausea, No vomiting Genitourinary: no symptoms reported; No dysuria, No frequency, No hematuria Musculoskeletal: no symptoms reported; No back pain, No joint pain, No muscle pain Skin: no symptoms reported; No lesions, No rash Psychiatric/Neurological: Anxiety, Depressed Reviewed Test Results Reviewed Test Results Lab Laboratory Tests Test 11/25/19 00:06 Range/Units White Blood Count 5.0 4.3-11.0 10^3/uL Red Blood Count 5.01 4.35-5.85 10^6/uL Hemoglobin 14.4 11.5-16.0 G/DL Hematocrit 43 35-52 % Mean Corpuscular Volume 86 80-99 FL Mean Corpuscular Hemoglobin 29 25-34 PG Mean Corpuscular Hemoglobin Concent 33 32-36 G/DL Red Cell Distribution Width 14.2 10.0-14.5 % Platelet Count 268 130-400 10^3/uL Mean Platelet Volume 9.8 7.4-10.4 FL Neutrophils (%) (Auto) 61 42-75 % Lymphocytes (%) (Auto) 30 12-44 % Monocytes (%) (Auto) 8 0-12 % Eosinophils (%) (Auto) 0 0-10 % Basophils (%) (Auto) 1 0-10 % Neutrophils # (Auto) 3.1 1.8-7.8 X 10^3 Lymphocytes # (Auto) 1.5 1.0-4.0 X 10^3 Monocytes # (Auto) 0.4 0.0-1.0 X 10^3 Eosinophils # (Auto) 0.0 0.0-0.3 10^3/uL Basophils # (Auto) 0.0 0.0-0.1 10^3/uL Sodium Level 140 135-145 MMOL/L Potassium Level 3.7 3.6-5.0 MMOL/L Chloride Level 108 H 98-107 MMOL/L Carbon Dioxide Level 18 L 21-32 MMOL/L Anion Gap 14 5-14 MMOL/L Blood Urea Nitrogen 10 7-18 MG/DL Creatinine 0.77 0.60-1.30 MG/DL Estimat Glomerular Filtration Rate > 60 BUN/Creatinine Ratio 13 Glucose Level 104 70-105 MG/DL Calcium Level 9.5 8.5-10.1 MG/DL Corrected Calcium 8.5-10.1 MG/DL Total Bilirubin 0.5 0.1-1.0 MG/DL Aspartate Amino Transf (AST/SGOT) 16 5-34 U/L Alanine Aminotransferase (ALT/SGPT) 9 0-55 U/L Alkaline Phosphatase 58 40-136 U/L Total Protein 7.4 6.4-8.2 GM/DL Albumin 4.7 H 3.2-4.5 GM/DL TSH [place] Testing 1.88 0.35-4.94 UIU/ML Serum Test, Qualitative NEGATIVE NEGATIVE Salicylates Level < 5.0 L 5.0-20.0 MG/DL Acetaminophen Level < 10 L 10-30 UG/ML Serum Alcohol < 10 <10 MG/DL Physical Exam-(CHC) Physical Exam Vital Signs VS - Last 72 Hours, by Label 11/24/19 11/25/19 11/25/19 11/25/19 23:45 03:01 03:05 03:06 Temp 36.2 37.0 37.0 Pulse 98 99 114 113 Resp 17 16 12 B/P (MAP) 112/73 (86) 103/60 106/93 (97) Pulse Ox 98 99 O2 Delivery Room Air Room Air Room Air 11/25/19 11/25/19 11/25/19 11/25/19 03:15 03:28 03:30 03:45 Pulse 105 97 95 Resp 13 15 18 B/P (MAP) 100/89 (93) 100/66 (77) 104/61 (75) Pulse Ox 98 99 97 97 O2 Delivery Room Air Room Air Room Air Room Air 11/25/19 11/25/19 11/25/19 11/25/19 04:02 04:30 05:00 06:00 Pulse 86 87 85 75 Resp 10 9 17 14 B/P (MAP) 92/69 (77) 97/65 (76) 97/57 (70) 93/52 (66) Pulse Ox 97 97 97 97 O2 Delivery Room Air Room Air Room Air Room Air 11/25/19 11/25/19 11/25/19 11/25/19 07:00 07:00 07:53 08:00 Pulse 67 73 66 Resp 15 15 B/P (MAP) 91/50 (64) 90/54 (66) Pulse Ox 97 97 98 O2 Delivery Room Air Room Air Room Air 11/25/19 09:00 Pulse 82 Resp 12 B/P (MAP) Pulse Ox 100 O2 Delivery Room Air Capillary Refill : Less Than 3 Seconds General Appearance: WD/WN, no apparent distress, thin HEENT: PERRL/EOMI Neck: non-tender, full range of motion, supple Respiratory: chest non-tender, lungs clear, normal breath sounds, no respiratory distress, no accessory muscle use Cardiovascular: normal peripheral pulses, regular rate, rhythm, no edema, no murmur Gastrointestinal: normal bowel sounds, non tender, soft, no organomegaly Back: no CVA tenderness, no vertebral tenderness Extremities: normal range of motion, non-tender, normal inspection, no pedal edema, no calf tenderness, normal capillary refill Neurologic/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: 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, alert, normal mood/affect, oriented x 3, depressed affect Skin: normal color, warm/dry Lymphatic: no adenopathy Short Stay Diagnosis Discharge Diagnosis-Short Stay Admission Diagnosis Suicidal Ideation Final Discharge Diagnosis Same Conclusion Plan See problem list Was the Problem List Reviewed?: Yes Clinical Quality Measures DVT/VTE Risk/Contraindication: Risk Factor Score Per Nursin RFS Level Per Nursing on Admit: 2=Moderate Assessment/Plan Assessment/Plan Admission Status: Observation (1) Suicidal ideation Status: Acute Assessment & Plan: - patient denies any thoughts of wanting to hurt herself this AM, Will have [facility] screener evaluate patient, she does not desire inpatient psych treatment at this time BAYLEE GUERRA MD Nov 25, 2019 11:04
--- NOTE | 2019-11-25 11:06 | Discharge Summary ---
Discharge [facility] Reconcile Patient Problems Problems Reviewed?: Yes Discharge Medications New, Converted or Re-Newed RX: Other Medication Profile: No Active Prescriptions or Reported Meds Patient Instructions Goal/Follow Up Appt: Patient to have outpatient flian Activity & Diet Discharge Diet: No Restrictions Activity as Tolerated: Yes BAYLEE SPARKS MD Nov 25, 2019 11:06
--- NOTE | 2019-11-25 12:05 | NUR ---
CM/SS: Unable to visit with pt as per consult related to suicidal ideation Plan: Pt will return home and follow up with outpatient mental health service through [facility] Summary: This worker was unable to talk with pt. This worker received an update from Dr Guerra. She reports she had notified [facility] line [phone] to talk with pt. Abdelrahman Lomas, from [facility] came to talk with pt. Pt was more cooperative with talking with Abdelrahman. Pt was open going to Outpatient services with Mental Health. Appointment made. This worker verified with RN that worked with pt to determine if pt will have follow up with [facility] or [facility] as the facesheet indicated she lives in [place]. RN reports that pt lived in [place] and the facesheet is incorrect. Pt would only cooperate and talk with Abdelrahman and give him the current address. Outpatient services will be through [facility].
== END 2019-11-25 11:55 | disposition home or self-care (01) ==
LOC: EDUNIT# 23:38 → ER 23:38 → ICU 11-25 02:00
PROVIDERS: ADMIT Family Medicine; ATTEND Family Medicine
DX: R45.851 Suicidal ideations (principal); R41.82 Altered mental status, unspecified; K21.9 Gastro-esophageal reflux disease without esophagitis; J45.909 Unspecified asthma, uncomplicated; F90.9 Attention-deficit hyperactivity disorder, unspecified type; F32.9 Major depressive disorder, single episode, unspecified; Z77.22 Contact with and (suspected) exposure to environmental tobacco smoke (acute) (chronic); Z88.6 Allergy status to analgesic agent; Z88.8 Allergy status to other drugs, medicaments and biological substances; Z90.89 Acquired absence of other organs
CPT/HCPCS: 36415; 80053; 80306; 80320; 80329; 81000; 84443; 84703; 85025; 87081; 93005; 93041; 96360; G0378

== ENCOUNTER 2020-01-23 19:54 | Emergency (ER) | payer SELFPAY ==
[~2020-01-23] VITALS: Ht 157 cm; Wt 43.3 kg
[2020-01-23 20:20] LABS: BILIRUBIN,URINE NEGATIVE (NEGATIVE); CLARITY,URINE CLEAR; COLOR,URINE ORANGE; GLUCOSE, URINE (UA) TRACE (NEGATIVE); KETONES,URINE NEGATIVE (NEGATIVE); LEUKOCYTE ESTERASE ,URINE TRACE (NEGATIVE); NITRITE,URINE POSITIVE (NEGATIVE); PROTEIN,URINE TRACE (NEGATIVE)
--- NOTE | 2020-01-23 20:27 | ED GU-Female ---
General Chief Complaint: Abdominal/GI Problems Stated Complaint: L SIDE PELVIC PAIN/VOMITING Nursing Triage Note: pt c/o left sided abdominal pain, vomiting, sensitivity to smells, and sx of UTI. pt states these sx are similar to her previous pregnancies and states there is a chance of . LMP was 12.19.2019. Nursing Sepsis Screen: No Definite Risk Source: patient History of Present Illness Date Seen by Provider: Jan 23, 2020 Time Seen by Provider: 20:01 Initial Comments PT ARRIVES VIA POV STATES SHE HAS BEEN HAVING UTI SYMPTOMS FOR THE LAST WEEK--PAIN, BURNING, URGENCY, FREQUENCY HAS TAKEN OTC AZO WITHOUT IMPROVEMENT HAS HAD MULTIPLE UTI'S IN THE PAST AND THIS IS THE SAME ALSO C/O BEING LATE ON HER PERIOD--LMP 12/19/19--NORMAL. NO CONTROL ALSO C/O NAUSEA AND VOMITED 8 TIMES TODAY AT WORK--WORKS AT [employer] ALSO STATES SHE IS SENSITIVE TO SMELLS ALSO C/O LLQ PAIN NO DIARRHEA NO FEVER NO COUGH/URI SYMPTOMS OR SHORTNESS OF BREATH NO KNOWN EXPOSURE TO COVID-19 STATES ALL OF THESE SYMPTOMS ARE EXACTLY THE SAME WHEN SHE HAS BEEN IN THE PAST, BUT HAS NOT DONE A HOME TEST OR SOUGHT CARE BY HER PCP. PCP: DR. MORENO [place] Allergies and Home Medications Allergies Coded Allergies: acetaminophen (Verified Allergy, Severe, 08/25/18) ondansetron HCl (Verified Allergy, Intermediate, 08/25/18) Home Medications Nitrofurantoin Monohyd/M-Cryst 100 Mg Capsule, 1 TAB PO BID Prescribed by: COURT GUADARRAMA on 01/23/202040 Phenazopyridine HCl 200 Mg Tablet, 1 TAB PO TID Prescribed by: COURT GUADARRAMA on 01/23/202040 Promethazine HCl 25 Mg Supp.rect, 25 MG RC Q6 Prescribed by: COURT GUADARRAMA on 01/23/202040 Patient Home Medication List Home Medication List Reviewed: Yes Review of Systems Review of Systems Constitutional: no symptoms reported; No chills, No diaphoresis, No fever EENTM: no symptoms reported; No nose congestion, No throat pain Respiratory: no symptoms reported; No cough, No short of breath Cardiovascular: no symptoms reported Gastrointestinal: see HPI, abdominal pain; No constipation, No diarrhea; nausea, vomiting Genitourinary: see HPI, burning, dysuria, frequency, pain, urgency LMP: December 19, 2019 Musculoskeletal: no symptoms reported; No back pain Skin: no symptoms reported; No rash Psychiatric/Neurological: No Symptoms Reported Endocrine: No Symptoms Reported Hematologic/Lymphatic: No Symptoms Reported Past Ibxlotk-Ugwlhv-Hsgzgh Hx Past Med/Social Hx: Reviewed and Corrections made Patient Social History Alcohol Use: Denies Use Recreational Drug Use: No Smoking Status: Current Everyday Smoker Type Used: Cigarettes 2nd Hand Smoke Exposure: Yes Recent Foreign Travel: No Contact w/Someone Who Travel: No Recent Infectious Disease Expo: No Recent Hopitalizations: No Seasonal Allergies Seasonal Allergies: Yes Past Medical History Surgeries: Yes (wisdom teeth) Gallbladder, Tonsillectomy Respiratory: Yes Asthma Cardiac: No Neurological: No Last Menstrual Period: December 19, 2019 Reproductive Disorders: Yes (irregular menstrual cycles) Female Reproductive Disorders: Menstrual Problems, Endometriosis Genitourinary: No Gastrointestinal: Yes (S/P CHOLECYSTECTOMY) Gastroesophageal Reflux, Ulcer, Gall Bladder Disease Musculoskeletal: No Endocrine: No HEENT: Yes (S/P TONSILLECTOMY) Tonsilitis Cancer: No Psychosocial: Yes ADD/ADHD, Depression Integumentary: No Blood Disorders: No Family Medical History No Pertinent Family Hx Physical Exam Vital Signs Vital Signs - First Documented 01/23/20 20:04 Pulse 95 Resp 20 B/P (MAP) 103/76 (85) Pulse Ox 98 O2 Delivery Room Air Capillary Refill : Less Than 3 Seconds Height, Weight, BMI Height: 5'2.00" Weight: 104lbs. 4.0oz. [id number]; 17.00 BMI Method:Stated General Appearance: no apparent distress, thin, other (TALKING ON SPEAKER ON CELL PHONE, REFUSES TO GET OFF PHONE . WALKS UPRIGHT AND MOVES WITHOUT DIFFICULTY. 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, no motor/sensory deficits, alert, normal mood/affect, oriented x 3 Skin: normal color, warm/dry Progress/Results/Core Measures Suspected Sepsis Recent Fever Within 48 Hours: No Infection Criteria Present: None New/Unexplained Altered Menta: No Sepsis Screen: No Definite Risk SIRS Temperature: Pulse: 95 Respiratory Rate: 20 Blood Pressure 103 /76 Mean: 85 Results/Orders Lab Results Laboratory Tests Test 01/23/20 20:00 Range/Units Urine Color ORANGE Urine Clarity CLEAR Urine pH 6.0 5-9 Urine Specific [place] 1.015 L 1.016-1.022 Urine Protein TRACE H NEGATIVE Urine Glucose (UA) TRACE H NEGATIVE Urine Ketones NEGATIVE NEGATIVE Urine Nitrite POSITIVE H NEGATIVE Urine Bilirubin NEGATIVE NEGATIVE Urine Urobilinogen 2.0 < = 1.0 MG/DL Urine Leukocyte Esterase TRACE H NEGATIVE Urine RBC (Auto) NEGATIVE NEGATIVE Urine RBC 0-2 /HPF Urine WBC 2-5 /HPF Urine Crystals PRESENT H /LPF Urine Amorphous Sediment RARE LESA URATES H /LPF Urine Bacteria TRACE /HPF Urine Casts NONE /LPF Urine Mucus NEGATIVE /LPF Urine Culture Indicated YES Urine Opiates Screen NEGATIVE NEGATIVE Urine Oxycodone Screen NEGATIVE NEGATIVE Urine Methadone Screen NEGATIVE NEGATIVE Urine Propoxyphene Screen NEGATIVE NEGATIVE Urine Barbiturates Screen NEGATIVE NEGATIVE Ur Tricyclic Antidepressants Screen NEGATIVE NEGATIVE Urine Phencyclidine Screen NEGATIVE NEGATIVE Urine Amphetamines Screen NEGATIVE NEGATIVE Urine Methamphetamines Screen NEGATIVE NEGATIVE Urine Benzodiazepines Screen NEGATIVE NEGATIVE Urine Cocaine Screen NEGATIVE NEGATIVE Urine Cannabinoids Screen NEGATIVE NEGATIVE My Orders Orders - COURT GUADARRAMA DO Urine Bedside (01/23/20 20:06) Drug Screen Stat (Urine) (01/23/20 20:06) Ua Culture If Indicated (01/23/20 20:06) Urine Culture (01/23/20 20:00) Ceftriaxone For Iv Use (Rocephin For I (01/23/20 20:45) Ketorolac Injection (Toradol Injection) (01/23/20 20:45) Promethazine Injection (Phenergan Injec (01/23/20 20:45) Diphenhydramine Injection (Benadryl Inje (01/23/20 20:45) Vital Signs/I&O 01/23/20 20:04 Pulse 95 Resp 20 B/P (MAP) 103/76 (85) Pulse Ox 98 O2 Delivery Room Air Capillary Refill : Less Than 3 Seconds Blood Pressure Mean: 85 Progress Note : Progress Note NO VOMITING DURING ER STAY Departure Impression Primary Impression: Urinary tract infection Disposition: HOME, SELF-CARE Condition: Stable Departure-Patient Inst. Referrals: SELF,ALEJANDRA GOLDMAN (PCP/Family) Primary Care Physician Patient Instructions: Urinary Tract Infection, Adult (DC) Add. Discharge Instructions: LOTS OF CLEAR LIQUIDS--WATER, BROTH, JELLO, GATORADE TYLENOL AND MOTRIN NEEDED FOR PAIN FOLLOW UP WITH YOUR DR IN 3-3 DAYS IF NO BETTER All discharge instructions reviewed with patient and/or family. Voiced understanding. Scripts Promethazine HCl (Promethazine Suppository) 25 Mg Supp.rect 25 MG RC Q6, #5 SUPP.RECT Prov: COURT GUADARRAMA DO 01/23/20 Phenazopyridine HCl (Pyridium) 200 Mg Tablet 1 TAB PO TID, #15 TAB Prov: COURT GUADARRAMA DO 01/23/20 Nitrofurantoin Monohyd/M-Cryst (Macrobid 100 mg Capsule) 100 Mg Capsule 1 TAB PO BID, #20 CAP Prov: COURT GUADARRAMA DO 01/23/20 [address] GUADARRAMA DO Jan 23, 2020 20:27
[2020-01-23 20:28] LABS: AMORPHOUS SEDIMENT,UR RARE AMOR URATES /LPF; BACTERIA,URINE TRACE /HPF; RBC,URINE 0-2 /HPF
[2020-01-23 20:40] LABS: AMPHETAMINE SCREEN, URINE NEGATIVE (NEGATIVE); BARBITURATE SCREEN URINE NEGATIVE (NEGATIVE); BENZODIAZEPINES SCREEN URINE NEGATIVE (NEGATIVE); CANNABINOID SCREEN, URINE NEGATIVE (NEGATIVE); COCAINE SCREEN URINE NEGATIVE (NEGATIVE); METHADONE STAT NEGATIVE (NEGATIVE); METHAMPHETAMINE SCREEN URINE S NEGATIVE (NEGATIVE); OPIATE SCREEN URINE NEGATIVE (NEGATIVE); OXYCODONE STAT NEGATIVE (NEGATIVE); PROPOXYPHENE STAT NEGATIVE (NEGATIVE); TRICYCLIC ANTIDEPRESSANTS SCRE NEGATIVE (NEGATIVE)
[2020-01-23] MEDS ORDERED: NITR-65 PO (20:41)
[2020-01-23] MEDS ORDERED: PHEN-640 PO (20:41)
[2020-01-23] MEDS ORDERED: PROM25SU44 RC (20:41)
[2020-01-23] MEDS ORDERED: cefTRIAXone FOR IV USE 1,000 MG in WATER (STERILE) FOR INJECTION 10 ML IV ONE (20:45)
[2020-01-23] MEDS ORDERED: KETOROLAC 30 MG/ML VIAL IVP ONE (20:45)
[2020-01-23] MEDS ORDERED: PROMETHAZINE INJ 25 MG/ML (PHENERGAN) AMP IVP ONE (20:45)
[2020-01-23] MEDS ORDERED: diphenhydrAMINE 50 MG/ML INJ (BENADRYL) IVP ONE (20:45)
[2020-01-23 21:20] VITALS: BP 122/80
--- OUTSIDE RECORDS SUMMARY | 2020-01-23 22:51 | XMS REPORT | Clinical Summary ---
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
--- OUTSIDE RECORDS SUMMARY | 2020-01-23 22:51 | XMS REPORT | Clinical Summary ---
Author Author [facility] Organization [facility] Address Unknown Phone Unavailable Care Team Providers Care Competitive Shopper Name Role Phone Ele Lima RN Unavailable Unavailable Cordell Wise MD PCP Emergency, Nurse RN Unavailable Unavailable Source Comments Some departments are not documenting in the electronic medical record. 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 Body Mass Index Plan of Treatment Health Maintenance Due Date Last Done Comments HPV VACCINES (1 - 2-dose 2005 series) HIV SCREENING 2009 DTAP/TDAP VACCINES (1 - 2012 Tdap) HEPATITIS C SCREENING 2012 PHYSICAL (COMPREHENSIVE) 2012 EXAM CERVICAL CANCER SCREENING 2015 INFLUENZA VACCINE 05/13/2020 Results Not on filefrom Last 3 Months Advance Directives 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 needed
--- OUTSIDE RECORDS SUMMARY | 2020-01-23 22:51 | XMS REPORT | Encounter Summary ---
Author Author [facility] Organization [facility] Address Unknown Phone Unavailable Care Team Providers Care Pattern Weaver Name Role Phone Alaina Rizzo RN PCP Unavailable Reason for Visit * Reason Comments Back Pain Encounter Details Care Team Description Date Type Department Eligio James PA-C [address] [place] [address] Thoracic myofascial strain, initial enco unter (Primary Dx) 06/01/2019 [facility] [address] [place], [place] [id number] Social History Date Tobacco Use Types Packs/Day [...] PA-C - 06/01/2019 10:19 PM CDT 06/01/2019 [facility] History Chief Complaint Patient presents with Back [...] pain since. Patient recently started working at [employer], where she freque ntly lifts 20 to [...] arm. 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 documented in [...]
--- OUTSIDE RECORDS SUMMARY | 2020-01-23 22:52 | XMS REPORT | Continuity of Care Document ---
Author Organization Unknown Address Unknown Phone Unavailable Allergies Active Description Code Type Severity Reaction Onset Reported/Identified Relationship to Patient Clinical Status Yes TYLENOL UNKNOWN UNKNOWN Yes ZOFRAN UNKNOWN UNKNOWN Yes acetaminophen [id number] Brett g Allergy Severe N/A 08/25/2018 Yes ondansetron HCl [id number] D rug Allergy Moderate N/A 08/25/2018 Medications There is no data. Problems Date Dx Coded Attending Type Code Diagnosis Diagnosed By 11/07/2012 MAITE FIORE MD, JUAN Scott 530.81 GERD 11/07/2012 JUAN MULLEN MD 783.22 UNDERWEIGHT 01/02/2013 EMILY GOLDMAN, SMITH T Ot 789.00 ABDOMINAL PAIN, UNSPECIFIED SITE 10/06/2013 RADHA BLACKMON DO S Ot 646.83 PREG COMPL NEC-ANTEPART 10/06/2013 RADHA BLACKMON DO S Ot 789.00 ABDOMINAL PAIN, UNSPECIFIED SITE 09/17/2014 TERRI BRYANT MD Ot 616.10 VAGINITIS NOS 09/17/2014 TERRI BRYANT MD Ot 625.9 FEM GENITAL SYMPTOMS NOS 09/17/2014 TERRI BRYANT MD Ot 626.2 EXCESSIVE MENSTRUATION 08/22/2015 CATHIE FINLEY MD, Ot K21. 9 GASTRO-ESOPHAGEAL REFLUX DISEASE WITHOUT 08/22/2015 CATHIE FINLEY MD Ot O47. 03 FALSE LABOR BEFORE 37 COMPLETED WEEKS OF 08/22/2015 CATHIE FINLEY MD Ot O99.613 DISEASES OF THE DGSTV SYS COMP 08/22/2015 CATHIE FINLEY MD, Ot Z3A. 34 34 WEEKS GESTATION OF 12/17/2016 MARIE ESPINOSA Ot N30.91 CYSTITIS, UNSPECIFIED WITH HEMATURIA 12/17/2016 MARIE ESPINOSA Ot R30.0 DYSURIA 12/20/2016 MONIQUE PA, MARIE L Ot N30.91 CYSTITIS, UNSPECIFIED WITH HEMATURIA 12/20/2016 [...] 19 WEEKS GESTATION OF 06/27/2017 SMITH DIAZ MD, Ot Z87.11 PERSONAL HISTORY OF PEPTIC ULCER DISEASE 06/27/2017 SMITH DIAZ MD, Ot Z90.89 ACQUIRED ABSENCE OF OTHER [...] 08/25/2018 LIZZETTE CABRERA APRN Ot F98 .8 OTH BEHAV/EMOTN DISORD W ONSET USLY OCCU 08/25/2018 LIZZETTE CABRERA APRN Ot J45.909 UNSPECIFIED ASTHMA, UNCOMPLICATED 08/25/2018 LIZZETTE CABRERA APRN Ot K21 .9 GASTRO-ESOPHAGEAL REFLUX DISEASE WITHOUT 08/25/2018 LIZZETTE CABRERA APRN Ot L29 .9 PRURITUS, UNSPECIFIED 08/25/2018 LIZZETTE CABRERA APRN Ot O21 .9 VOMITING OF , UNSPECIFIED 08/25/2018 LIZZETTE CABRERA APRN Ot O99.342 OTH MENTAL DISORDERS COMP , SEC 08/25/2018 LIZZETTE [...] APRN Ot J45.909 UNSPECIFIED ASTHMA, UNCOMPLICATED 08/27/2018 LIZZETTE CABRERA APRN Ot K21 .9 GASTRO-ESOPHAGEAL [...] UNSPECIFIED 08/31/2018 LIZZETTE CABRERA APRN Ot O99.342 OTH MENTAL DISORDERS COMP , SEC 08/31/2018 LIZZETTE [...] Ot Z90.89 ACQUIRED ABSENCE OF OTHER ORGANS 07/01/2019 GIANCARLO BENTLEY MD Ot F17.2 10 NICOTINE DEPENDENCE, CIGARETTES, UNCOMPL 07/01/2019 GIANCARLO BENTLEY MD Ot F32.9 MAJOR DEPRESSIVE DISORDER, SINGLE EPISOD 07/01/2019 GIANCARLO BENTLEY MD Ot F90.9 ATTENTION-DEFICIT HYPERACTIVITY DISORDER 07/01/2019 GIANCARLO BENTLEY MD Ot J45.9 09 UNSPECIFIED ASTHMA, UNCOMPLICATED 07/01/2019 GIANCARLO BENTLEY MD Ot K21.9 GASTRO-ESOPHAGEAL REFLUX DISEASE WITHOUT 07/01/2019 GIANCARLO BENTLEY MD Ot N92.6 IRREGULAR MENSTRUATION, UNSPECIFIED 07/01/2019 GIANCARLO BENTLEY MD Ot R10.2 PELVIC AND PERINEAL PAIN 07/01/2019 GIANCARLO BENTLEY MD Ot R11.2 NAUSEA WITH VOMITING, UNSPECIFIED 07/01/2019 GIANCARLO BENTLEY MD Ot Z88.6 ALLERGY STATUS TO ANALGESIC AGENT STATUS 07/01/2019 GIANCARLO BENTLEY MD Ot Z88.8 ALLERGY STATUS TO OTH DRUG/MEDS/BIOL SUB 07/01/2019 GIANCARLO BENTLEY MD Ot Z90.8 9 ACQUIRED ABSENCE OF OTHER ORGANS 07/03/2019 GIANCARLO BENTLEY MD Ot F17.2 10 NICOTINE DEPENDENCE, CIGARETTES, UNCOMPL 07/03/2019 GIANCARLO BENTLEY MD Ot F32.9 MAJOR DEPRESSIVE DISORDER, SINGLE EPISOD 07/03/2019 GIANCARLO BENTLEY MD Ot F90.9 ATTENTION-DEFICIT HYPERACTIVITY DISORDER 07/03/2019 GIANCARLO BENTLEY MD Ot J45.9 09 UNSPECIFIED ASTHMA, UNCOMPLICATED 07/03/2019 GIANCARLO BENTLEY MD Ot K21.9 GASTRO-ESOPHAGEAL REFLUX DISEASE WITHOUT 07/03/2019 GAINCARLO BENTLEY MD Ot N92.6 IRREGULAR MENSTRUATION, UNSPECIFIED 07/03/2019 GIANCARLO BENTLEY MD Ot R10.2 PELVIC AND PERINEAL PAIN 07/03/2019 GIANCARLO BENTLEY MD Ot R11.2 NAUSEA WITH VOMITING, UNSPECIFIED 07/03/2019 GIANCARLO BENTLEY MD Ot Z88.6 ALLERGY STATUS TO ANALGESIC AGENT STATUS 07/03/2019 GIANCARLO BENTLEY MD Ot Z88.8 ALLERGY STATUS TO OTH DRUG/MEDS/BIOL SUB 07/03/2019 GIANCARLO BENTLEY MD Ot Z90.8 9 ACQUIRED ABSENCE OF OTHER ORGANS 07/17/2019 GIANCARLO BENTLEY MD Ot F32.9 MAJOR DEPRESSIVE DISORDER, SINGLE EPISOD 07/17/2019 GIANCARLO BENTLEY MD Ot F90.9 ATTENTION-DEFICIT HYPERACTIVITY DISORDER 07/17/2019 GIANCARLO BENTLEY MD Ot J45.9 09 UNSPECIFIED ASTHMA, UNCOMPLICATED 07/17/2019 GIANCARLO BENTLEY MD Ot K06.8 OTH DISRD OF GINGIVA AND EDENTULOUS ALVE 07/17/2019 GIANCARLO BENTLEY MD Ot K08.8 9 OTHER SPECIFIED DISORDERS OF TEETH AND S 07/17/2019 GIANCARLO BENTLEY MD Ot K21.9 GASTRO-ESOPHAGEAL REFLUX DISEASE WITHOUT 07/17/2019 GIANCARLO BENTLEY MD Ot Z77.2 2 CNTCT W AND EXPSR TO ENVIRON TOBACCO SMO 07/17/2019 GIANCARLO BENTLEY MD Ot Z88.5 ALLERGY STATUS TO NARCOTIC AGENT STATUS 07/17/2019 GIANCARLO BENTLEY MD Ot Z90.8 9 ACQUIRED ABSENCE OF OTHER ORGANS 07/21/2019 GIANCARLO BENTLEY MD, Ot F32.9 MAJOR DEPRESSIVE DISORDER, SINGLE EPISOD 07/21/2019 GIANCARLO BENTLEY MD Ot F90.9 ATTENTION-DEFICIT HYPERACTIVITY DISORDER 07/21/2019 GIANCARLO BENTLEY MD Ot J45.9 09 UNSPECIFIED ASTHMA, UNCOMPLICATED 07/21/2019 GIANCARLO BENTLEY MD Ot K06.8 OTH DISRD OF GINGIVA AND EDENTULOUS ALVE 07/21/2019 GIANCARLO BENTLEY MD Ot K08.8 9 OTHER SPECIFIED DISORDERS OF TEETH AND S 07/21/2019 GIANCARLO BENTLEY MD Ot K21.9 GASTRO-ESOPHAGEAL REFLUX DISEASE WITHOUT 07/21/2019 GIANCARLO BENTLEY MD Ot Z77.2 2 CNTCT W AND EXPSR TO ENVIRON TOBACCO SMO 07/21/2019 GIANCARLO BENTLEY MD Ot Z88.5 ALLERGY STATUS TO NARCOTIC AGENT STATUS 07/21/2019 GIANCARLO BENTLEY MD Ot Z90.8 9 ACQUIRED ABSENCE OF OTHER ORGANS 09/30/2019 Asad Pringle W 920 CONTUSION OF FACE, SCALP, AND NECK EXCEPT EYE(S) 09/30/2019 Asad Pringle S00.33XA CONTUSION OF NOSE, INITIAL ENCOUNTER 11/25/2019 BAYLEE SPARKS MD Ot F32.9 MAJOR DEPRESSIVE DISORDER, SINGLE EPISOD 11/25/2019 CLARE GOLDMAN, BAYLEE Little Ot F90.9 ATTENTION-DEFICIT HYPERACTIVITY DISORDER 11/25/2019 BAYLEE SPARKS MD Ot J45.9 09 UNSPECIFIED ASTHMA, UNCOMPLICATED 11/25/2019 BAYLEE SPARKS MD Ot K21.9 GASTRO-ESOPHAGEAL REFLUX DISEASE WITHOUT 11/25/2019 BAYLEE SPARKS MD Ot R41.8 2 ALTERED MENTAL STATUS, UNSPECIFIED 11/25/2019 BAYLEE SPARKS MD Ot R45.8 51 SUICIDAL IDEATIONS 11/25/2019 BAYLEE SPARKS MD Ot Z77.2 2 CNTCT W AND EXPSR TO ENVIRON TOBACCO SMO 11/25/2019 BAYLEE SPARKS MD Ot Z88.6 ALLERGY STATUS TO ANALGESIC AGENT STATUS 11/25/2019 BAYLEE SPARKS MD Ot Z88.8 ALLERGY STATUS TO OTH DRUG/MEDS/BIOL SUB 11/25/2019 BAYLEE SPARKS MD Ot Z90.8 9 ACQUIRED ABSENCE OF OTHER ORGANS 11/25/2019 BAYLEE SPARKS MD Ot F32.9 MAJOR DEPRESSIVE DISORDER, SINGLE EPISOD 11/25/2019 BAYLEE SPARKS MD Ot F90.9 ATTENTION-DEFICIT HYPERACTIVITY DISORDER 11/25/2019 BAYLEE SPARKS MD Ot J45.9 09 UNSPECIFIED ASTHMA, UNCOMPLICATED 11/25/2019 BAYLEE SPARKS MD Ot K21.9 GASTRO-ESOPHAGEAL REFLUX DISEASE WITHOUT 11/25/2019 BAYLEE SPARKS MD Ot R41.8 2 ALTERED MENTAL STATUS, UNSPECIFIED 11/25/2019 BAYLEE SPARKS MD Ot R45.8 51 SUICIDAL IDEATIONS 11/25/2019 BAYLEE SPARKS MD Ot Z77.2 2 CNTCT W AND EXPSR TO ENVIRON TOBACCO SMO 11/25/2019 BAYLEE SPARKS MD R Ot Z88.6 ALLERGY STATUS TO ANALGESIC AGENT STATUS 11/25/2019 BAYLEE SPARKS MD Ot Z88.8 ALLERGY STATUS TO OTH DRUG/MEDS/BIOL SUB 11/25/2019 BAYLEE SPARKS MD R Ot Z90.8 9 ACQUIRED ABSENCE OF OTHER ORGANS Procedures Code [place] [address] URIN E TEST (IN- HOUSE) 11/07/2012 68878 UA W / CULTURE IF INDICATED 11/07/2012 [...] culture - 12/17/16 19:44 Bacterial urine culture [id number] NRG COLONY COUNT 10,000/ML - 100,000/ML NRG [...] culture - 02/08/17 19:30 Bacterial urine culture [id number] NRG COLONY COUNT 10,000/ML - 100,000/ML NRG [...] NRG Whole blood basic metabolic panel - 06/14 [...] Serum or plasma choriogonadotropin measurement (units/ volume) 899555 m[iU]/mL <5 Complete blood count (CBC) with [...] urine sediment by ligh t microscopy MOD LESA PHOSPHATE NRG HCG, QUANTITATIVE - 08/07/19 09:41 HCG, TOTAL, QN <2 mIU/mL NRG COVID-19 ([facility]) - 11/04/19 16:00 PATIENT SYMPTOMATIC? NOT GIVEN NRG SOURCE: NOT GIVEN NRG OVERALL RESULT: NOT DETECTED NOT DETE CTED SARS-CoV-2 RNA: NEGATIVE NEGATIVE ZARAGOZA-SARS RNA: NEGATIVE NEGATIVE Complete urinalysis with reflex to cultu re - 11/24/19 00:56 Urine color determination YELLOW NRG Urine clarity determination SL CLOUDY N RG Urine pH measurement by test strip 5.5 5-9 Specific gravity of urine by test strip >= 1.016-1.022 Urine protein assay by test strip, semi-quantitative NEGATIVE NEGATIVE Urine glucose detection by automated test strip NE GATIVE NEGATIVE Erythrocytes detection in urine sediment by light micr oscopy 2+ NEGATIVE Urine ketones detection by automated test strip 2+ NEGATIVE Urine nitrite detection by test strip NEGATIVE NEGATIVE Urine total bilirubin detection by test strip 1+ NEGATIVE Urine urobilinogen measurement by automated test strip (mass/volume) 1.0 mg/dL < = 1.0 Urine leukocyte esterase detection by dipstick NEG ATIVE NEGATIVE Automated urine sediment erythrocyte cou nt by microscopy (number/high power field) [HPF] NRG Automated urine sediment leukocyte count by microscopy (number/high power field) NONE NRG Bacteria detection in urine sediment by light microsco py TRACE NRG Squamous epithelial cells detection in u rine sediment by light microscopy 2-5 NRG Crystals detection in urine sediment by light microsco py NONE NRG Casts detection in urine sediment by light microscopy NONE NRG Mucus detection in urine sediment by light microscopy MODERATE NRG Complete urinalysis with reflex to culture NO NRG Urine drug screening test - 11/24/19 00: 56 Urine phencyclidine detection by screening method NEGATIVE NEGATIVE Urine benzodiazepines detection by screening method NEGATIVE NEGATIVE Urine cocaine detection NEGATIVE NEGATI VE Urine amphetamines detection by screening method N EGATIVE NEGATIVE Urine methamphetamine detection by screening method NEGATIVE NEGATIVE Urine cannabinoids detection by screening method N EGATIVE NEGATIVE Urine opiates detection by screening method NEGATI VE NEGATIVE Urine barbiturates detection NEGATIVE N EGATIVE Screening urine tricyclic antidepressants detection NEGATIVE NEGATIVE Urine methadone detection by screening method NEGA TIVE NEGATIVE Urine oxycodone detection NEGATIVE NEGA TIVE Urine propoxyphene detection NEGATIVE N EGATIVE Complete blood count (CBC) with automate d white blood cell (WBC) differential - 11/25/19 00:06 Blood leukocytes automated count (number/volume) 5.0 10*3/uL 4.3-11.0 Blood erythrocytes automated count (number/volume) 5.01 10*6/uL 4.35-5.85 Venous blood hemoglobin measurement (mass/volume) 14.4 g/dL 11.5-16.0 Blood hematocrit (volume fraction) 43 % 35-52 Automated erythrocyte mean corpuscular volume 86 [ foz_us] 80-99 Automated erythrocyte mean corpuscular h emoglobin (mass per erythrocyte) 29 pg 25-34 Automated erythrocyte mean corpuscular h emoglobin concentration measurement (mass/volume) 33 g/dL 32-36 Automated erythrocyte distribution width ratio 14. 2 % 10.0- 14.5 Automated blood platelet count (count/volume) 268 10*3/uL 130-400 Automated blood platelet mean volume measurement 9.8 [foz_us] 7.4-10.4 Automated blood neutrophils/100 leukocytes 61 % 42-75 Automated blood lymphocytes/100 leukocytes 30 % 12-44 Blood monocytes/100 leukocytes 8 % 0-12 Automated blood eosinophils/100 leukocytes 0 % 0-10 Automated blood basophils/100 leukocytes 1 % 0-10 Blood neutrophils automated count (number/volume) 3.1 10*3 1.8-7.8 Blood lymphocytes automated count (number/volume) 1.5 10*3 1.0-4.0 Blood monocytes automated count (number/volume) 0. 4 10*3 0.0-1.0 Automated eosinophil count 0.0 10*3/uL 0 .0-0.3 Automated blood basophil count (count/volume) 0.0 10*3/uL 0.0-0.1 Serum or plasma choriogonadotropin (preg nohemy test) detection - 11/25/19 00:06 Serum or plasma choriogonadotropin ( test) de tection NEGATIVE NEGATIVE Comprehensive metabolic panel - 11/25/19 00:06 Serum or plasma sodium measurement (moles/volume) 140 mmol/L 135-145 Serum or plasma potassium measurement (moles/volume) 3.7 mmol/L 3.6-5.0 Serum or plasma chloride measurement (moles/volume) 108 mmol/L 98-107 Carbon dioxide 18 mmol/L 21-32 Serum or plasma anion gap determination (moles/volume) 14 mmol/L 5-14 Serum or plasma urea nitrogen measurement (mass/volume ) 10 mg/dL 7-18 Serum or plasma creatinine measurement (mass/volume) 0.77 mg/dL 0.60-1.30 Serum or plasma urea nitrogen/creatinine mass ratio 13 NRG Serum or plasma creatinine measurement w ith calculation of estimated glomerular filtration rate > NRG Serum or plasma glucose measurement (mass/volume) 104 mg/dL 70-105 Serum or plasma calcium measurement (mass/volume) 9.5 mg/dL 8.5-10.1 Serum or plasma total bilirubin measurement (mass/volu me) 0.5 mg/dL 0.1-1.0 Serum or plasma alkaline phosphatase dolores surement (enzymatic activity/volume) 58 U/L 40-136 Serum or plasma aspartate aminotransfera se measurement (enzymatic activity/volume) 16 U/L 5-34 Serum or plasma alanine aminotransferase measurement (enzymatic activity/volume) 9 U/L 0-55 Serum or plasma protein measurement (mass/volume) 7.4 g/dL 6.4-8.2 Serum or plasma albumin measurement (mass/volume) 4.7 g/dL 3.2-4.5 Serum or plasma thyrotropin measurement by detection limit <=0.05 miu/l (units/volume) - 11/25/19 00:06 Serum or plasma thyrotropin measurement by detection limit <=0.05 miu/l (units/volume) 1.88 u[iU]/mL 0.35-4.94 Serum or plasma salicylates measurement (mass/volume) - 11/25/19 00:06 Serum or plasma salicylates measurement (mass/volume) < mg/dL 5.0-20.0 Serum or plasma acetaminophen measuremen t (mass/volume) - 11/25/19 00:06 Serum or plasma acetaminophen measurement (mass/volume ) < ug/mL 10-30 Serum or plasma ethanol measurement (mas s/volume) - 11/25/19 00:06 Serum or plasma ethanol measurement (mass/volume) < mg/dL <10 Methicillin resistant Staphylococcus aur eus (MRSA) screening culture - 11/25/19 03:10 Methicillin resistant Staphylococcus aureus (MRSA) scr eening culture NEG NRG Complete urinalysis with reflex to cultu re - 01/23/20 20:00 Urine color determination ORANGE NRG Urine clarity determination CLEAR NR G Urine pH measurement by test strip 6.0 5-9 Specific gravity of urine by test strip 1.015 1.016-1.022 Urine protein assay by test strip, semi-quantitative TRACE NEGATIVE Urine glucose detection by automated test strip TR CHELSY NEGATIVE Erythrocytes detection in urine sediment by light micr oscopy NEGATIVE NEGATIVE Urine ketones detection by automated test strip NE GATIVE NEGATIVE Urine nitrite detection by test strip POSITIVE NEGATIVE Urine total bilirubin detection by test strip NEGA TIVE NEGATIVE Urine urobilinogen measurement by automated test strip (mass/volume) 2.0 mg/dL < = 1.0 Urine leukocyte esterase detection by dipstick TRA CE NEGATIVE Automated urine sediment erythrocyte cou nt by microscopy (number/high power field) [HPF] NRG Automated urine sediment leukocyte count by microscopy (number/high power field) [HPF] NRG Bacteria detection in urine sediment by light microsco py TRACE NRG Crystals detection in urine sediment by light microsco py PRESENT NRG Casts detection in urine sediment by light microscopy NONE NRG Mucus detection in urine sediment by light microscopy NEGATIVE NRG Complete urinalysis with reflex to culture YES NRG Amorphous sediment detection in urine sediment by ligh t microscopy RARE LESA URATES NRG Urine drug screening test - 01/23/20 20: 00 Urine phencyclidine detection by screening method NEGATIVE NEGATIVE Urine benzodiazepines detection by screening method NEGATIVE NEGATIVE Urine cocaine detection NEGATIVE NEGATI VE Urine amphetamines detection by screening method N EGATIVE NEGATIVE Urine methamphetamine detection by screening method NEGATIVE NEGATIVE Urine cannabinoids detection by screening method N EGATIVE NEGATIVE Urine opiates detection by screening method NEGATI VE NEGATIVE Urine barbiturates detection NEGATIVE N EGATIVE Screening urine tricyclic antidepressants detection NEGATIVE NEGATIVE Urine methadone detection by screening method NEGA TIVE NEGATIVE Urine oxycodone detection NEGATIVE NEGA TIVE Urine propoxyphene detection NEGATIVE N EGATIVE Encounters ACCT No. Visit Date/Time Discharge Status Pt. Type Provider Facility Loc./Unit Complaint [id number] 11/07/2012 10:30:00 11/07/2012 23:59: 59 CLS Outpatient MAITE FIORE MD, JUAN Maldonado95 01/14/2020 16:00:00 01/14/2020 23:59:5 9 [facility] Outpatient SELF, ALEJANDRA Abrams [facility] [id number] 11/04/2019 14:00:00 Document Registration [id number] 08/07/2019 09:40:00 Document Registration [id number] 11/19/2018 14:00:00 Document Registration [id number] 11/13/2018 13:20:00 Document Registration [id number] 01/23/2020 19:55:00 21:22:00 DIS Emergency THIERRY DO, [facility] [place] [facility] ER L SIDE PELVIC PAIN/VOMI TING [id number] 11/24/2019 23:39:00 11:05:00 DIS Inpatient CLARE GOLDMAN, BAYLEE Little [facility] ICU SUICIDAL IDEATIONS,AMS [id number] 07/17/2019 18:14:00 19:40:00 DIS Emergency GIANCARLO BENTLEY MD [facility] ER FS MOUTH PAIN [id number] 07/01/2019 19:36:00 21:40:00 DIS Emergency GIANCARLO BENTLEY MD [facility] ER FS VOMITTING [id number] 08/25/2018 14:01:00 15:42:00 DIS Emergency LIZZETTE CABRERA APRN [facility] ER 17 WKS PREG/L SIDE SKIN BURNING/HX OF SHINGLES [id number] 07/08/2018 17:01:00 018 18:39:00 DIS Emergency ANNETTE GOLDMAN, TERRI Michaud [facility] ER 8 WKS PREG/ABD PAIN/DIZZINESS [id number] 02/13/2018 19:26:00 19:40:00 DIS Emergency AMARA ORDONEZ [facility] ER ABD PAIN [id number] 08/30/2017 12:27:00 14:20:00 DIS Outpatient TATY GOLDMAN, SHRUTHI Zuniga [facility] WSo ABDOMINAL PAIN [id number] 08/07/2017 13:45:00 017 14:45:00 DIS Outpatient [facility], VAGINAL DISCHARGE [id number] 06/27/2017 13:45:00 017 14:55:00 DIS Outpatient SHRUTHI POSEY MD [facility] ABD CRAMPING,N/ V [id number] 06/27/2017 10:56:00 017 13:44:00 DIS Emergency EMILY GOLDMAN, SMITH Batista [facility] ER ABD CRAMPING, 1 9 WKS 2 DAYS PG [id number] 02/08/2017 19:08:00 017 20:03:00 DIS Emergency EMILY GOLDMAN, SMITH Batista [facility] ER UPPER ABDOMINAL PAIN [id number] 12/17/2016 19:09:00 017 21:18:00 DIS Emergency MARIE ESPINOSA [facility] ER POSS UTI [id number] 08/21/2015 22:52:00 016 11:00:00 DIS Outpatient CATHIE FINLEY MD [facility] [id number] 09/17/2014 09:39:00 015 11:04:00 DIS Emergency TERRI BRYANT MD [facility] ER VAG PAIN/DISCHA RGE [id number] 10/06/2013 22:20:00 014 23:32:00 DIS Outpatient NEYMAR DORADHA S [facility], ABD PAIN [id number] 01/01/2013 21:34:00 013 02:10:00 DIS Emergency SMITH DIAZ MD [facility] ER ABD PAIN [id number] 09/30/2019 18:59:00 09/30/2019 20:10 :00 DIS Outpatient [facility] ER
== END 2020-01-23 21:22 | disposition home or self-care (01) ==
LOC: EDUNIT# 19:54 → ER 19:55
DX: N39.0 Urinary tract infection, site not specified (principal); F17.210 Nicotine dependence, cigarettes, uncomplicated; Z88.6 Allergy status to analgesic agent; Z88.8 Allergy status to other drugs, medicaments and biological substances
CPT/HCPCS: 80306; 81000; 84703; 87077; 87088; 87186

== ENCOUNTER 2020-05-02 17:04 | Emergency (ER) | payer SELFPAY ==
[~2020-05-02] VITALS: Ht 157.4 cm; Wt 47.1 kg
[~2020-05-02 17:04] MED LIST changes: +PROM25SU44 RC
[2020-05-02 17:35] LABS: BILIRUBIN,URINE NEGATIVE (NEGATIVE); CLARITY,URINE CLEAR; COLOR,URINE YELLOW; GLUCOSE, URINE (UA) NEGATIVE (NEGATIVE); KETONES,URINE NEGATIVE (NEGATIVE); LEUKOCYTE ESTERASE ,URINE NEGATIVE (NEGATIVE); NITRITE,URINE NEGATIVE (NEGATIVE); PROTEIN,URINE NEGATIVE (NEGATIVE)
[2020-05-02 17:42] LABS: BASOPHILS % (AUTO) 1 % (0-10); EOSINOPHILS # (AUTO) 0.1 10^3/uL (0.0-0.3); EOSINOPHILS % (AUTO) 2 % (0-10); HEMATOCRIT 41 % (35-52); HEMOGLOBIN 13.5 G/DL (11.5-16.0); LYMPHOCYTES # (AUTO) 1.9 X 10^3 (1.0-4.0); LYMPHOCYTES % (AUTO) 36 % (12-44); MEAN CORPUSCULAR HEMOGLOBIN 29 PG (25-34); MEAN CORPUSCULAR HGB CONC 33 G/DL (32-36); MEAN CORPUSCULAR VOLUME 87 FL (80-99); MEAN PLATELET VOLUME 9.1 FL (7.4-10.4); MONOCYTES # (AUTO) 0.4 X 10^3 (0.0-1.0); MONOCYTES % (AUTO) 8 % (0-12); NEUTROPHILS # (AUTO) 2.8 X 10^3 (1.8-7.8); NEUTROPHILS % (AUTO) 53 % (42-75); PLATELET COUNT 300 10^3/uL (130-400); WHITE BLOOD COUNT 5.3 10^3/uL (4.3-11.0)
[2020-05-02 17:44] LABS: BACTERIA,URINE TRACE /HPF; SQUAMOUS EPITHELIAL CELL,UR 0-2 /HPF
--- NOTE | 2020-05-02 17:48 | NUR ---
Pt declined pelvic exam.
--- NOTE | 2020-05-02 18:38 | NUR ---
outpt order faxed to registration/scheduling. Orignal given to pt.
--- NOTE | 2020-05-02 18:40 | ED GU-Female ---
General Chief Complaint: Female Reproductive Stated Complaint: APPROX 7 WKS PREG/CRAMPS Nursing Triage Note: Pt reports finding out pt is yesterday. Pt reports LMP was some time the end of March and stopped on Mar 14. Pt reports waking up from a nap today with severe abdominal cramps. Pt reports, "It feels like the baby is head down." Pt denies bleeding. Nursing Sepsis Screen: No Definite Risk Source: patient Exam Limitations: no limitations History of Present Illness Date Seen by Provider: May 02, 2020 Time Seen by Provider: 17:18 Initial Comments This 25-year-old young lady presents to the emergency room with pelvic cramping and tenderness. She reports having a positive urine test at the [facility] walk-in clinic yesterday. She denies any bleeding, fever, dysuria, vomiting, diarrhea, or constipation. She does have nausea. She denies any prior vaginal symptoms of discharge, pain with intercourse, etc. She does report one episode of chlamydia infection at age 16. She plans to follow with the [facility] clinic for this . Chart review notes O positive blood type. LMP was sometime in March but it is uncertain. She thinks she has 5-6 weeks . Allergies and Home Medications Allergies Coded Allergies: acetaminophen (Verified Allergy, Severe, 08/25/18) ondansetron HCl (Verified Allergy, Intermediate, 08/25/18) Home Medications Nitrofurantoin Monohyd/M-Cryst 100 Mg Capsule, 1 TAB PO BID Prescribed by: COURT GUADARRAMA on 01/23/202040 Phenazopyridine HCl 200 Mg Tablet, 1 TAB PO TID Prescribed by: COURT GUADARRAMA on 01/23/202040 Promethazine HCl 25 Mg Supp.rect, 25 MG RC Q6 Prescribed by: COURT GUADARRAMA on 01/23/202040 Patient Home Medication List Home Medication List Reviewed: Yes Review of Systems Review of Systems Constitutional: no symptoms reported EENTM: no symptoms reported Respiratory: no symptoms reported Cardiovascular: no symptoms reported Gastrointestinal: see HPI Genitourinary: see HPI : No Past Bjcaxdr-Rpogvx-Swocmn Hx Past Med/Social Hx: Reviewed Nursing Past Med/Soc Hx Patient Social History Alcohol Use: Denies Use Recreational Drug Use: No Smoking Status: Former Smoker Type Used: Cigarettes 2nd Hand Smoke Exposure: Yes Recent Foreign Travel: No Contact w/Someone Who Travel: No Recent Infectious Disease Expo: No Recent Hopitalizations: No Seasonal Allergies Seasonal Allergies: Yes Past Medical History Surgeries: Yes (wisdom teeth) Gallbladder, Tonsillectomy Respiratory: Yes Asthma Cardiac: No Neurological: No : Yes Last Menstrual Period: Mar 10, 2020 Reproductive Disorders: Yes (irregular menstrual cycles) Female Reproductive Disorders: Menstrual Problems, Endometriosis Genitourinary: No Gastrointestinal: Yes (S/P CHOLECYSTECTOMY) Gastroesophageal Reflux, Ulcer, Gall Bladder Disease Musculoskeletal: No Endocrine: No HEENT: Yes (S/P TONSILLECTOMY) Tonsilitis Cancer: No Psychosocial: Yes ADD/ADHD, Depression Integumentary: No Blood Disorders: No Family Medical History No Pertinent Family Hx Physical Exam Vital Signs Vital Signs - First Documented 05/02/20 17:09 Temp 36.8 Pulse 88 Resp 16 B/P (MAP) 105/58 (74) Pulse Ox 98 O2 Delivery Room Air Capillary Refill : Less Than 3 Seconds Height, Weight, BMI Height: 5'2.00" Weight: 104lbs. 4.0oz. 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, no motor/sensory deficits, alert, normal mood/affect, oriented x 3 Skin: normal color, warm/dry Progress/Results/Core Measures Suspected Sepsis Recent Fever Within 48 Hours: No Infection Criteria Present: None New/Unexplained Altered Menta: No Sepsis Screen: No Definite Risk SIRS Temperature: Pulse: 88 Respiratory Rate: 16 Laboratory Tests 05/02/20 17:30: White Blood Count 5.3 Blood Pressure 105 /58 Mean: 74 Laboratory Tests 05/02/20 17:30: Platelet Count 300 Results/Orders Lab Results Laboratory Tests Test 05/02/20 17:25 05/02/20 17:30 Range/Units Urine Color YELLOW Urine Clarity CLEAR Urine pH 7.0 5-9 Urine Specific [place] <=1.005 1.016-1.022 Urine Protein NEGATIVE NEGATIVE Urine Glucose (UA) NEGATIVE NEGATIVE Urine Ketones NEGATIVE NEGATIVE Urine Nitrite NEGATIVE NEGATIVE Urine Bilirubin NEGATIVE NEGATIVE Urine Urobilinogen 0.2 < = 1.0 MG/DL Urine Leukocyte Esterase NEGATIVE NEGATIVE Urine RBC (Auto) NEGATIVE NEGATIVE Urine RBC NONE /HPF Urine WBC NONE /HPF Urine Squamous Epithelial Cells 0-2 /HPF Urine Crystals NONE /LPF Urine Bacteria TRACE /HPF Urine Casts NONE /LPF Urine Mucus NEGATIVE /LPF Urine Culture Indicated NO White Blood Count 5.3 4.3-11.0 10^3/uL Red Blood Count 4.68 4.35-5.85 10^6/uL Hemoglobin 13.5 11.5-16.0 G/DL Hematocrit 41 35-52 % Mean Corpuscular Volume 87 80-99 FL Mean Corpuscular Hemoglobin 29 25-34 PG Mean Corpuscular Hemoglobin Concent 33 32-36 G/DL Red Cell Distribution Width 13.6 10.0-14.5 % Platelet Count 300 130-400 10^3/uL Mean Platelet Volume 9.1 7.4-10.4 FL Neutrophils (%) (Auto) 53 42-75 % Lymphocytes (%) (Auto) 36 12-44 % Monocytes (%) (Auto) 8 0-12 % Eosinophils (%) (Auto) 2 0-10 % Basophils (%) (Auto) 1 0-10 % Neutrophils # (Auto) 2.8 1.8-7.8 X 10^3 Lymphocytes # (Auto) 1.9 1.0-4.0 X 10^3 Monocytes # (Auto) 0.4 0.0-1.0 X 10^3 Eosinophils # (Auto) 0.1 0.0-0.3 10^3/uL Basophils # (Auto) 0.0 0.0-0.1 10^3/uL Human Chorionic Gonadotropin, Quant 4247 H <5 MIU/ML My Orders Orders - SMITH DIAZ MD Cbc With Automated Diff (05/02/20 17:24) Hcg,Quantitative (05/02/20 17:24) Ua Culture If Indicated (05/02/20 17:24) Vital Signs/I&O 05/02/20 18:44 Temp 36.8 Pulse 88 Resp 16 B/P (MAP) 105/58 (74) Pulse Ox 98 O2 Delivery Room Air Capillary Refill : Less Than 3 Seconds Blood Pressure Mean: 74 Progress Note : Progress Note HCG level was appropriate for gestational age. Patient was offered a pelvic exam but declined stating she would follow up at the clinic for this. Urinalysis showed no signs of infection. Ultrasound order was given for patient to return in the morning to rule out ectopic. Departure Impression Primary Impression: Cramping affecting , antepartum Disposition: HOME, SELF-CARE Condition: Stable Departure-Patient Inst. Decision time for Depature: 18:39 Referrals: [facility] [place] (PCP/Family) Primary Care Physician Patient Instructions: Stomach Pain in Early Add. Discharge Instructions: Drink plenty of clear liquids to stay well-hydrated. Benadryl 25 mg every 4 hours may help with cramping. Please return to the hospital at 7:30 tomorrow morning with your ultrasound order to obtain an ultrasound. Stay at the hospital until you receive instructions from the doctor. Return to care if you have worsening symptoms or if you develop new symptoms such as fever. Please contact [facility] tomorrow to arrange a pelvic exam. All discharge instructions reviewed with patient and/or family. Voiced understanding. Copy Copies To 1: JASMYN SUNG JOSHUA T MD May 02, 2020 18:40
[2020-05-02 18:44] VITALS: BP 105/58
== END 2020-05-02 18:44 | disposition home or self-care (01) ==
LOC: EDUNIT# 17:04 → ER 17:05
DX: O26.891 Other specified pregnancy related conditions, first trimester (principal); R10.2 Pelvic and perineal pain; Z87.891 Personal history of nicotine dependence; Z88.6 Allergy status to analgesic agent; Z88.8 Allergy status to other drugs, medicaments and biological substances; Z3A.00 Weeks of gestation of pregnancy not specified
CPT/HCPCS: 36415; 81000; 84702; 85025

== ENCOUNTER → 2020-05-03 | Outpatient (CLI) | payer SELFPAY ==
--- NOTE | 2020-05-03 09:37 | Diagnostic Imaging Report ---
PROCEDURE: US OB SINGLE FETUS <14 WKS. TECHNIQUE: Multiple real-time grayscale images were obtained over the gravid uterus in various projections. INDICATION: Pelvic pain. There is an intrauterine gestational sac with mean dimensions of approximately 5 weeks 0 days gestation. However, no pole is identified at this time. No bennett-gestational sac hemorrhage is detected. Ovaries were not visualized. No adnexal mass or free fluid is detected. IMPRESSION: Findings consistent with approximately 5 week 0 day intrauterine gestational sac. No pole is identified at this time which could be owing to early gestation. A follow-up ultrasound or correlation with serial beta hCG levels could be performed to confirm viability. No other significant abnormality is seen. Dictated by: Dictated on workstation # [id number]
== END ==
LOC: RAD 07:58
PROVIDERS: ATTEND Family Medicine
DX: O26.891 Other specified pregnancy related conditions, first trimester (principal); R10.2 Pelvic and perineal pain; Z3A.01 Less than 8 weeks gestation of pregnancy
CPT/HCPCS: 76801

== ENCOUNTER 2020-09-05 11:31 | Outpatient (CLI) | payer MEDICAID ==
[~2020-09-05] VITALS: Ht 157.5 cm; Wt 48.5 kg
--- NOTE | 2020-09-05 11:35 | NUR ---
Discharge instructions explained to pt with copy provided to pt. Pt notified of instructions to follow up with Dr. Grossman Sunday or Sunday. Pt verbalizes understanding of instructions and signs to verify. Pt ambulates off unit to private vehicle with all personal belongings. No s/s of distress noted. Addendum: 09/05/20 at 1441 by KLEVER HORNER RN Time is error. Event occurred at 1255, not 1135
--- NOTE | 2020-09-05 11:38 | NUR ---
RACHELLE MCMAHON presented to unit via wheelchair from ED, accompanied by ER staff, with c/o LEAKING FLUID,CRAMPING. RACHELLE MCMAHON weighed, gowned, voided, and to bed. EFHM and TOCO applied, VS taken. RACHELLE MCMAHON oriented to bed controls, call light, TV, heat, and A/C controls.
[2020-09-05 12:04] LABS: BILIRUBIN,URINE NEGATIVE (NEGATIVE); CLARITY,URINE CLEAR; COLOR,URINE YELLOW; GLUCOSE, URINE (UA) NEGATIVE (NEGATIVE); KETONES,URINE NEGATIVE (NEGATIVE); LEUKOCYTE ESTERASE ,URINE TRACE (NEGATIVE); NITRITE,URINE NEGATIVE (NEGATIVE); PH,URINE 6.5 (5-9); PROTEIN,URINE NEGATIVE (NEGATIVE)
[2020-09-05 12:11] LABS: BACTERIA,URINE MODERATE /HPF; SQUAMOUS EPITHELIAL CELL,UR 25-50 /HPF
--- NOTE | 2020-09-05 12:39 | NUR ---
Dr. Bar called and notified of pt arrival to unit. Per pt report she is due January 02 (23wks) and sees Dr. Grossman after switching from Dr. Bennett to Dr. Irving, and then to Dr. Grossman. Pt reports she woke up this am with severe cramping and about an hour later felt leaking that soaked her pants. Pt reports that on sono approx two weeks ago, Dr. Grossman found a "rip in my amniotic sac" that is causing leaking and constant pain and also states "this baby has been trying to come for a month already". Dr. Bar also notified of nitrazine swab, UA, FHR, ctx pattern, pt report of intercourse last night. Orders to reassure pt and send home with instructions to follow up with Dr. Grossman Sunday or Sunday. This RN inquires if would like SVE prior to dismissal and declines.
[2020-09-05 14:40] VITALS: BP 92/55
== END 2020-09-05 12:55 | disposition home or self-care (01) ==
LOC: WSo 11:31 → LDRP 11:32 → WSo 12:55
PROVIDERS: ATTEND Family Medicine
DX: O26.892 Other specified pregnancy related conditions, second trimester (principal); Z3A.23 23 weeks gestation of pregnancy
CPT/HCPCS: 81000; 87088; G0463; 99213

== ENCOUNTER → 2020-09-06 | Outpatient (CLI) | payer MEDICAID ==
--- NOTE | 2020-09-06 15:18 | Diagnostic Imaging Report ---
INDICATION: Pelvic pain. FINDINGS: There is a single live fetus in a cephalic presentation. heart rate was recorded at 146 bpm. Placenta is posterior. A minute fluid index is 12.2 cm. Cervical length is approximately 4.1 cm. IMPRESSION: Normal and hindfoot index of 12.2 cm. Dictated by: Dictated on workstation # [id number]
== END ==
LOC: RAD 13:27
PROVIDERS: ATTEND Family Medicine
DX: O26.892 Other specified pregnancy related conditions, second trimester (principal); N89.8 Other specified noninflammatory disorders of vagina
CPT/HCPCS: 76815

== ENCOUNTER 2020-09-13 09:37 | Outpatient (CLI) | payer MEDICAID ==
[~2020-09-13] VITALS: Ht 157.5 cm; Wt 50.1 kg
--- NOTE | 2020-09-13 09:46 | NUR ---
RACHELLE MCMAHON presented to unit via AMBULATORY from ED, with c/o DECREAED MOVEMENT. RACHELLE MCMAHON weighed, gowned, voided, and to bed. EFHM and TOCO applied, VS taken. RACHELLE MCMAHON oriented to bed controls, call light, TV, heat, and A/C controls.
[2020-09-13] MEDS ORDERED: PNV11TAB5 PO (09:55)
[2020-09-13 09:57] VITALS: BP 97/54
[2020-09-13 10:00] VITALS: BP 97/54
--- NOTE | 2020-09-13 10:50 | NUR ---
DR. PIÑA NOTIFIED OF PT'S ARRIVAL, C/O, GESTATION, VS, REVIEW OF STRIP. ORDER RECEIVED FOR DISCHARGE.
--- NOTE | 2020-09-13 10:59 | NUR ---
DISCHARGE PAPERS PROVIDED AND REVIEWED WITH PT, PT VERBALIZES UNDERSTANDING AND DENIES ANY QUESTIONS AT THIS TIME. PAPER SIGNED.
--- NOTE | 2020-09-13 11:00 | NUR ---
PT DISCHARGED FROM [facility] TO [facility] AMBULATORY IN STABLE CONDITION.
--- NOTE | 2020-09-14 07:55 | Physician Query-Final Dx ---
ALLISON BERGMAN 09/14/20 0755: Clinic Account Progress/Dx Physician Query: Please give diagnosis Please include # weeks gestation Date of Service Sep 13, 2020 at 09:37 THELMA PIÑA MD 09/14/202054: Clinic Account Progress/Dx DIAGNOSIS: Diagnosis Pelvic pain in 24 weeks gestation ALLISON BERGMAN Sep 14, 2020 07:55 THELMA PIÑA MD Sep 14, 2020 20:55
== END 2020-09-13 11:00 | disposition home or self-care (01) ==
LOC: WSo 09:37 → LDRP 09:39 → WSo 11:00
PROVIDERS: ATTEND Family Medicine
DX: O26.892 Other specified pregnancy related conditions, second trimester (principal); Z3A.24 24 weeks gestation of pregnancy
CPT/HCPCS: 99212

== ENCOUNTER 2020-10-11 19:48 | Outpatient (CLI) | payer MEDICAID ==
[~2020-10-11] VITALS: Ht 157.5 cm; Wt 51.7 kg
[~2020-10-11 19:48] MED LIST changes: +PNV11TAB5 PO
[2020-10-11 20:05] VITALS: BP 101/59
[2020-10-11 20:26] LABS: BILIRUBIN,URINE NEGATIVE (NEGATIVE); CLARITY,URINE CLEAR; COLOR,URINE YELLOW; GLUCOSE, URINE (UA) NEGATIVE (NEGATIVE); KETONES,URINE NEGATIVE (NEGATIVE); LEUKOCYTE ESTERASE ,URINE 1+ (NEGATIVE); NITRITE,URINE NEGATIVE (NEGATIVE); PH,URINE 5.5 (5-9); PROTEIN,URINE NEGATIVE (NEGATIVE)
[2020-10-11 20:44] LABS: BACTERIA,URINE NEGATIVE /HPF
[2020-10-11] MEDS ORDERED: LACTATED RINGERS 1,000 ML IV ONE (20:57)
[2020-10-11 20:58] VITALS: BP 101/59
[2020-10-11] MEDS ORDERED: LACTATED RINGERS 1,000 ML IV SCH (21:00)
[2020-10-11 22:14] VITALS: BP 101/59
--- NOTE | 2020-10-12 09:02 | Physician Query-Final Dx ---
ALLISON BERGMAN 10/12/20 0902: Clinic Account Progress/Dx Physician Query: Please give diagnosis Please give # weeks gestation Date of Service Oct 11, 2020 at 19:48 THELMA PIÑA MD 10/12/20 1145: Clinic Account Progress/Dx DIAGNOSIS: Diagnosis Pelvic pain in 29 weeks gestation ALLISON BERGMAN Oct 12, 2020 09:02 THELMA PIÑA MD Oct 12, 2020 11:45
== END 2020-10-11 22:14 | disposition home or self-care (01) ==
LOC: WSo 19:48 → LDRP 19:48 → WSo 22:14
PROVIDERS: ATTEND Family Medicine
DX: O26.893 Other specified pregnancy related conditions, third trimester (principal); Z3A.29 29 weeks gestation of pregnancy
CPT/HCPCS: 81000

== ENCOUNTER 2020-10-16 16:58 | Outpatient (CLI) | payer MEDICAID ==
[~2020-10-16] VITALS: Ht 157.5 cm; Wt 51.8 kg
[2020-10-16 17:20] VITALS: BP 96/54
[2020-10-16 17:22] VITALS: BP 96/54
[2020-10-16 17:36] LABS: BILIRUBIN,URINE NEGATIVE (NEGATIVE); CLARITY,URINE CLEAR; COLOR,URINE YELLOW; GLUCOSE, URINE (UA) NEGATIVE (NEGATIVE); KETONES,URINE NEGATIVE (NEGATIVE); LEUKOCYTE ESTERASE ,URINE TRACE (NEGATIVE); NITRITE,URINE NEGATIVE (NEGATIVE); PROTEIN,URINE NEGATIVE (NEGATIVE)
[2020-10-16 17:42] LABS: BACTERIA,URINE TRACE /HPF; WBC,URINE 0-2 /HPF
--- NOTE | 2020-10-18 08:09 | Physician Query-Final Dx ---
Clinic Account Progress/Dx Physician Query: Please give diagnosis Please include # weeks gestation Date of Service Oct 16, 2020 at 16:58 ALLISON BERGMAN Oct 18, 2020 08:09
== END 2020-10-16 18:07 | disposition home or self-care (01) ==
LOC: WSo 16:58 → LDRP 16:59 → WSo 18:07
PROVIDERS: ATTEND Family Medicine
DX: Z34.93 Encounter for supervision of normal pregnancy, unspecified, third trimester (principal); Z3A.29 29 weeks gestation of pregnancy
CPT/HCPCS: 81000; 99213

== ENCOUNTER 2020-10-21 10:08 | Outpatient (CLI) | payer MEDICAID ==
[~2020-10-21] VITALS: Ht 157.5 cm; Wt 51.2 kg
[2020-10-21 10:42] LABS: BILIRUBIN,URINE NEGATIVE (NEGATIVE); CLARITY,URINE CLEAR; COLOR,URINE RED; GLUCOSE, URINE (UA) NEGATIVE (NEGATIVE); KETONES,URINE NEGATIVE (NEGATIVE); LEUKOCYTE ESTERASE ,URINE TRACE (NEGATIVE); NITRITE,URINE NEGATIVE (NEGATIVE); PROTEIN,URINE NEGATIVE (NEGATIVE)
[2020-10-21 11:09] LABS: BACTERIA,URINE FEW /HPF; WBC,URINE 0-2 /HPF
[2020-10-21] MEDS ORDERED: LACTATED RINGERS 1,000 ML IV SCH (11:30)
[2020-10-21 13:38] VITALS: BP 95/55
--- NOTE | 2020-10-22 07:58 | Physician Query-Final Dx ---
ALLISON BERGMAN 10/22/20 0758: Clinic Account Progress/Dx Physician Query: Please give diagnosis Please include # weeks gestation Date of Service Oct 21, 2020 at 10:08 JASMYN SUNG DO 10/22/20 1051: Clinic Account Progress/Dx DIAGNOSIS: Diagnosis 37 week GA abdominal and back pain ALLISON BERGMAN Oct 22, 2020 07:58 JASMYN SUNG DO Oct 22, 2020 10:51
== END 2020-10-21 13:07 | disposition home or self-care (01) ==
LOC: WSo 10:08 → LDRP 10:08 → WSo 13:07
PROVIDERS: ATTEND Family Medicine
DX: O62.9 Abnormality of forces of labor, unspecified (principal); Z3A.38 38 weeks gestation of pregnancy
CPT/HCPCS: 81000; 87088; 96360; G0463; 99213

== ENCOUNTER 2020-11-13 11:33 | Outpatient (CLI) | payer MEDICAID ==
[~2020-11-13] VITALS: Ht 157.5 cm; Wt 54.7 kg
[2020-11-13 11:59] VITALS: BP 93/55
[2020-11-13] MEDS ORDERED: CETI10CA PO (12:05)
[2020-11-13] MEDS ORDERED: FLUT9.9S NS (12:05)
[2020-11-13] MEDS ORDERED: LACTATED RINGERS 1,000 ML IV ONE (12:45)
[2020-11-13] MEDS ORDERED: FAMO-119 PO (13:36)
[2020-11-13] MEDS ORDERED: SUCR1TAB PO (13:36)
[2020-11-13 13:40] VITALS: BP 93/55
--- NOTE | 2020-11-15 07:56 | Physician Query-Final Dx ---
ALLISON BERGMAN 11/15/20 0756: Clinic Account Progress/Dx Physician Query: Please give diagnosis Please include # weeks gestation Date of Service Nov 13, 2020 at 11:33 JASMYN SUNG DO 11/15/20 1515: Clinic Account Progress/Dx DIAGNOSIS: Diagnosis 32 week GA vaginal discharge. ALLISON BERGMAN Nov 15, 2020 07:56 JASMYN SUNG DO Nov 15, 2020 15:15
== END 2020-11-13 13:40 | disposition home or self-care (01) ==
LOC: WSo 11:33 → LDRP 11:34 → WSo 13:40
PROVIDERS: ATTEND Family Medicine
DX: O42.913 Preterm premature rupture of membranes, unspecified as to length of time between rupture and onset of labor, third trimester (principal); Z3A.35 35 weeks gestation of pregnancy
CPT/HCPCS: 99214

== ENCOUNTER 2020-12-04 11:21 | Outpatient (CLI) | payer MEDICAID ==
[~2020-12-04] VITALS: Ht 157.5 cm; Wt 54.6 kg
[~2020-12-04 11:21] MED LIST changes: +CETI10CA PO; +FAMO-119 PO; +FLUT9.9S NS; +SUCR1TAB PO
[2020-12-04 11:50] VITALS: BP 104/58
[2020-12-04 11:53] LABS: BILIRUBIN,URINE NEGATIVE (NEGATIVE); CLARITY,URINE CLEAR; COLOR,URINE YELLOW; GLUCOSE, URINE (UA) NEGATIVE (NEGATIVE); KETONES,URINE NEGATIVE (NEGATIVE); LEUKOCYTE ESTERASE ,URINE TRACE (NEGATIVE); NITRITE,URINE NEGATIVE (NEGATIVE); PROTEIN,URINE NEGATIVE (NEGATIVE)
[2020-12-04 12:04] LABS: BACTERIA,URINE FEW /HPF
[2020-12-04 12:28] VITALS: BP 104/58
[2020-12-04 12:45] VITALS: BP 104/58
--- NOTE | 2020-12-06 08:33 | Physician Query-Final Dx ---
ALLISON BERGMAN 12/06/20 0833: Clinic Account Progress/Dx Physician Query: Please give diagnosis Please include # weeks gestation Date of Service Dec 04, 2020 at 11:21 THELMA PIÑA MD 12/06/20 0858: Clinic Account Progress/Dx DIAGNOSIS: Diagnosis 35 weeks gestation Pelvic pressure ALLISON BERGMAN Dec 06, 2020 08:33 THELMA PIÑA MD Dec 06, 2020 08:58
== END 2020-12-04 12:45 | disposition home or self-care (01) ==
LOC: WSo 11:21 → LDRP 11:22 → WSo 12:45
PROVIDERS: ATTEND Family Medicine
DX: O26.893 Other specified pregnancy related conditions, third trimester (principal); R10.2 Pelvic and perineal pain; Z3A.35 35 weeks gestation of pregnancy
CPT/HCPCS: 81000; 99213

== ENCOUNTER 2020-12-06 15:13 | Outpatient (CLI) | payer MEDICAID ==
[~2020-12-06] VITALS: Ht 157.5 cm; Wt 55.3 kg
[2020-12-06 15:20] VITALS: BP 102/57
[2020-12-06 15:36] VITALS: BP 102/57
[2020-12-06 15:53] LABS: BILIRUBIN,URINE NEGATIVE (NEGATIVE); CLARITY,URINE CLEAR; COLOR,URINE YELLOW; GLUCOSE, URINE (UA) NEGATIVE (NEGATIVE); KETONES,URINE NEGATIVE (NEGATIVE); LEUKOCYTE ESTERASE ,URINE TRACE (NEGATIVE); NITRITE,URINE NEGATIVE (NEGATIVE); PROTEIN,URINE NEGATIVE (NEGATIVE)
[2020-12-06 16:05] LABS: BACTERIA,URINE TRACE /HPF; WBC,URINE 0-2 /HPF
--- NOTE | 2020-12-08 08:32 | Physician Query-Final Dx ---
ALLISON BERGMAN 12/08/20 0832: Clinic Account Progress/Dx Physician Query: Please give diagnosis Please include # weeks gestation Date of Service Dec 06, 2020 at 15:13 THELMA PIÑA MD 12/08/20 0917: Clinic Account Progress/Dx DIAGNOSIS: Diagnosis r/o rupture of membranes/nitrazine negative 35 weeks gestation ALLISON BERGMAN Dec 08, 2020 08:32 THELMA PIÑA MD Dec 08, 2020 09:17
== END 2020-12-06 16:35 | disposition home or self-care (01) ==
LOC: WSo 15:13 → LDRP 15:13 → WSo 16:35
PROVIDERS: ATTEND Family Medicine
DX: O41.93X0 Disorder of amniotic fluid and membranes, unspecified, third trimester, not applicable or unspecified (principal); Z3A.35 35 weeks gestation of pregnancy
CPT/HCPCS: 81000; 99213

== ENCOUNTER 2020-12-12 10:04 | Outpatient (CLI) | payer MEDICAID ==
[~2020-12-12] VITALS: Ht 157.5 cm; Wt 54.7 kg
[2020-12-12 10:25] VITALS: BP 99/59
--- NOTE | 2020-12-13 08:26 | Physician Query-Final Dx ---
Clinic Account Progress/Dx Physician Query: Please give diagnosis Please include # weeks gestation Date of Service December 12, 2020 at 10:04 ALLISON BERGMAN December 13, 2020 08:26
== END 2020-12-12 11:20 | disposition home or self-care (01) ==
LOC: LDRP 10:04 → WSo 10:04
PROVIDERS: ATTEND Family Medicine
DX: O42.90 Premature rupture of membranes, unspecified as to length of time between rupture and onset of labor, unspecified weeks of gestation (principal); Z3A.00 Weeks of gestation of pregnancy not specified
CPT/HCPCS: 99213

== ENCOUNTER 2020-12-16 07:51 | Outpatient (CLI) | payer MEDICAID ==
[~2020-12-16] VITALS: Ht 160 cm; Wt 54.8 kg
[2020-12-16 08:15] VITALS: BP 95/54
--- NOTE | 2020-12-17 07:25 | Physician Query-Final Dx ---
ALLISON BERGMAN 12/17/20 0725: Clinic Account Progress/Dx Physician Query: Please give diagnosis Please include # weeks gestation Date of Service December 16, 2020 at 07:51 JASMYN SUNG DO 12/20/20 1612: Clinic Account Progress/Dx DIAGNOSIS: Diagnosis 36w6d GA Contractions, not in active labor ALLISON BERGMAN December 17, 2020 07:25 JASMYN SUNG DO December 20, 2020 16:12
== END 2020-12-16 09:03 | disposition home or self-care (01) ==
LOC: WSo 07:51 → LDRP 07:53 → WSo 09:03
PROVIDERS: ATTEND Family Medicine
DX: O62.9 Abnormality of forces of labor, unspecified (principal); Z3A.00 Weeks of gestation of pregnancy not specified
CPT/HCPCS: 99213

== ENCOUNTER 2020-12-20 15:15 | Inpatient (IN) | payer MEDICAID ==
[2020-12-20] VITALS (26 sets, daily range): BP systolic 80–117; BP diastolic 43–69
[~2020-12-20] VITALS: Ht 157.5 cm; Wt 56.3 kg
[2020-12-20] MEDS ORDERED: D5 LR IV SOLUTION 1,000 ML IV ONE (17:48)
[2020-12-20] MEDS: D5 LR IV SOLUTION 1,000 ML IV SCH (18:15)
[2020-12-20 18:41] LABS: BASOPHILS # (AUTO) 0.1 10^3/uL (0.0-0.1); BASOPHILS % (AUTO) 1 % (0-10); EOSINOPHILS # (AUTO) 0.1 10^3/uL (0.0-0.3); EOSINOPHILS % (AUTO) 1 % (0-10); HEMATOCRIT 39 % (35-52); HEMOGLOBIN 11.6 g/dL (11.5-16.0); LYMPHOCYTES # (AUTO) 2.8 10^3/uL (1.0-4.0); LYMPHOCYTES % (AUTO) 24 % (12-44); MEAN CORPUSCULAR HEMOGLOBIN 24 pg (25-34); MEAN CORPUSCULAR HGB CONC 30 g/dL (32-36); MEAN CORPUSCULAR VOLUME 80 fL (80-99); MEAN PLATELET VOLUME 9.7 fL (9.0-12.2); MONOCYTES # (AUTO) 0.9 10^3/uL (0.0-1.0); MONOCYTES % (AUTO) 7 % (0-12); NEUTROPHILS # (AUTO) 7.7 10^3/uL (1.8-7.8); NEUTROPHILS % (AUTO) 66 % (42-75); PLATELET COUNT 259 10^3/uL (130-400); WHITE BLOOD COUNT 11.6 10^3/uL (4.3-11.0)
[2020-12-20] MEDS ORDERED: fentaNYL 2 mcg/ml BUPIVA 0.125 100 ML ONE (19:04)
[2020-12-20] MEDS ORDERED: BUPIVACAINE 0.25% 30 ML (SENSORCAINE) VIAL ONE (19:07)
[2020-12-20] MEDS ORDERED: fentaNYL INJ 100 MCG/2 ML AMP ONE (19:07)
[2020-12-20] MEDS ORDERED: NALOXONE 0.4 MG/ML 1 ML (NARCAN) VIAL IV PRN (19:45)
[2020-12-20] MEDS ORDERED: LACTATED RINGERS 1,000 ML IV ONE (19:45)
[2020-12-20] MEDS ORDERED: CATHETER FLUSH 10 ML SYR IV PRN (19:45)
[2020-12-20] MEDS: fentaNYL 2 mcg/ml BUPIVA 0.125 100 ML IV SCH (19:56)
[2020-12-21] VITALS (51 sets, daily range): BP systolic 69–108; BP diastolic 39–67
[2020-12-21] MEDS: D5 LR IV SOLUTION 1,000 ML IV SCH ×2 (01:11→09:22)
[2020-12-21] MEDS: fentaNYL 2 mcg/ml BUPIVA 0.125 100 ML IV SCH (02:32)
[2020-12-21] MEDS ORDERED: OXYTOCIN PRE-MIX DRIP 500 ML IV ONE (07:13)
[2020-12-21] MEDS ORDERED: CYCL10TA9 PO (08:10)
[2020-12-21] MEDS ORDERED: SUCR1TAB PO (08:10)
--- NOTE | 2020-12-21 08:10 | History & Physical-OB ---
OB - Chief Complaint & HPI Date/Time Date of Admission: Date of Admission: December 20, 2020 at 18:00 Date seen by a Provider: December 21, 2020 Time Seen by a Provider: 08:05 Chief Complaint/History OB-Reason for Admission/Chief: Onset of Labor Hx : 8 Hx Para: 4 Expected Date of Delivery: January 07, 2021 Gestational Age in Weeks: 37 Gestational Age in Days: 4 History of Labs O pos, antibody neg, RI. HIV/hepB/RPR NR. GC/chlamydia neg. 3 hour glucola nml, GBS neg Allergies and Home Medications Allergies Coded Allergies: acetaminophen (Verified Allergy, Severe, 10/11/20) ondansetron HCl (Verified Allergy, Intermediate, 10/11/20) Home Medications Cetirizine HCl 10 Mg Capsule, 10 MG PO DAILY, (Reported) Last Action: Reviewed Cyclobenzaprine HCl 10 Mg Tablet, 1 TAB PO TID PRN for MUSCLE SPASMS, (Reported) Last Action: Reviewed Famotidine 20 Mg Tablet, 20 MG PO DAILY, (Reported) Last Action: Reviewed Fluticasone Propionate 9.9 Ml [place].susp, 1 SPRAY NS DAILY, (Reported) 1 SPRAY EACH NARE DAILY Last Action: Reviewed Fva619/FA/Omega3/Dha/Fish Oil 1 Each Tab.chew, 2 EACH PO DAILY, (Reported) Last Action: Reviewed Sucralfate 1 Gm Tablet, 1 GM PO TID Prescribed by: THELMA PIÑA on 12/21/20 0810 Last Action: Reviewed Patient Home Medication List Home Medication List Reviewed: Yes OB - History Hx of Present Care: Yes Ultrasounds: Abnormal US findings (First trimester subchorionic hemorrhage, second trimester small placental dumont, anatomy normal, posterior placenta) Information Induced Hypertension: No Maternal Gestational Diabetes: No Hemorrhage: No Obstetrical History Hx : 8 Hx Para: 4 Hx # Term Pregnancies: 4 Hx # Pregnancies: 0 Number of Living Children: 4 Hx Total # of Abortions (Spona: 3 Hx Multiple Gestation: No Hx Ectopic : No Hx Stillbirth: No Hx Induced Hypertens: No Hx Maternal Gestational Diabet: No Hx Hemorrhage: No Delivery History Hx Dystocia: No Hx Forceps Assisted Delivery: No Hx Vacuum Extraction Assisted: No Hx Placenta Abnormality: No Hx Distress: No Hx Large For Gestational Age I: No Hx Small for Gestational Age I: No Hx Section: No Hx Vaginal Delivery Post C-Sec: No Hx Blood Disorders: No Adverse Rxn to Tranfusion: No Patient Past Medical History PMHx: Depression Mild intermittent asthma SurgHx: Cholecystectomy Tonsillectomy [place] teeth extraction Social History/Family History Alcohol Use: Denies Use Recreational Drug Use: No Smoking Cessation: Never smoker 2nd Hand Smoke Exposure: No Immunizations Tetanus Booster (TDap): Unknown (declined third trimester Tdap in clinic) Rubella: immune RPR/VDRL: Negative GBS Status: Negative HBsAG: Negative OB - Admission Exam Physical Exam Vitals: Vital Signs 12/20/20 12/21/20 12/21/20 21:00 05:00 07:00 Temp 36.5 Pulse 103 Resp 18 B/P (MAP) 78/43 (55) Pulse Ox 97 O2 Delivery Room Air HEENT: NCAT Abdomen: Gravid Extremities: Normal Cervical Dilatation: 8cm Effacement: 75% Station: -3 Membranes: Ruptured (AROM at time of exam) Amniotic Fluid: Clear Heart Rate: 150's Accelerations: Accelerations Present Decelerations: No Decelerations Short Term Variability: Present Senior Living Variability: Average (6-25) Contractions on Admission: < 5 Minutes Apart Date/Time Contractions Began;: 12/20/20 around 7 am Labs Laboratory Tests Test 12/20/20 18:00 Range/Units White Blood Count 11.6 H 4.3-11.0 10^3/uL Red Blood Count 4.83 3.80-5.11 10^6/uL Hemoglobin 11.6 11.5-16.0 g/dL Hematocrit 39 35-52 % Mean Corpuscular Volume 80 80-99 fL Mean Corpuscular Hemoglobin 24 L 25-34 pg Mean Corpuscular Hemoglobin Concent 30 L 32-36 g/dL Red Cell Distribution Width 15.9 H 10.0-14.5 % Platelet Count 259 130-400 10^3/uL Mean Platelet Volume 9.7 9.0-12.2 fL Immature Granulocyte % (Auto) 1 % Neutrophils (%) (Auto) 66 42-75 % Lymphocytes (%) (Auto) 24 12-44 % Monocytes (%) (Auto) 7 0-12 % Eosinophils (%) (Auto) 1 0-10 % Basophils (%) (Auto) 1 0-10 % Neutrophils # (Auto) 7.7 1.8-7.8 10^3/uL Lymphocytes # (Auto) 2.8 1.0-4.0 10^3/uL Monocytes # (Auto) 0.9 0.0-1.0 10^3/uL Eosinophils # (Auto) 0.1 0.0-0.3 10^3/uL Basophils # (Auto) 0.1 0.0-0.1 10^3/uL Immature Granulocyte # (Auto) 0.1 0.0-0.1 10^3/uL OB - Assessment/Plan/Diagnosis Assessment Assessment: active labor Admission Dx 25 yo at 37w3d gestation in active labor GBS neg Admission Status: Inpatient Order (span 2 midnights) Reason for Inpatient Admission: Labor, delivery and course Plan Plan: Expectant Management Induction Method: AROM (expectant management overnight, AROM done this morning) THELMA PIÑA MD December 21, 2020 08:10
[2020-12-21] MEDS ORDERED: OXYTOCIN PRE-MIX DRIP 500 ML IV SCH ×2 (08:30→11:45)
[2020-12-21] MEDS ORDERED: PROMETHAZINE INJ 25 MG/ML (PHENERGAN) AMP ONE (08:32)
[2020-12-21] MEDS ORDERED: PROMETHAZINE INJ 25 MG/ML (PHENERGAN) AMP IVP ONE (08:45)
--- NOTE | 2020-12-21 11:14 | OB Labor & Delivery Record ---
Vag Delivery Note Vag Delivery Note Date of Delivery: 12/21/20 Preoperative Diagnosis: Greta Quinn is a (25 /Para 8 / 4,Gestational Age (wks)37with 4 days Postoperative Diagnosis: Same Surgeon: THELMA PIÑA Anesthesia: Epidural Delivery Type: Findings: Viable female , apgars pending, weight 7#10 Lacerations: None Intact placenta with 3 vessel cord. No nuchal cord, body cord or shoulder dystocia Estimated Blood Loss: 350 ml Complications: None Condition: Stable Description of Procedure: The patient is a 25 year old female who presented in active labor. She was admitted and informed consent was obtained. Her labor course was unremarkable. She progressed to complete dilatation and began to push. She was then set up for delivery. The 's head was delivered atraumatically in the OA position. The shoulders and remainder of the 's body were then delivered without difficulty. Upon delivery, the head was held below the level of the perineum and the mouth and nares were bulb suctioned. The cord was doubly clamped and cut and the was handed off to the pediatric staff. An intact placenta with 3-vessel cord delivered via [place] and there was found to be minimal bleeding.~ Vigorous fundal massage was performed and the fundus was found to be firm. IV oxytocin was given. Examination of the vagina and perineum revealed a no lacerations. Following the delivery, sponge, instrument and needle counts were correct. Mom and baby were both in stable condition in the labor suite. Vitals - Labs Vital Signs - I&O Vital Signs Date Time Temp Pulse Resp B/P (MAP) Pulse Ox O2 Delivery O2 Flow Rate FiO2 12/21/20 10:12 96 18 80/48 (59) Room Air 12/21/20 09:58 87 18 91/55 (67) Room Air 12/21/20 09:44 96 18 83/52 (62) Room Air 12/21/20 09:29 96 18 94/51 (65) Room Air 12/21/20 09:22 37.1 12/21/20 09:11 101 18 90/52 (65) Room Air 12/21/20 08:57 90 18 92/51 (65) Room Air 12/21/20 08:42 96 18 97/56 (70) Room Air 12/21/20 08:27 100 18 99/56 (70) Room Air 12/21/20 08:13 93 18 100/51 (67) Room Air 12/21/20 07:57 117 18 107/56 (73) Room Air 12/21/20 07:42 87 18 86/50 (62) Room Air 12/21/20 07:27 110 18 77/44 (55) Room Air 12/21/20 07:12 90 18 81/45 (57) Room Air 12/21/20 07:00 103 18 78/43 (55) Room Air 12/21/20 06:45 88 18 82/45 (57) Room Air 12/21/20 06:30 82 18 85/46 (59) Room Air 12/21/20 06:15 90 18 84/45 (58) Room Air 12/21/20 06:00 88 18 79/40 (53) Room Air 12/21/20 05:45 93 18 82/44 (57) Room Air 12/21/20 05:30 82 18 85/46 (59) Room Air 12/21/20 05:15 88 18 77/44 (55) Room Air 12/21/20 05:00 36.5 98 18 69/39 (49) Room Air 12/21/20 04:45 97 18 72/40 (51) Room Air 12/21/20 04:30 83 18 75/42 (53) Room Air 12/21/20 04:15 101 18 91/52 (65) Room Air 12/21/20 04:00 97 18 92/55 (67) Room Air 12/21/20 03:45 88 18 92/55 (67) Room Air 12/21/20 03:30 100 18 94/53 (67) Room Air 12/21/20 03:15 100 18 78/49 (59) Room Air 12/21/20 03:00 100 18 81/49 (60) Room Air 12/21/20 02:45 94 18 79/46 (57) Room Air 12/21/20 02:30 96 18 78/40 (53) Room Air 12/21/20 02:00 93 18 77/45 (56) Room Air 12/21/20 01:45 88 18 79/45 (56) Room Air 12/21/20 01:30 36.3 80 18 77/42 (54) Room Air 12/21/20 01:15 88 18 78/46 (57) Room Air 12/21/20 01:00 86 18 78/44 (55) Room Air 12/21/20 00:45 90 18 79/44 (56) Room Air 12/21/20 00:15 104 18 80/53 (62) Room Air 12/21/20 00:00 112 18 106/67 (80) Room Air 12/20/20 23:45 86 18 80/43 (55) Room Air 12/20/20 23:15 95 18 94/55 (68) Room Air 12/20/20 23:00 36.5 102 18 101/59 (73) Room Air 12/20/20 22:30 81 18 94/55 (68) Room Air 12/20/20 22:15 75 18 98/50 (66) Room Air 12/20/20 21:45 87 18 94/55 (68) Room Air 12/20/20 21:30 98 18 95/55 (68) Room Air 12/20/20 21:15 100 18 86/52 (63) Room Air 12/20/20 21:00 81 18 86/54 (65) 97 Room Air 12/20/20 20:45 79 18 83/50 (61) 97 Room Air 12/20/20 20:27 108 18 99/55 (70) 97 Room Air 12/20/20 20:23 108 18 95/58 (70) 97 Room Air 12/20/20 20:17 100 18 102/51 (68) 99 Room Air 12/20/20 20:07 106 18 91/54 (66) 99 Room Air 12/20/20 20:02 107 18 97/54 (68) 99 Room Air 12/20/20 19:56 107 18 92/61 (71) 99 Room Air 12/20/20 19:53 109 18 98/69 (79) 99 Room Air 12/20/20 19:43 112 18 117/55 (75) 98 Room Air 12/20/20 19:40 91 18 100/66 (77) 98 Room Air 12/20/20 19:36 93 18 100/57 (71) 99 Room Air 12/20/20 19:33 112 18 104/57 (73) 98 Room Air 12/20/20 19:30 122 18 94/51 (65) 98 Room Air 12/20/20 19:27 115 18 99/52 (68) 99 Room Air 12/20/20 19:23 123 18 112/61 (78) 99 Room Air 12/20/20 19:20 37.1 106 18 111/64 (80) 99 Room Air 12/20/20 15:50 36.6 99 18 99 Room Air 12/20/20 15:50 36.6 99 18 103/66 (78) 99 Room Air Labs Laboratory Tests 12/20/20 18:00: White Blood Count 11.6H, Red Blood Count 4.83, Hemoglobin 11.6, Hematocrit 39, Mean Corpuscular Volume 80, Mean Corpuscular Hemoglobin 24L, Mean Corpuscular Hemoglobin Concent 30L, Red Cell Distribution Width 15.9H, Platelet Count 259, Mean Platelet Volume 9.7, Immature Granulocyte % (Auto) 1, Neutrophils (%) (Auto) 66, Lymphocytes (%) (Auto) 24, Monocytes (%) (Auto) 7, Eosinophils (%) (Auto) 1, Basophils (%) (Auto) 1, Neutrophils # (Auto) 7.7, Lymphocytes # (Auto) 2.8, Monocytes # (Auto) 0.9, Eosinophils # (Auto) 0.1, Basophils # (Auto) 0.1, Immature Granulocyte # (Auto) 0.1 THELMA PIÑA MD December 21, 2020 11:14
[2020-12-21] MEDS ORDERED: BENZOCAINE/MENTHOL (DERMOPLAST) 56 ML CAN TP PRN (11:45)
[2020-12-21] MEDS ORDERED: MEASLES,MUMPS,RUBELLA 1 EA INJ SQ ONE (11:45)
[2020-12-21] MEDS ORDERED: WITCH HAZEL(TUCKS) 40 EA JAR TOP PRN (11:45)
[2020-12-21] MEDS ORDERED: TETANUS,DIPTH,PERTUSS P/F (BOOSTRIX) 0.5 ML VIAL IM ONE (11:45)
[2020-12-21] MEDS ORDERED: IBUPROFEN 600 MG (MOTRIN) TAB PO ONE (12:07)
[2020-12-21] MEDS: IBUPROFEN 600 MG (MOTRIN) TAB PO SCH ×3 (12:16→23:34)
[2020-12-21] MEDS ORDERED: CATHETER FLUSH 10 ML SYR IV SCH (14:00)
[2020-12-21] MEDS: DOCUSATE SODIUM 100 MG (COLACE) CAP PO SCH (19:52)
[2020-12-22 04:00] VITALS: BP 93/51
[2020-12-22 05:27] LABS: BASOPHILS # (AUTO) 0.1 10^3/uL (0.0-0.1); BASOPHILS % (AUTO) 1 % (0-10); EOSINOPHILS # (AUTO) 0.2 10^3/uL (0.0-0.3); EOSINOPHILS % (AUTO) 2 % (0-10); HEMATOCRIT 31 % (35-52); HEMOGLOBIN 9.4 g/dL (11.5-16.0); LYMPHOCYTES # (AUTO) 2.7 10^3/uL (1.0-4.0); LYMPHOCYTES % (AUTO) 24 % (12-44); MEAN CORPUSCULAR HEMOGLOBIN 24 pg (25-34); MEAN CORPUSCULAR HGB CONC 30 g/dL (32-36); MEAN CORPUSCULAR VOLUME 79 fL (80-99); MEAN PLATELET VOLUME 9.6 fL (9.0-12.2); MONOCYTES # (AUTO) 1.1 10^3/uL (0.0-1.0); MONOCYTES % (AUTO) 9 % (0-12); NEUTROPHILS # (AUTO) 7.2 10^3/uL (1.8-7.8); NEUTROPHILS % (AUTO) 64 % (42-75); PLATELET COUNT 182 10^3/uL (130-400); WHITE BLOOD COUNT 11.3 10^3/uL (4.3-11.0)
[2020-12-22] MEDS: IBUPROFEN 600 MG (MOTRIN) TAB PO SCH ×2 (05:42→13:21)
--- NOTE | 2020-12-22 09:11 | Anesthesia-Regional Post-Op ---
Regional Patient Condition Mental Status: Alert, Oriented x3 Circulation: Same as Pre-Op Headache: Absent Sensation: Full Recovery Motor Block: Absent Post Op Complications Complications None Follow Up Care/Instructions Patient Instructions None needed. Anesthesia/Patient Condition Patient is doing well, no complaints, stable vital signs, no apparent adverse anesthesia problems. No complications reported per nursing. MOJGAN GUZMAN CRNA December 22, 2020 09:11
[2020-12-22 09:15] VITALS: BP 100/67
[2020-12-22] MEDS: DOCUSATE SODIUM 100 MG (COLACE) CAP PO SCH (10:53)
--- NOTE | 2020-12-22 13:34 | Discharge Summary ---
Diagnosis/Chief Complaint Date of Admission December 20, 2020 at 18:00 Date of Discharge 12/22/2020 Admission Diagnosis Admission Diagnosis Active Labor Third Trimester 37 week gestation Discharge Diagnosis Term Vaginal delivery 37 weeks completed Discharge Summary-Simple/Stand Procedures by Dr Grossman Discharge Physical Examination Allergies: Coded Allergies: acetaminophen (Verified Allergy, Severe, 10/11/20) ondansetron HCl (Verified Allergy, Intermediate, 10/11/20) Vitals & I&Os Vital Sign - Last 12Hours Date Time Temp Pulse Resp B/P (MAP) Pulse Ox O2 Delivery O2 Flow Rate FiO2 12/22/20 09:15 36.3 86 20 100/67 (78) 98 Room Air General Appearance: Alert, Oriented X3, Cooperative, No Acute Distress HEENT: Mucous Memb Moist/[place] Respiratory: Clear to Auscultation, Normal Air Movement Cardiovascular: Regular Rate, No Murmurs Abdominal: Normal Bowel Sounds, Soft, No Tenderness, No Masses, Other (Fundus firm and below umbilicus) Extremities: No Edema, No Tenderness/Swelling Skin: No Rashes, No Breakdown Neuro: Normal Speech, Sensation Intact, Cranial Nerves 3-12 NL Psych/Mental Status: Mental Status NL, Mood NL Hospital Course Was the Problem List Reviewed?: Yes See final discharge diagnosis. Discussion & Recommendations 25 yo G8 Now P5 delivered female via @ 37.4. Discharge Condition at discharge stable Instructions to patient/family Please see electronic discharge instructions given to patient. Discharge Medications Reviewed and agree with Discharge Medication list on patient's Discharge Instruction sheet Copy Copies To 1: THELMA GROSSMAN MD, HOLLY R MD December 22, 2020 13:34
[2020-12-22] MEDS ORDERED: IBUP-844 PO (13:36)
--- NOTE | 2020-12-22 13:37 | Discharge Summary ---
Discharge Inst-[facility] Reconcile Patient Problems Problems Reviewed?: Yes Depart Medications New, Converted or Re-Newed RX: Transmitted to Pharmacy New Medications: Ibuprofen (Ibu) 600 Mg Tablet 600 MG PO Q6HR, #90 TAB Continued Medications: Cetirizine HCl (Zyrtec) 10 Mg Capsule 10 MG PO DAILY, CAP Cyclobenzaprine HCl (Cyclobenzaprine HCl) 10 Mg Tablet 1 TAB PO TID PRN for MUSCLE SPASMS Fluticasone Propionate (Flonase Allergy Relief) 9.9 Ml [place].susp 1 SPRAY NS DAILY, #1 EACH 1 SPRAY EACH NARE DAILY Osb762/FA/Omega3/Dha/Fish Oil ( Gummies) 1 Each Tab.chew 2 EACH PO DAILY, TAB Discontinued Medications: Famotidine (Pepcid) 20 Mg Tablet 20 MG PO DAILY, TAB Sucralfate (Sucralfate) 1 Gm Tablet 1 GM PO TID, #1 TAB Follow Up/Instructions Goal/Follow Up: F/u with Dr Grossman 6 weeks Activity Activity: Activity as Tolerated Driving Instructions: You May Drive NO SMOKING: NO SMOKING Nothing Inside Vagina: No Douching, No [place], No Tampons Diet Discharge Diet: No Restrictions Symptoms to Report to : Bleeding Excessive, Fever Over 101 Degrees F, Lightheadedness, Pain/Pressure in Shoulder For Any Problems or Questions: Contact Your Physician BAYLEE SPARKS MD December 22, 2020 13:37
== END 2020-12-22 14:20 | disposition home or self-care (01) | DRG 807 ==
LOC: WSo 15:15 → LDRP 15:15 → INTOOBSV 18:00 → WSo 18:00 → LDRP 18:00 → OBSVTOIN 18:00 → LDRP 20:25
PROVIDERS: ADMIT Family Medicine; ATTEND Family Medicine
PROC: 10E0XZZ Delivery of Products of Conception, External Approach (ICD-10-PCS; principal; 2020-12-21)
DX: O80 Encounter for full-term uncomplicated delivery (principal); Z37.0 Single live birth; Z3A.37 37 weeks gestation of pregnancy
CPT/HCPCS: 36415; 85025; 86850; 86900; 86901; 99212